=== PATIENT | female | born 1985 | race Caucasian/White ===

== ENCOUNTER 2020-09-15 08:32 | Emergency (ER) | payer BC ==
[~2020-09-15] VITALS: Ht 162.6 cm; Wt 77.0 kg
[2020-09-15 09:03] LABS: BILIRUBIN,URINE NEGATIVE (NEG); CLARITY,URINE CLEAR; COLOR,URINE YELLOW; NITRITE,URINE NEGATIVE (NEG); PH,URINE 8.5 (<5.0-8.0); PROTEIN,URINE NEGATIVE (NEG-TRACE); UROBILINOGEN,URINE 0.2 mg/dL (0.2 mg/dL)
[2020-09-15 09:16] LABS: BASO # 0.1 x10^3/uL (0.0-0.2); BASO % 2 % (0-3); EOS # 0.1 x10^3/uL (0.0-0.7); EOS % 2 % (0-3); HEMATOCRIT 39.8 % (36.0-47.0); HEMOGLOBIN 13.9 g/dL (12.0-15.5); LYMPH # 1.6 x10^3/uL (1.0-4.8); LYMPH % 25 % (24-48); MEAN CORPUSCULAR HEMOGLOBIN 33 pg (25-35); MEAN CORPUSCULAR HGB CONC 35 g/dL (31-37); MEAN CORPUSCULAR VOLUME 95 fL (79-100); MONO # 0.6 x10^3/uL (0.0-1.1); MONO % 10 % (0-9); NEUT # 3.9 x10^3/uL (1.8-7.7); NEUT % 62 % (31-73); PLATELET COUNT 261 x10^3/uL (140-400); RED BLOOD COUNT 4.21 x10^6/uL (3.50-5.40); RED CELL DISTRIBUTION WIDTH 14.2 % (11.5-14.5); WHITE BLOOD COUNT 6.2 x10^3/uL (4.0-11.0)
--- NOTE | 2020-09-15 09:22 | PHYS DOC ---
Past Medical History Past Medical History: Anxiety, Depression, Hypertension, Other Additional Past Medical Histor: PTSD Past Surgical History: Other Additional Past Surgical Histo: BACK SURGERY X3 Smoking Status: Current Every Day Smoker Alcohol Use: Heavy General Adult EDM: Chief Complaint: NAUSEA/VOMITING/DIARRHA HPI: HPI: Patient is a 35 year old female who presented to ER for evaluation of nausea vomiting, chest pain, epigastric abdominal pain since yesterday. Patient said when she coughed she noticed some trace of blood . Patient also noticed some blood in her vomitus this morning. Patient denies being on blood thinner. Patient had the same problem when she was seen at [facility] on September 01, 2020. Patient had a negative ultrasound of her abdomen and a negative CTA of her chest. Patient was tested for COVID-19 at the time and it was negative as well. Patient denies any recent travel or operation. Patient had history hypertension. Patient has been going through a rough time lately. She has been drinking alcohol a lot due to stress. Patient denied suicidal ideation, denied homicidal ideation. Review of Systems: Review of Systems: Constitutional: Denies fever or chills. [] Eyes: Denies change in visual acuity. [] HENT: Denies nasal congestion or sore throat. [] Respiratory: Positive for cough and shortness of breath. [] Cardiovascular: Denies chest pain or edema. [] GI: Positive for abdominal pain, nausea, vomiting, bloody stools or diarrhea. [] : Denies dysuria. [] Musculoskeletal: Denies back pain or joint pain. [] Integument: Denies rash. [] Neurologic: Denies headache, focal weakness or sensory changes. [] Endocrine: Denies polyuria or polydipsia. [] Lymphatic: Denies swollen glands. [] Psychiatric: Denies depression or anxiety. [] Heart Score: Risk Factors: Risk Factors: DM, Current or recent (<one month) smoker, HTN, HLP, family history of CAD, obesity. Risk Scores: Score 0 - 3: 2.5% MACE over next 6 weeks - Discharge Home Score 4 - 6: 20.3% MACE over next 6 weeks - Admit for Clinical Observation Score 7 - 10: 72.7% MACE over next 6 weeks - Early Invasive Strategies Allergies: Allergies: Allergies Coded Allergies Type Severity Reaction Last Updated Verified No Known Drug Allergies 09/15/20 No Physical Exam: PE: Constitutional: Well developed, well nourished, no acute distress, non-toxic appearance. [] HENT: Normocephalic, atraumatic, bilateral external ears normal, oropharynx moist, no oral exudates, nose normal. [] Eyes: PERRLA, EOMI, conjunctiva normal, no discharge. [] Neck: Normal range of motion, no tenderness, supple, no stridor. [] Cardiovascular:Heart rate regular rhythm, no murmur [] Lungs & Thorax: Bilateral breath sounds clear to auscultation [] Abdomen: Bowel sounds normal, soft, no tenderness, no masses, no pulsatile masses. [] Skin: Warm, dry, no erythema, no rash. [] Back: No tenderness, no CVA tenderness. [] Extremities: No tenderness, no cyanosis, no clubbing, ROM intact, no edema. [] Neurologic: Alert and oriented X 3, normal motor function, normal sensory function, no focal deficits noted. [] Psychologic: Affect normal, judgement normal, mood normal. [] Current Patient Data: Labs: Laboratory Tests Test 09/15/20 08:50 POC Urine HCG, Qualitative Hcg negative (Negative) Vital Signs: Vital Signs Date Time Temp Pulse Resp B/P (MAP) Pulse Ox O2 Delivery O2 Flow Rate FiO2 09/15/20 08:40 98.6 100 18 203/114 (143) 99 Room Air 98.6 EKG: EKG: EKG was done at 847, heart rate 94 bpm, sinus rhythm, no ST segment elevation. Radiology/Procedures: Radiology/Procedures: [][facility] [address] [place] [address] IMAGING REPORT Signed PATIENT: JULIA GURROLA ACCOUNT: [id number] : 1985 LOCATION: ER AGE: 35 SEX: F EXAM STATUS: REG ER ORD. PHYSICIAN: MILEY BOOKER DO REASON: chest pain X 2 WEEKS PROCEDURE: CHEST AP ONLY INDICATION: Reason: chest pain X 2 WEEKS / Spl. Instructions: / History: COMPARISON: September 01, 2020 FINDINGS: Single view of chest obtained. No focal airspace consolidation. Cardiomediastinal contour unremarkable. No acute osseous abnormality. IMPRESSION: * No focal airspace consolidation or edema. Electronically signed by: Veronica Nieto MD (09/15/2020 10:15 AM) [id number] DICTATED and SIGNED BY: VERONICA NIETO MD DATE: 09/15/20 [id number] [facility] [address] [place] [address] IMAGING REPORT Signed PATIENT: JULIA GURROLA ACCOUNT: [id number] : 1985 LOCATION: ER AGE: 35 SEX: F EXAM STATUS: REG ER ORD. PHYSICIAN: MILEY BOOKER DO REASON: RUQ, EPIGASTRIC ABDOMINAL PAIN, ELEVATED LFT PROCEDURE: ABDOMEN LTD INDICATION : Reason: RUQ, EPIGASTRIC ABDOMINAL PAIN, ELEVATED LFT / Spl. Instructions: / History: COMPARISON: None TECHNIQUE: Multiple ultrasound images obtained through the abdomen in grayscale and color. FINDINGS: Liver: Echogenic. Gallbladder: There are some low-level internal echoes. IVC: Partially distended at level of liver. Common Bile Duct: Not dilated. Pancreas: No gross abnormality identified in visualized portions of pancreas. Right Kidney: No hydronephrosis. IMPRESSION: * Liver is mildly echogenic. Nonspecific but can be seen with fatty infiltration. * Low-level internal echoes at the gallbladder. Could be from artifact or a small amount of debris within Electronically signed by: Veronica Nieto MD (09/15/2020 12:13 PM) [id number] DICTATED and SIGNED BY: VERONICA NIETO MD DATE: 09/15/20 [id number] Course & Med Decision Making: Course & Med Decision Making Pertinent Labs and Imaging studies reviewed. (See chart for details) Patient feel much better, she did not want to stay in the hospital. Patient will be discharged home with a new medication for her blood pressure. Patient will need to follow-up with her family physician for reevaluation this week. Dragon Disclaimer: Dragon Disclaimer: This electronic medical record was generated, in whole or in part, using a voice recognition dictation system. Departure Departure Impression: Primary Impression: Gastritis Additional Impressions: Hypertension Elevated liver enzymes Disposition: 01 HOME SELF CARE/HOMELESS Condition: IMPROVED Referrals: DAPHNE BLOOM (PCP) please follow up with your doctor this week for reevaluation Patient Instructions: Alcoholic Liver Disease, [id number], Gastritis, Adult, Hypertension Additional Instructions: Thank you for visiting our Emergency Department. We appreciate you trusting us with your care. If any additional problems come up don't hesitate to return to visit us. Please follow up with your primary care provider so they can plan additional care if needed and know about the problem that you had. If symptoms worsen come back to the Emergency Department. Any concerning symptoms that start such as chest pain, shortness of air, weakness or numbness on one side of the body, running high fevers or any other concerning symptoms return to the ER. Scripts Amlodipine Besylate (NORVASC) 5 Mg Tablet 1 TAB PO DAILY, #30 TAB Prov: MILEY BOOKER DO 09/15/20 Sucralfate (CARAFATE) 1 Gm Tablet 1 TAB PO QID for 14 Days, #56 TAB 0 Refills Prov: MILEY BOOKER DO 09/15/20 Omeprazole Magnesium (PRILOSEC OTC) 20 Mg Tablet.dr 1 TAB PO DAILY for 30 Days, #30 TAB 0 Refills Prov: MILEY BOOKER DO 09/15/20 MILEY BOOKER DO Sep 15, 2020 09:22
[2020-09-15 09:31] LABS: BACTERIA,URINE 0 /HPF (0-FEW); WBC,URINE RARE /HPF (0-4)
[2020-09-15 09:32] LABS: RBC,URINE 0 /HPF (0-2)
[2020-09-15 09:52] LABS: PROTHROMBIN TIME PATIENT 12.4 SEC (11.7-14.0)
[2020-09-15 10:13] LABS: CALCIUM 9.3 mg/dL (8.5-10.1); CREATININE 0.9 mg/dL (0.6-1.0); GFR 71.7; POTASSIUM 3.1 mmol/L (3.5-5.1)
[2020-09-15] MEDS ORDERED: MORPHINE SULFATE 4 MG/ML VIAL. IV ONE ×2 (10:15→12:30)
[2020-09-15] MEDS ORDERED: ONDANSETRON PF 4 MG/2 ML VIAL. IVP ONE (10:15)
--- NOTE | 2020-09-15 10:17 | RAD ---
INDICATION: Reason: chest pain X 2 WEEKS / Spl. Instructions: / History: COMPARISON: September 01, 2020 FINDINGS: Single view of chest obtained. No focal airspace consolidation. Cardiomediastinal contour unremarkable. No acute osseous abnormality. IMPRESSION: * No focal airspace consolidation or edema. Electronically signed by: Pelon Sexton MD (09/15/2020 10:15 AM) [id number]
[2020-09-15 10:19] LABS: ALBUMIN 3.9 g/dL (3.4-5.0); ALBUMIN/GLOBULIN RATIO 1.1 (1.0-1.7); MAGNESIUM 1.7 mg/dL (1.8-2.4); TOTAL BILIRUBIN 0.6 mg/dL (0.2-1.0); TOTAL PROTEIN 7.5 g/dL (6.4-8.2)
[2020-09-15] MEDS ORDERED: POTASSIUM CHLORIDE 10 MEQ TABLET.ER. PO ONE (10:45)
[2020-09-15] MEDS ORDERED: MAGNESIUM SULFATE 1GM 100 ML IV ONE (12:00)
--- NOTE | 2020-09-15 12:16 | RAD ---
INDICATION : Reason: RUQ, EPIGASTRIC ABDOMINAL PAIN, ELEVATED LFT / Spl. Instructions: / History: COMPARISON: None TECHNIQUE: Multiple ultrasound images obtained through the abdomen in grayscale and color. FINDINGS: Liver: Echogenic. Gallbladder: There are some low-level internal echoes. IVC: Partially distended at level of liver. Common Bile Duct: Not dilated. Pancreas: No gross abnormality identified in visualized portions of pancreas. Right Kidney: No hydronephrosis. IMPRESSION: * Liver is mildly echogenic. Nonspecific but can be seen with fatty infiltration. * Low-level internal echoes at the gallbladder. Could be from artifact or a small amount of debris within Electronically signed by: Pelon Sexton MD (09/15/2020 12:13 PM) [id number]
[2020-09-15] MEDS ORDERED: cloNIDine HCL 0.1 MG TABLET PO ONE (12:30)
[2020-09-15 13:21] VITALS: BP 180/105
[2020-09-15] MEDS ORDERED: AMLO5TAB4 PO (13:22)
[2020-09-15] MEDS ORDERED: OMEP20TA63 PO (13:22)
[2020-09-15] MEDS ORDERED: SUCR1TAB35 PO (13:22)
--- NOTE | 2020-09-16 15:47 | NUR ---
IP: Attempted to call COVID results. No answer. Voicemail box full and could not leave a message.
--- NOTE | 2020-09-17 09:41 | NUR ---
IP: Pt called to get COVID results. Informed pt of negative test. Pt verbalized understanding.
== END 2020-09-15 13:45 | disposition home or self-care (01) ==
LOC: ER 08:32
DX: K29.70 Gastritis, unspecified, without bleeding (principal); I10 Essential (primary) hypertension; Z20.818 Contact with and (suspected) exposure to other bacterial communicable diseases; R74.8 Abnormal levels of other serum enzymes; R10.13 Epigastric pain; R11.2 Nausea with vomiting, unspecified; R07.89 Other chest pain; F41.9 Anxiety disorder, unspecified; F32.9 Major depressive disorder, single episode, unspecified; F17.200 Nicotine dependence, unspecified, uncomplicated; F10.10 Alcohol abuse, uncomplicated; F43.10 Post-traumatic stress disorder, unspecified; Z98.890 Other specified postprocedural states
CPT/HCPCS: 36415; 71045; 76705; 80053; 81001; 81025; 83690; 83735; 83880; 84484; 85025; 85610; 85730; 93005; 96365; 96375; 96376; 99285; C9803; J2270; J2405; J3475; U0003

== ENCOUNTER 2020-12-08 11:35 | Emergency (ER) | payer BC ==
[~2020-12-08] VITALS: Ht 162.6 cm; Wt 80.0 kg
[~2020-12-08 11:35] MED LIST: AMLO5TAB4 PO; OMEP20TA63 PO; SUCR1TAB35 PO
[2020-12-08] MEDS ORDERED: IV NORMAL SALINE 1000ML BAG 1,000 ML IV SCH (12:45)
[2020-12-08] MEDS ORDERED: ONDANSETRON PF 4 MG/2 ML VIAL. IVP ONE ×2 (12:45→18:45)
[2020-12-08] MEDS ORDERED: MORPHINE SULFATE 4 MG/ML VIAL. IV ONE ×2 (12:45→16:30)
[2020-12-08 13:33] LABS: BASO # 0.1 x10^3/uL (0.0-0.2); BASO % 1 % (0-3); EOS % 0 % (0-3); HEMATOCRIT 41.2 % (36.0-47.0); HEMOGLOBIN 14.5 g/dL (12.0-15.5); LYMPH # 1.1 x10^3/uL (1.0-4.8); LYMPH % 19 % (24-48); MEAN CORPUSCULAR HEMOGLOBIN 37 pg (25-35); MEAN CORPUSCULAR HGB CONC 35 g/dL (31-37); MEAN CORPUSCULAR VOLUME 105 fL (79-100); MONO # 0.4 x10^3/uL (0.0-1.1); MONO % 7 % (0-9); NEUT # 4.1 x10^3/uL (1.8-7.7); NEUT % 72 % (31-73); PLATELET COUNT 123 x10^3/uL (140-400); RED BLOOD COUNT 3.92 x10^6/uL (3.50-5.40); RED CELL DISTRIBUTION WIDTH 18.3 % (11.5-14.5); WHITE BLOOD COUNT 5.7 x10^3/uL (4.0-11.0)
--- NOTE | 2020-12-08 13:38 | RAD ---
INDICATION : Reason: ruq PAIN / Spl. Instructions: / History: COMPARISON: September 15, 2020 TECHNIQUE: Multiple ultrasound images obtained through the abdomen in grayscale and color. FINDINGS: Liver: Echogenic Gallbladder: No wall thickening or stones. IVC: Partially distended at level of liver. Common Bile Duct: Not dilated. Pancreas: No gross abnormality identified in visualized portions of pancreas. Only partially seen sec ondary to overlying structures obscuring. Right Kidney: No hydronephrosis. IMPRESSION: * No biliary ductal dilation or gallstones. * Liver is echogenic. Nonspecific but can be seen with fatty infiltration. Electronically signed by: Pelon Sexton MD (12/08/2020 1:36 PM) [id number]
[2020-12-08 13:52] LABS: ALBUMIN 3.6 g/dL (3.4-5.0); CALCIUM 8.8 mg/dL (8.5-10.1); CREATININE 0.9 mg/dL (0.6-1.0); GFR 71.7; TOTAL BILIRUBIN 1.2 mg/dL (0.2-1.0); TOTAL PROTEIN 7.2 g/dL (6.4-8.2)
[2020-12-08 13:58] LABS: BILIRUBIN,URINE NEGATIVE (NEG); CLARITY,URINE CLEAR; COLOR,URINE YELLOW; NITRITE,URINE NEGATIVE (NEG); PROTEIN,URINE NEGATIVE (NEG-TRACE); UROBILINOGEN,URINE 0.2 mg/dL (0.2 mg/dL)
[2020-12-08 14:02] LABS: POTASSIUM 2.9 mmol/L (3.5-5.1)
[2020-12-08] MEDS ORDERED: FAMOTIDINE 20 MG/2 ML VIAL IVP ONE (14:15)
[2020-12-08 14:16] LABS: BACTERIA,URINE 0 /HPF (0-FEW); RBC,URINE 0 /HPF (0-2); WBC,URINE OCC /HPF (0-4)
[2020-12-08] MEDS ORDERED: KETOROLAC 15 MG/ML VIAL. IVP ONE (15:15)
[2020-12-08] MEDS ORDERED: CONTRAST GIVEN. MC PRN (15:15)
[2020-12-08] MEDS ORDERED: IOHEXOL 300 MG/ML 100ML VIAL. IV ONE (15:30)
--- NOTE | 2020-12-08 15:36 | RAD ---
INDICATION: Reason: abd pain / Spl. Instructions: IV OMNI 300 75 MLS / History: . COMPARISON: Ultrasound from earlier same day TECHNIQUE: Axial CT images obtained through the abdomen and pelvis with contrast. One or more of the following individualized dose reduction techniques were utilized for this examinat ion: 1. Automated exposure control; 2. Adjustment of the mA and/or kV according to patient size; 3 . Use of iterative reconstruction technique. FINDINGS: Abdominal aorta is not aneurysmal. Liver is diffusely low density. No peripancreatic fluid collection. Spleen is unremarkable. No left-sided hydronephrosis. Urinary bladder partially distended. No right-sided hydronephrosis. No periappendiceal inflammatory changes. Colon is contracted which limits evaluation. No dilated loops of bowel to suggest obstruction. Degenerative changes of the spine. IMPRESSION: * No evidence of bowel obstruction or appendicitis. * No hydronephrosis. * Liver is echogenic. Nonspecific but can be seen with fatty infiltration. Electronically signed by: Pelon Sexton MD (12/08/2020 3:34 PM) [id number]
--- NOTE | 2020-12-08 17:59 | PHYS DOC ---
Past Medical History Past Medical History: Anxiety, Depression, Hypertension, Liver Disease, Other Additional Past Medical Histor: PTSD (RENETTA CATES MD) Past Surgical History: Other Additional Past Surgical Histo: BACK SURGERY X3 (RENETTA CATES MD) Smoking Status: Current Every Day Smoker Alcohol Use: Heavy (RENETTA CATES MD) Adult General Chief Complaint Chief Complaint: COUGH HPI HPI Patient is a 35 year old female with past medical history of anxiety depression presenting emergency department complaint of new onset right-sided chest and right upper quadrant abdominal pain. Patient states it started 2 days ago as a worsening sensation associated with mild nausea without any episodes of vomiting or diarrhea. Denies any associated fever. But does state that she. Notes the pain is worse with inspiration. Denies any history of similar symptoms. (RENETTA CATES MD) Review of Systems Review of Systems Constitutional: Denies fever or chills [] Eyes: Denies change in visual acuity, redness, or eye pain [] HENT: Denies nasal congestion or sore throat [] Respiratory: Denies cough or shortness of breath [] Cardiovascular: No additional information not addressed in HPI [] GI: Denies abdominal pain, nausea, vomiting, bloody stools or diarrhea [] : Denies dysuria or hematuria [] Musculoskeletal: Denies back pain or joint pain [] Integument: Denies rash or skin lesions [] Neurologic: Denies headache, focal weakness or sensory changes [] Endocrine: Denies polyuria or polydipsia [] All other systems were reviewed and found to be within normal limits, except as documented in this note. (RENETTA CATES MD) Current Medications Current Medications Current Medications Medications (Trade) Dose Ordered Sig/Deborah Start Time Stop Time Status Last Admin Dose Admin Famotidine (Pepcid Vial) 20 mg 1X ONCE 12/08/20 14:15 12/08/20 14:16 DC 12/08/20 15:03 20 MG Info (CONTRAST GIVEN -- Rx MONITORING) 1 each PRN DAILY PRN 12/08/20 15:15 12/10/20 15:14 Iohexol (Omnipaque 300 Mg/ml) 75 ml 1X ONCE 12/08/20 15:30 12/08/20 15:31 DC 12/08/20 15:14 75 ML Ketorolac Tromethamine (Toradol 15mg Vial) 15 mg 1X ONCE 12/08/20 15:15 12/08/20 15:16 DC 12/08/20 15:03 15 MG Lorazepam (Ativan Inj) 1 mg 1X ONCE 12/08/20 18:15 12/08/20 18:16 DC 12/08/20 18:32 1 MG Morphine Sulfate (Morphine Sulfate) 4 mg 1X ONCE 12/08/20 16:30 12/08/20 16:31 DC 12/08/20 16:42 4 MG Ondansetron HCl (Zofran) 4 mg 1X ONCE 12/08/20 18:45 12/08/20 18:46 DC 12/08/20 18:35 4 MG Sodium Chloride 1,000 ml @ 1,000 mls/hr Q1H 12/08/20 12:45 12/08/20 13:44 DC 12/08/20 13:43 1,000 MLS/HR (LE,AJ H DO) Allergies Allergies Allergies Coded Allergies Type Severity Reaction Last Updated Verified No Known Drug Allergies 09/15/20 No (LE,AJ H DO) Physical Exam Physical Exam Constitutional: Well developed, well nourished, no acute distress, non-toxic appearance. [] HENT: Normocephalic, atraumatic, bilateral external ears normal, oropharynx moist, no oral exudates, nose normal. [] Eyes: PERRLA, EOMI, conjunctiva normal, no discharge. [] Neck: Normal range of motion, no tenderness, supple, no stridor. [] Cardiovascular:Heart rate regular rhythm, no murmur [] Lungs & Thorax: Bilateral breath sounds clear to auscultation [] Abdomen: Bowel sounds normal, soft, moderate right upper quadrant tenderness., no masses, no pulsatile masses. [] Skin: Warm, dry, no erythema, no rash. [] Back: No tenderness, no CVA tenderness. [] Extremities: No tenderness, no cyanosis, no clubbing, ROM intact, no edema. [] Neurologic: Alert and oriented X 3, normal motor function, normal sensory funct ion, no focal deficits noted. [] Psychologic: Affect normal, judgement normal, mood normal. [] (RENETTA CATES MD) Current Patient Data Vital Signs Vital Signs Date Time Temp Pulse Resp B/P (MAP) Pulse Ox O2 Delivery O2 Flow Rate FiO2 12/08/20 17:20 91 135/74 (94) 95 Room Air 12/08/20 16:42 18 12/08/20 13:45 97.2 97.2 (LE,AJ H DO) Lab Values Laboratory Tests Test 12/08/20 13:20 12/08/20 13:28 White Blood Count 5.7 x10^3/uL (4.0-11.0) Red Blood Count 3.92 x10^6/uL (3.50-5.40) Hemoglobin 14.5 g/dL (12.0-15.5) Hematocrit 41.2 % (36.0-47.0) Mean Corpuscular Volume 105 fL (79-100) H Mean Corpuscular Hemoglobin 37 pg (25-35) H Mean Corpuscular Hemoglobin Concent 35 g/dL (31-37) Red Cell Distribution Width 18.3 % (11.5-14.5) H Platelet Count 123 x10^3/uL (140-400) L Neutrophils (%) (Auto) 72 % (31-73) Lymphocytes (%) (Auto) 19 % (24-48) L Monocytes (%) (Auto) 7 % (0-9) Eosinophils (%) (Auto) 0 % (0-3) Basophils (%) (Auto) 1 % (0-3) Neutrophils # (Auto) 4.1 x10^3/uL (1.8-7.7) Lymphocytes # (Auto) 1.1 x10^3/uL (1.0-4.8) Monocytes # (Auto) 0.4 x10^3/uL (0.0-1.1) Eosinophils # (Auto) 0.0 x10^3/uL (0.0-0.7) Basophils # (Auto) 0.1 x10^3/uL (0.0-0.2) D-Dimer (Winter) 1.08 ug/mlFEU (0.00-0.50) H Urine Collection Type Unknown Urine Color Yellow Urine Clarity Clear Urine pH 7.0 (<5.0-8.0) Urine Specific [place] <=1.005 (1.000-1.030) Urine Protein Negative mg/dL (NEG-TRACE) Urine Glucose (UA) Negative mg/dL (NEG) Urine Ketones (Stick) Negative mg/dL (NEG) Urine Blood Trace (NEG) Urine Nitrite Negative (NEG) Urine Bilirubin Negative (NEG) Urine Urobilinogen Dipstick 0.2 mg/dL (0.2 mg/dL) Urine Leukocyte Esterase Negative (NEG) Urine RBC 0 /HPF (0-2) Urine WBC Occ /HPF (0-4) Urine Squamous Epithelial Cells Few /LPF Urine Bacteria 0 /HPF (0-FEW) Sodium Level 132 mmol/L (136-145) L Potassium Level 2.9 mmol/L (3.5-5.1) *L Chloride Level 91 mmol/L (98-107) L Carbon Dioxide Level 27 mmol/L (21-32) Anion Gap 14 (6-14) Blood Urea Nitrogen 3 mg/dL (7-20) L Creatinine 0.9 mg/dL (0.6-1.0) Estimated GFR (Cockcroft-Gault) 71.7 BUN/Creatinine Ratio 3 (6-20) L Glucose Level 88 mg/dL (70-99) Calcium Level 8.8 mg/dL (8.5-10.1) Total Bilirubin 1.2 mg/dL (0.2-1.0) H Aspartate Amino Transferase (AST) 192 U/L (15-37) H Alanine Aminotransferase (ALT) 127 U/L (14-59) H Alkaline Phosphatase 129 U/L (46-116) H Total Protein 7.2 g/dL (6.4-8.2) Albumin 3.6 g/dL (3.4-5.0) Albumin/Globulin Ratio 1.0 (1.0-1.7) Lipase 285 U/L (73-393) POC Urine HCG, Qualitative Hcg negative (Negative) Laboratory Tests 12/08/20 13:20 Laboratory Tests 12/08/20 13:20 (LE,AJ H DO) EKG EKG [] (RENETTA CATES MD) Radiology/Procedures Radiology/Procedures [] (RENETTA CATES MD) Radiology/Procedures Perfusion lung scan HISTORY: Shortness of breath and chest pain, elevated d-dimer. TECHNIQUE: 5 mCi technetium 99m macroaggregated albumin intravenous. No ventilatory imaging was acquired due to the current Covid pandemic protocol. COMPARISON: Chest x-ray September 15, 2020 FINDINGS: No perfusion defect of the lungs evident. Negative for pulmonary emboli. IMPRESSION: Negative for pulmonary artery emboli. Electronically signed by: Mukesh Enamorado MD (12/08/2020 6:40 PM) [facility] (AJ PEREZ DO) Course & Med Decision Making Course & Med Decision Making Pertinent Labs and Imaging studies reviewed. (See chart for details) 35f new onset of right upper quadrant abdominal pain with some tenderness in the right breast primary concern for acute cholecystitis given the patient's age and physical exam. Will initiate work-up with labs and ultrasound to evaluate. Initial evaluation with ultrasound and CT was negative. However the patient stated still having significant abdominal pain and did note some chest pain with significant pleurisy. Patient was also noted to be tachycardic on arrival. I did obtain a D-dimer which was positive. I had a discussion with radiology since the patient already received a CT scan with contrast I recommend patient go for VQ scan to rule out pulmonary embolism. This has been relayed to the patient she understands the current plan (RENETTA CATES MD) Course & Med Decision Making Assumed care from Dr. Cates. In summary, 35-year-old female who presents with 2 days of right upper quadrant and right lower chest pain. Pending was a VQ scan, which was found to be negative for PE. Review of labs show a mild transaminitis as well as hypokalemia, to be repleted orally. The previously ordered CT abdomen/pelvis as well as right upper quadrant ultrasound do reveal findings consistent with possible hepatic steatosis, which would account for the transaminitis. No acute emergent pathology was identified. Do not suspect cardiac etiology. Will be discharged home with outpatient PMD and gastroe nterology follow-up. Return precautions given. (AJ PEREZ DO) Dragon Disclaimer Dragon Disclaimer This electronic medical record was generated, in whole or in part, using a voice recognition dictation system. (RENETTA CATES MD) Departure Departure Impression: Primary Impression: Hepatic steatosis Disposition: 01 DC HOME SELF CARE/HOMELESS Condition: STABLE Referrals: SERENA MUNGUIA MD Patient Instructions: Liver Disease Diet Additional Instructions: Your imaging in the ED today showed "fatty infiltration" of the liver. Your liver enzymes were also slightly elevated. There was no evidence of acute cholecystitis (gallbladder infection/inflammation). Please follow up with gastroenterology for further evaluation. Avoid significant alcohol use in the interim. Scripts Ondansetron (ONDANSETRON ODT) 4 Mg Tab.rapdis 1 TAB PO PRN Q6-8HRS, #16 TAB Prov: AJ PEREZ DO 12/08/20 RENETTA CATES MD Dec 08, 2020 17:59 AJ PEREZ DO Dec 08, 2020 19:05
[2020-12-08] MEDS ORDERED: ONDANSETRON PF 4 MG/2 ML VIAL. ONE (18:28)
--- NOTE | 2020-12-08 18:42 | RAD ---
Perfusion lung scan HISTORY: Shortness of breath and chest pain, elevated d-dimer. TECHNIQUE: 5 mCi technetium 99m macroaggregated albumin intravenous. No ventilatory imaging was acqui red due to the current Covid pandemic protocol. COMPARISON: Chest x-ray September 15, 2020 FINDINGS: No perfusion defect of the lungs evident. Negative for pulmonary emboli. IMPRESSION: Negative for pulmonary artery emboli. Electronically signed by: Mukesh Enamorado MD (12/08/2020 6:40 PM) [facility]
[2020-12-08] MEDS ORDERED: POTASSIUM CHLORIDE 20 MEQ TABLET.ER. PO ONE (19:00)
[2020-12-08] MEDS ORDERED: ONDA4TAB12 PO (19:02)
[2020-12-08] MEDS ORDERED: CHLO25CA9 PO (19:26)
[2020-12-08 19:36] VITALS: BP 145/88
== END 2020-12-08 19:50 | disposition home or self-care (01) ==
LOC: ER 11:35
DX: K76.0 Fatty (change of) liver, not elsewhere classified (principal); R10.11 Right upper quadrant pain; R20.2 Paresthesia of skin; R11.0 Nausea; F41.9 Anxiety disorder, unspecified; F32.9 Major depressive disorder, single episode, unspecified; I10 Essential (primary) hypertension; F17.200 Nicotine dependence, unspecified, uncomplicated; F10.10 Alcohol abuse, uncomplicated; Z98.890 Other specified postprocedural states
CPT/HCPCS: 36415; 74177; 76705; 78580; 80053; 81001; 81025; 83690; 85025; 85379; 96361; 96374; 96375; 96376; 99285; A9540; J1885; J2060; J2270; J2405; J3490; J7030; Q9967

== ENCOUNTER → 2021-07-28 | Outpatient (CLI) | payer MEDICAID ==
[~2021-07-28] VITALS: Ht 162.6 cm; Wt 54.4 kg
[~2021-07-28] MED LIST changes: +CBD PO; +CHLO25CA9 PO; +FLUO40CA2 PO; +HYDR2TAB31 PO; +MORPHINE SULFATE 2 MG/ML INJ. IVP ONE; +MORPHINE SULFATE 4 MG/ML INJ. ONE; +ONDA4TAB12 PO; +SINCALIDE 1.09 MCG in IV NORMAL SALINE 50ML 30 ML IV ONE; +VENTOLIN HFA18 GM INH
[2021-07-28 08:54] LABS: CHOLESTEROL/HDL RATIO 2.2
--- NOTE | 2021-07-28 12:27 | RAD ---
HEPATOBILIARY SCAN WITH EJECTION FRACTION History: Reason: ABDOMEN PAIN, recurrent pancreatitis COMPARISON: CT abdomen and pelvis with contrast 12/08/2020. Procedure: Serial static images are obtained of the liver and biliary system in the frontal projectio n following IV administration of 5.5 mCi of Technetium 99m Choletec. After filling of the gallbladd er, 1.1 mcg of sincalide were infused over 30 minutes and dynamic imaging continued over this period. The gallbladder ejection fraction was calculated. Findings: There is prompt hepatic clearance of tracer from the blood pool. There is homogeneous distribution th roughout the liver. There is normal emptying into the biliary system and small bowel. Tracer in the g allbladder is not visualized until 75 minute delay image. The sincalide infusion is then started. The gallbladder ejection fraction measures 1% (normal gallbladder EF is 35% or greater). IMPRESSION: 1. The cystic duct and common bile duct are patent. Negative for acute cholecystitis. 2. The gallbladder ejection fraction is abnormal measuring 1%. Findings may indicate gallbladder dysk inesia or chronic cholecystitis. Electronically signed by: Heath Hauser MD (07/28/2021 12:24 PM) [id number]
[2021-07-29 14:18] LABS: CA 19-9 31 U/mL (0-35)
== END ==
LOC: NM 09:03
PROVIDERS: ATTEND Internal Medicine Gastroenterology
DX: K83.5 Biliary cyst (principal); K85.00 Idiopathic acute pancreatitis without necrosis or infection
CPT/HCPCS: 36415; 78227; 80061; 82784; 86301; A9537; J2805

== ENCOUNTER → 2021-08-06 | Outpatient (CLI) | payer MEDICAID ==
[~2021-08-06] MED LIST changes: -MORPHINE SULFATE 2 MG/ML INJ. IVP ONE; -MORPHINE SULFATE 4 MG/ML INJ. ONE; +OXYC-325 PO; -SINCALIDE 1.09 MCG in IV NORMAL SALINE 50ML 30 ML IV ONE
== END ==
LOC: LAB 11:04
PROVIDERS: ATTEND Surgery
DX: K82.8 Other specified diseases of gallbladder (principal); Z01.812 Encounter for preprocedural laboratory examination; Z20.822 Contact with and (suspected) exposure to COVID-19
CPT/HCPCS: U0003; U0005

== ENCOUNTER 2021-08-10 06:06 | Day surgery (SDC) | payer MEDICAID ==
[~2021-08-10] VITALS: Ht 162.6 cm; Wt 52.7 kg
[~2021-08-10 06:06] MED LIST changes: +ACETAMINOPHEN 500 MG TABLET PO PRN; +DEXAMETHASONE SOD PHOS 4 MG/ML VIAL ONE; +GLYCOPYRROLATE 1 MG/5 ML VIAL. ONE; +HYDROmorphone 2 MG/ML VIAL IVP PRN; +HYDROmorphone 2 MG/ML VIAL ONE; +IV RINGERS,LACTATED 1000ML 1,000 ML IV SCH; +KETAMINE HCL IN NACL, ISO-OSM 50 MG/5 ML SYRINGE ONE; +LIDOCAINE 2% PF 5 ML VIAL. ONE; +MIDAZOLAM HCL/PF 2 MG/2 ML VIAL. ONE; +NEOSTIGMINE METHYLSULFATE 5 MG/5 ML SYRINGE. ONE; +ONDANSETRON PF 4 MG/2 ML VIAL. ONE; -OXYC-325 PO; +PROCHLORPERAZINE 10 MG/2 ML VIAL. IVP PRN; +PROPOFOL 10 MG/ML (20ML) VIAL. IV ONE; +ROCURONIUM 50 MG/5 ML VIAL. ONE; +SUCCINYLCHOLINE 200 MG/10 ML VIAL. ONE; +ceFAZolin SODIUM IV Push 1 GM VIAL. IVP PRN; +fentaNYL PF VIAL 100 MCG/2 ML VIAL IVP PRN; +fentaNYL PF VIAL 100 MCG/2 ML VIAL ONE
[2021-08-10 06:40] VITALS: BP 117/84
[2021-08-10] MEDS ORDERED: IOHEXOL 300 MG/ML 50 ML VIAL. ONE (06:59)
[2021-08-10] MEDS ORDERED: SURGICEL HEMOSTAT 4X8 EACH. ONE (06:59)
[2021-08-10] MEDS ORDERED: BUPIVACAINE-EPI 0.25%-1:200000 MPF 30 ML VIAL. ONE (06:59)
[2021-08-10 07:40] LABS: CALCIUM 8.4 mg/dL (8.5-10.1); CREATININE 0.6 mg/dL (0.6-1.0); GFR 113.8; POTASSIUM 3.1 mmol/L (3.5-5.1)
[2021-08-10 07:46] LABS: ALBUMIN 2.9 g/dL (3.4-5.0); ALBUMIN/GLOBULIN RATIO 0.8 (1.0-1.7); TOTAL BILIRUBIN 0.4 mg/dL (0.2-1.0); TOTAL PROTEIN 6.4 g/dL (6.4-8.2)
--- NOTE | 2021-08-10 08:29 | PDOC4 ---
Operative Note Operative Note Date: August 102020 at 827 Preoperative diagnosis biliary dyskinesia Postoperative diagnosis: Same Procedure: Laparoscopic cholecystectomy with fluorescein cholangiography Surgeon: [place] Specimen: Gallbladder Dictation: Patient is a 36-year-old female has had right upper quadrant abdominal pain episodes of pancreatitis in the past HIDA scan showed ejection fraction of 1%. Procedure of laparoscopic cholecystectomy was explained to the patient detail risk benefits were also discussed including bleeding infection injury to intra-abdominal contents possible necessitating further open operations alternatives to this procedure also discussed with patient who seemed to understand and gave a verbal written consent to have the procedure performed. Patient was taken to the operating room placed in the supine position general anesthesia was initiated once patient was sleeping intubated her abdomen was prepped and draped usual sterile fashion using ChloraPrep area just below the umbilicus was injected with quarter percent Marcaine with epinephrine incision was made 11 blade scalpel and a varies needle was placed within the abdomen creating pneumoperitoneum once this was complete the millimeter port was placed in a 5 mm camera was placed within the abdomen which was inspected no other abnormalities were noted a 5 mm port was placed in the epigastrium a 5 mm port was placed in the right midabdomen a 5 mm port was placed in the right lateral abdomen all under direct visualization. The dome of the gallbladder is grasped retracted cephalad the infundibulum of the gallbladder is grasped retracted laterally exposing the triangle of adherent tissue the triangle were taken down exposing the cystic duct and cystic artery this was checked with fluorescein which showed contrast in the cystic duct as well as the common bile duct no evidence of obstruction the cystic duct was doubly clipped and transected the cystic artery was clipped and transected electrocautery the gallbladder was taken off the liver with hook electrocautery placed in Endo Catch bag moving the umbilicus right upper quadrant is irrigated suctioned dry hemostasis deemed be appropriate the pneumoperitoneum was reduced all ports were removed the fascial defect at the umbilicus was closed with [id number] 0 Vicryl suture skin was reapproximated all port sites for subcuticular Monocryl Mastisol Steri-Strips and island dressings were applied. Patient was awakened extubated operating room taken recovery in stable condition all sponge instrument needle counts listed as correct estimated blood loss 5 mL RENÉE PEPE MD Aug 10, 2021 08:29
[2021-08-10] MEDS ORDERED: OXYC-325 PO (08:31)
--- NOTE | 2021-08-10 08:33 | DISCH ---
DISCHARGE INSTRUCTIONS Condition on Discharge Condition on Discharge: Stable Activity After Discharge Activity Instructions for Disc: Avoid exertion Other activity instructions: No lifting more than 20 pounds for 2-week Diet after Discharge Diet after Discharge: Low Fat Wound Incision Care Other wound/incision instructi: May shower in 24 hours Contacting the DRCarmel after DC Call your doctor for: If your condition worsens Follow-Up Follow up with: Dr. Pepe in 2-week RENÉE PEPE MD Aug 10, 2021 08:33
[2021-08-10] MEDS ORDERED: MORPHINE SULFATE 2 MG/ML INJ. ONE (08:41)
[2021-08-10] MEDS: MORPHINE SULFATE 2 MG/ML INJ. IVP PRN ×2 (08:42→08:53)
[2021-08-10] MEDS ORDERED: fentaNYL PF VIAL 100 MCG/2 ML VIAL ONE (08:45)
[2021-08-10 08:52] VITALS: BP 117/74
[2021-08-10] MEDS ORDERED: HYDROcodone/APAP 5/325MG 1 TAB TABLET ONE (08:58)
[2021-08-10] MEDS ORDERED: oxyCODONE/APAP 5/325 1 TAB TABLET PO ONE (09:00)
[2021-08-10] MEDS: fentaNYL PF VIAL 100 MCG/2 ML VIAL IVP PRN ×2 (09:02→09:10)
[2021-08-10] MEDS ORDERED: ONDANSETRON PF 4 MG/2 ML VIAL. ONE (09:23)
[2021-08-10] MEDS ORDERED: ONDANSETRON PF 4 MG/2 ML VIAL. IVP ONE (09:30)
--- NOTE | 2021-08-11 16:09 | PATHOLOGY ---
[facility] Accession Number: [id number] . 01 Material submitted: . gallbladder - GALLBLADDER AND CONTENTS . 01 Clinical history: . BILIARY DYSKINESIA LAP REJI . 02 Diagnosis: Gallbladder, laparoscopic cholecystectomy: - Chronic cholecystitis, mild. . (JPM:mm; 08/11/2021) [facility] 08/11/2021 1052 Local . 02 Comment: There are no calculi identified within the gallbladder lumen or specimen container. There is no evidence of malignancy. . (JPM:mml; 08/11/2021) . 02 Electronically signed: . Eder Callaway MD, Pathologist NPI- [id number] . 01 Gross description: . Fixative: Formalin Labeled: Gallbladder and contents Specimen received: Intact gallbladder Dimensions: 7.1 x 3.0 x 2.5 cm Serosa: Purple-fermin and smooth to slightly roughened Lymph node: None identified Mucosa: Velvety, bile-stained Average wall thickness: Up to 0.3 Calculi: None present Abnormalities: None identified . A1- Engraver Flatware body, fundus, and the cystic duct margin. ([facility]; 08/10/2021) NRI/NRI 08/10/2021 1617 Local . 02 Microscopic: . . . 02 Pathologist provided ICD-10: K81.1 . 02 CPT . 087258 Specimen Comment: A courtesy copy of this report has been sent to [phone] Specimen Comment: Report sent to Performed at: [address] [facility] [address], [place], [place] [id number] MD Devin Kumari MD Phone: [phone] Performed at: 02 [facility] [address] [place], [place] [id number] MD Eder Callaway MD Phone: [phone]
== END 2021-08-10 09:37 | disposition home or self-care (01) ==
LOC: SURG 06:06
PROVIDERS: ATTEND Surgery
DX: K82.8 Other specified diseases of gallbladder (principal); K81.1 Chronic cholecystitis; I10 Essential (primary) hypertension; J45.909 Unspecified asthma, uncomplicated; K21.9 Gastro-esophageal reflux disease without esophagitis; F41.9 Anxiety disorder, unspecified; F32.9 Major depressive disorder, single episode, unspecified; F17.210 Nicotine dependence, cigarettes, uncomplicated; Z79.899 Other long term (current) drug therapy; Z98.890 Other specified postprocedural states; Z72.89 Other problems related to lifestyle
CPT/HCPCS: 36415; 47563; 74300; 80053; 81025; 83690; 88304; A4364; A4930; A6219; J0330; J0690; J1100; J1170; J2250; J2270; J2405; J2704; J2710; J3010; J3490; A4657; Q9967

== ENCOUNTER 2021-11-19 04:10 | Inpatient (IN) | payer MEDICAID ==
[~2021-11-19] VITALS: Ht 162.6 cm; Wt 50.7 kg
[~2021-11-19 04:10] MED LIST changes: -ACETAMINOPHEN 500 MG TABLET PO PRN; -DEXAMETHASONE SOD PHOS 4 MG/ML VIAL ONE; -GLYCOPYRROLATE 1 MG/5 ML VIAL. ONE; -HYDROmorphone 2 MG/ML VIAL IVP PRN; -HYDROmorphone 2 MG/ML VIAL ONE; -IV RINGERS,LACTATED 1000ML 1,000 ML IV SCH; -KETAMINE HCL IN NACL, ISO-OSM 50 MG/5 ML SYRINGE ONE; -LIDOCAINE 2% PF 5 ML VIAL. ONE; -MIDAZOLAM HCL/PF 2 MG/2 ML VIAL. ONE; -NEOSTIGMINE METHYLSULFATE 5 MG/5 ML SYRINGE. ONE; -ONDANSETRON PF 4 MG/2 ML VIAL. ONE; +OXYC-325 PO; -PROCHLORPERAZINE 10 MG/2 ML VIAL. IVP PRN; -PROPOFOL 10 MG/ML (20ML) VIAL. IV ONE; -ROCURONIUM 50 MG/5 ML VIAL. ONE; -SUCCINYLCHOLINE 200 MG/10 ML VIAL. ONE; -ceFAZolin SODIUM IV Push 1 GM VIAL. IVP PRN; -fentaNYL PF VIAL 100 MCG/2 ML VIAL IVP PRN; -fentaNYL PF VIAL 100 MCG/2 ML VIAL ONE
--- NOTE | 2021-11-19 04:13 | PHYS DOC ---
Past Medical History Past Medical History: Anxiety, Depression, Hypertension, Liver Disease, Other Additional Past Medical Histor: PTSD Past Surgical History: Other Additional Past Surgical Histo: BACK SURGERY X3 Smoking Status: Current Every Day Smoker Alcohol Use: Heavy General Adult EDM: Chief Complaint: CHEST PAIN HPI: HPI: Patient is a 36-year-old female presenting for epigastric pain. This is an acute on chronic issue. Reports she has history of pancreatitis, no other medical conditions. States she feels like presenting symptoms today is similar to prior flares. Reports symptom onset was approximately 2 days ago without any known exacerbating ingestion, trauma, allergen or mechanism of injury. Nothing known makes better, p.o. intake and palpation make worse. Pain is described as sharp and constant without radiation. She has been nauseous with several episodes of nonbloody nonbilious emesis. States initial etiology was thought to be gallbladder but patient reports multiple episodes after cholecystectomy, no other history of intra-abdominal surgeries. She has no prior history of pancreatic cysts, denies alcohol use, scorpion bites, electrolyte abnormalities or other precipitating factors for her pancreatitis flares Review of Systems: Review of Systems: Fourteen body systems of review of systems have been reviewed. See HPI for pertinent positives and negative responses, other avelar all other systems are negative, non-pertinent or non-contributory Heart Score: C/O Chest Pain: Yes HEART Score for Chest Pain: HEART Score for Chest Pain Response (Comments) Value History Slighlty/Non-Suspicious 0 ECG Nonspecific Repolarizatio 1 Age < 45 0 Risk Factors No Risk Factors 0 Total 1 Risk Factors: Risk Factors: DM, Current or recent (<one month) smoker, HTN, HLP, family hi story of CAD, obesity. Risk Scores: Score 0 - 3: 2.5% MACE over next 6 weeks - Discharge Home Score 4 - 6: 20.3% MACE over next 6 weeks - Admit for Clinical Observation Score 7 - 10: 72.7% MACE over next 6 weeks - Early Invasive Strategies Allergies: Allergies: Allergies Coded Allergies Type Severity Reaction Last Updated Verified No Known Drug Allergies 08/10/21 No Physical Exam: PE: Constitutional: Well developed, thin, moderate distress due to pain but is nontoxic in overall appearance HENT: Normocephalic, atraumatic, bilateral external ears normal, oropharynx moist, no oral exudates, nose normal. Eyes: PERRLA, EOMI, conjunctiva normal, no discharge. Neck: Normal range of motion, no tenderness, supple, no stridor. Cardiovascular: Heart rate tachycardic, sinus rhythm, no murmurs rubs or gallops Lungs & Thorax: Bilateral breath sounds clear to auscultation Abdomen: Bowel sounds normal, soft, epigastric tenderness with palpation without guarding or rebound, no masses, no pulsatile masses. Nonsurgical abdomen, no peritoneal signs Skin: Warm, dry, no erythema, no rash. Back: No tenderness, no CVA tenderness. Extremities: No tenderness, no cyanosis, no clubbing, ROM intact, no edema. Neurologic: Alert and oriented X 3, grossly normal motor & sensory function, no focal deficits noted. Psychologic: Anxious affect and mood Current Patient Data: Labs: Current Medications Medications (Trade) Dose Ordered Sig/Deborah Route PRN Reason Start Time Stop Time Status Last Admin Dose Admin Sodium Chloride 1,000 ml @ 1,000 mls/hr Q1H IV 11/19/21 04:30 11/19/21 05:29 DC 11/19/21 04:47 Fentanyl Citrate (Fentanyl 2ml Vial) 75 mcg 1X ONCE IVP 11/19/21 04:30 11/19/21 04:31 DC 11/19/21 04:47 Iohexol (Omnipaque 300 Mg/ml) 75 ml 1X ONCE IV 11/19/21 05:30 11/19/21 05:31 DC 11/19/21 05:44 Info (CONTRAST GIVEN -- Rx MONITORING) 1 each PRN DAILY PRN MC SEE COMMENTS 11/19/21 05:45 11/21/21 05:44 DC Potassium Chloride/Sodium Chloride 1,000 ml @ 100 mls/hr Q10H ONCE IV 11/19/21 05:45 11/19/21 15:44 DC 11/19/21 06:03 Magnesium Sulfate 50 ml @ 25 mls/hr 1X ONCE IV 11/19/21 06:15 11/19/21 08:14 DC 11/19/21 06:56 Vital Signs: Vital Signs Date Time Temp Pulse Resp B/P (MAP) Pulse Ox O2 Delivery O2 Flow Rate FiO2 11/19/21 04:22 98.4 104 18 151/106 (121) 100 Room Air 98.4 Vital Signs Date Time Temp Pulse Resp B/P (MAP) Pulse Ox O2 Delivery O2 Flow Rate FiO2 11/19/21 04:22 98.4 104 18 151/106 (121) 100 Room Air 98.4 EKG: EKG: EKG ordered and interpreted by myself 0427 hrs. as sinus tachycardia at 108 bpm, QTC 492 otherwise unremarkable intervals, no axis deviation, significant anterolateral artifact due to tremors from anxiety otherwise no appreciable STEMI Radiology/Procedures: Radiology/Procedures: EXAM: CT ABDOMEN/PELVIS WITH CONTRAST. HISTORY: Epigastric pain. TECHNIQUE: Computed tomography of the abdomen and pelvis was performed after the intravenous administration of iodinated contrast. One or more of the following individualized dose reduction techniques were utilized for this examination: 1. Automated exposure control. 2. Adjustment of the mA and/or kV according to patient size. 3. Use of iterative reconstruction technique. COMPARISON: 12/08/2020. FINDINGS: Lung windows through the visualized portions of the bases reveal no abnormality. Bone windows reveal no suspicious lesions. 2 dense objects within the sacral ala appear postprocedural. Correlate for such history. A heterogeneous 11.6 x 8.5 cm collection along the lateral aspect of the left kidney is consistent with a subacute perinephric hematoma. The left kidney appears to perfuse a slight delay consistent with a component of compression. No underlying lesion is identified. The right kidney is unremarkable. Diffuse hepatic steatosis is severe. The gallbladder is surgically absent. There is mild stranding about the pancreatic head. A fluid collection within the pancreatic head/body junction measures 12 mm. The pancreatic duct is not dilated. There is no biliary dilatation. The spleen and adrenal glands are unremarkable. There are no pathologically enlarged lymph nodes. The appendix is not inflamed. There is no small bowel obstruction. IMPRESSION: 1. 12 x 9 cm subacute appearing left perinephric hematoma. Correlate to exclude hypertension in the setting of renal compression. 2. Mild stranding about the pancreatic head is consistent with pancreatitis. A 12 mm fluid collection within the pancreatic head/body junction is consistent with a small pseudocyst. This is favored over a cystic neoplasm as it is new since 12/08/2020. 3. Severe diffuse hepatic steatosis. These findings were called to Dr. Levy by Star Westfall on 11/19/2021 at 6:09 AM. Electronically signed by: Lily Westfall MD (11/19/2021 6:16 AM) [id number] Course & Med Decision Making: Course & Med Decision Making ABCs unremarkable HPI physical exam comprehensive ER work-up concerning for acute on chronic pancreatitis with alcohol being etiology as patient later disclosed that she drink evening prior to arrival. Associated electrolyte imbalance appreciated a nd corrected while in ER Work-up also concerning for left-sided perinephric hematoma in absence of any trauma or other mechanism of injury. I contacted hospitalist and discussed need for admission, patient accepted under the care of Dr. Charity Noonan Disclaimer: Shaista Disclaimer: This electronic medical record was generated, in whole or in part, using a voice recognition dictation system. Departure Departure Impression: Primary Impression: Acute on chronic pancreatitis Additional Impressions: Perinephric hematoma Hypokalemia Hypomagnesemia Disposition: ADMITTED INPATIENT Admitting Physician: ISAI (DR BRYANT) Condition: STABLE Referrals: DAPHNE BLOOM (PCP) Scripts Ondansetron (ONDANSETRON ODT) 4 Mg Tab.rapdis 1 TAB PO PRN Q6-8HRS for ., #16 TAB Prov: EDWIN BENSON III DO 11/20/21 Fluoxetine Hcl (FLUOXETINE HCL) 20 Mg Capsule 20 MG PO DAILY for . for 30 Days, #30 CAP Prov: EDWIN BENSON III DO 11/20/21 FRANK LEVY DO Nov 19, 2021 04:13
[2021-11-19] MEDS ORDERED: fentaNYL PF VIAL 100 MCG/2 ML VIAL IVP ONE (04:30)
[2021-11-19] MEDS ORDERED: IV NORMAL SALINE 1000ML BAG 1,000 ML IV SCH (04:30)
[2021-11-19 04:43] LABS: BASO # 0.1 x10^3/uL (0.0-0.2); BASO % 1 % (0-3); EOS # 0.1 x10^3/uL (0.0-0.7); EOS % 1 % (0-3); HEMATOCRIT 38.3 % (36.0-47.0); HEMOGLOBIN 13.3 g/dL (12.0-15.5); LYMPH # 2.3 x10^3/uL (1.0-4.8); LYMPH % 39 % (24-48); MEAN CORPUSCULAR HEMOGLOBIN 35 pg (25-35); MEAN CORPUSCULAR HGB CONC 35 g/dL (31-37); MEAN CORPUSCULAR VOLUME 101 fL (79-100); MONO # 0.5 x10^3/uL (0.0-1.1); MONO % 9 % (0-9); NEUT # 2.9 x10^3/uL (1.8-7.7); NEUT % 49 % (31-73); PLATELET COUNT 149 x10^3/uL (140-400); RED BLOOD COUNT 3.78 x10^6/uL (3.50-5.40); RED CELL DISTRIBUTION WIDTH 15.9 % (11.5-14.5); WHITE BLOOD COUNT 5.8 x10^3/uL (4.0-11.0)
[2021-11-19 05:05] LABS: ALBUMIN 2.7 g/dL (3.4-5.0); ALBUMIN/GLOBULIN RATIO 0.6 (1.0-1.7); CREATININE 0.7 mg/dL (0.6-1.0); GFR 95.2; TOTAL BILIRUBIN 0.8 mg/dL (0.2-1.0); TOTAL PROTEIN 7.5 g/dL (6.4-8.2)
[2021-11-19 05:08] LABS: POTASSIUM 2.7 mmol/L (3.5-5.1)
[2021-11-19] MEDS ORDERED: IOHEXOL 300 MG/ML 100ML VIAL. IV ONE (05:30)
[2021-11-19] MEDS ORDERED: CONTRAST GIVEN. MC PRN (05:45)
[2021-11-19] MEDS ORDERED: POTASSIUM CL 40MEQ IN 0.9%NACL 1,000 ML IV ONE (05:45)
[2021-11-19] MEDS ORDERED: MAGNESIUM SULFATE 2GM 50 ML IV ONE (06:15)
--- NOTE | 2021-11-19 06:18 | RAD ---
EXAM: CT ABDOMEN/PELVIS WITH CONTRAST. HISTORY: Epigastric pain. TECHNIQUE: Computed tomography of the abdomen and pelvis was performed after the intravenous administ ration of iodinated contrast. One or more of the following individualized dose reduction techniques w ere utilized for this examination: 1. Automated exposure control. 2. Adjustment of the mA and/or kV according to patient size. 3. Use of iterative reconstruction technique. COMPARISON: 12/08/2020. FINDINGS: Lung windows through the visualized portions of the bases reveal no abnormality. Bone windo ws reveal no suspicious lesions. 2 dense objects within the sacral ala appear postprocedural. Correla te for such history. A heterogeneous 11.6 x 8.5 cm collection along the lateral aspect of the left kidney is consistent wi th a subacute perinephric hematoma. The left kidney appears to perfuse a slight delay consistent with a component of compression. No underlying lesion is identified. The right kidney is unremarkable. Diffuse hepatic steatosis is severe. The gallbladder is surgically absent. There is mild stranding ab out the pancreatic head. A fluid collection within the pancreatic head/body junction measures 12 mm. The pancreatic duct is not dilated. There is no biliary dilatation. The spleen and adrenal glands are unremarkable. There are no pathologically enlarged lymph nodes. The appendix is not inflamed. There is no small bowel obstruction. IMPRESSION: 1. 12 x 9 cm subacute appearing left perinephric hematoma. Correlate to exclude hypertension in the s etting of renal compression. 2. Mild stranding about the pancreatic head is consistent with pancreatitis. A 12 mm fluid collection within the pancreatic head/body junction is consistent with a small pseudocyst. This is favored over a cystic neoplasm as it is new since 12/08/2020. 3. Severe diffuse hepatic steatosis. These findings were called to Dr. Lund by Star Westfall on 11/19/2021 at 6:09 AM. Electronically signed by: Lily Westfall MD (11/19/2021 6:16 AM) [id number]
[2021-11-19] MEDS ORDERED: HYDROmorphone 2 MG/ML INJ. IVP ONE (06:30)
[2021-11-19 07:26] LABS: BILIRUBIN,URINE NEGATIVE (NEG); CLARITY,URINE CLEAR; COLOR,URINE YELLOW; NITRITE,URINE NEGATIVE (NEG); PROTEIN,URINE NEGATIVE (NEG-TRACE)
[2021-11-19 07:27] LABS: BARBITURATES NEG (NEG); BENZODIAZEPINES NEG (NEG); CANNABINOIDS NEG (NEG); COCAINE NEG (NEG); METHADONE NEG (NEG); OPIATES NEG (NEG); PHENCYCLIDINE NEG (NEG)
[2021-11-19 07:30] LABS: AMPHETAMINE/METHAMPHETAMINE NEG (NEG)
[2021-11-19 07:51] LABS: BACTERIA,URINE 0 /HPF (0-FEW); RBC,URINE OCC /HPF (0-2); WBC,URINE OCC /HPF (0-4)
[2021-11-19 08:30] VITALS: BP 148/112
--- NOTE | 2021-11-19 08:59 | EKG ---
[facility] [address] [place] [address] Test Date: 2021-11-19 Test Time: 04:18:31 Pat Name: JULIA GURROLA Department: Room: 2 Gender: F Academic Affairs Specialist: : [id number] Requested By: FRANK LEVY Order Number: [id number] Reading MD: Ananth French Measurements Intervals [place] Rate: 108 P: 66 MN: 158 QRS: 68 QRSD: 84 T: 79 QT: 364 QTc: 492 Interpretive Statements SINUS TACHYCARDIA NON SPECIFIC ST-T WAVE CHANGES Electronically Signed On 11-19-2021 14:44:58 WOOD PLANER by Ananth French
[2021-11-19] MEDS: FLUoxetine HCL 20 MG CAPSULE PO SCH (09:00)
[2021-11-19] MEDS: ONDANSETRON PF 4 MG/2 ML VIAL. IVP PRN ×3 (09:42→22:17)
--- NOTE | 2021-11-19 10:41 | NUR ---
SW following. Discussed with RN, pt from home, room air, NPO. Urology following. RN advised no SW needs at this time. SW will continue to follow.
[2021-11-19] MEDS: MORPHINE SULFATE 2 MG/ML INJ. IVP PRN ×5 (10:47→22:12)
[2021-11-19 11:00] VITALS: BP 151/110
--- NOTE | 2021-11-19 11:08 | NUR ---
Pt arrived on unit at approx 0830 by bed via ED staff. Pt's POC/orders reviewed, tele monitor applied. Pt with N/V, basin given to pt. Green bile emesis noted. Pt states pain is in the mid stomach area (epigastric). Order for nausea medication obtained, refer to EMAR for further details. Pain medication administered. Will assume care.
--- NOTE | 2021-11-19 12:07 | HP ---
DATE OF SERVICE: 11/19/2021 ADMIT DATE: 11/19/2021 CHIEF COMPLAINT: Chest pain and abdominal pain. HISTORY OF PRESENT ILLNESS: The patient is a pleasant 36-year-old female who states that she used to drink vodka, but now she drinks beer. She states she drinks too much beer yesterday. Now, she has presented to the ER with abdominal pain and chest pain. She has pancreatitis with a lipase level of 729. I discussed the case with ER physician. We are admitting the patient for pancreatitis protocol. PAST MEDICAL HISTORY: Alcoholism, tobacco abuse, anxiety, depression, hypertension, liver disease, PTSD, back surgery x3. ALLERGIES: None. FAMILY HISTORY: Alcoholism. SOCIAL HISTORY: She drinks and smokes. No drugs. MEDICATIONS: Reviewed, please refer to the MRAD. REVIEW OF SYSTEMS: GENERAL: No history of weight change, weakness or fevers. SKIN: No bruising, hair changes or rashes. EYES: No blurred, double or loss of vision. NOSE AND THROAT: No history of nosebleeds, hoarseness or sore throat. HEART: No history of palpitations, chest pain or shortness of breath on exertion. LUNGS: Denies cough, hemoptysis, wheezing or shortness of breath. GASTROINTESTINAL: Denies changes in appetite, nausea, vomiting, diarrhea or constipation. GENITOURINARY: No history of frequency, urgency, hesitancy or nocturia. NEUROLOGIC: Denies history of numbness, tingling, tremor or weakness. PSYCHIATRIC: No history of panic, anxiety or depression. ENDOCRINE: No history of heat or cold intolerance, polyuria or polydipsia. EXTREMITIES: Denies muscle weakness, joint pain, pain on walking or stiffness. PHYSICAL EXAMINATION: VITALS: Within normal limits and are stable. GENERAL: No apparent distress. Alert and oriented. HEENT: Normal cephalic atraumatic, external auditory canals are patent. EYES: Extraocular muscles are intact, pupils are equally round and reactive to light and accommodation. MUSCULOSKELETAL: Well developed, well nourished, good range of motion. ENDOCRINE: No thyromegaly was palpated. LYMPHATICS: No cervical chain or axillary nodes were noted. HEMATOPOIETIC: No bruising. NECK: Supple, no JVD, no thyromegaly was noted. LUNGS: Clear to auscultation in all lung [place] without rhonchi or wheezing. HEART: RRR, S1, S2 present. Peripheral pulses intact, no obvious murmurs were noted. ABDOMEN: Soft, nontender. Positive bowel sounds no organomegaly, normal bowel sounds. EXTREMITIES: Without any cyanosis, clubbing, or edema. Pedal pulses intact, Homans sign is negative. NEUROLOGIC: Normal speech, normal tone. A and O x3, moves all extremities, no obvious focal deficits. PSYCHIATRIC: Normal affect, normal mood. Stable. SKIN: No ulcerations or rashes, good skin turgor, no jaundice. VASCULAR: Good capillary refill, neurovascular bundle appears to be intact. LABORATORY DATA: Lipase is 729, potassium is 2.7. AST is high at 201, ALT is 70, alkaline phosphatase 215 and hCG level was 0. Alcohol level 130. ASSESSMENT AND PLAN: Pancreatitis, hypokalemia and alcoholism. The patient has been admitted. We will replace her potassium, n.p.o., IV fluids, trend labs, alcohol withdrawal protocol. PATRICIA DR: Phani TID: [id number]
--- NOTE | 2021-11-19 13:57 | PDOC2 ---
UROLOGY CONSULT DOS: DATE: 11/19/21 TIME: 13:50 Reason for Consult: perinephric hematoma HISTORY OF KIDNEY PROBLEMS: No HISTORY OF INCONTINENCE: No HISTORY FREQUENCY/NOCTURIA: No HISTORY OF CANCER: No Chief Complaint abdominal pain 36 year old female who presented to the ER with abdominal pain. Diagnosed with pancreatitis (lipase of 729). CT A/P done in the ER with incidental finding of 12x9 cm subacute left perinephric hematoma. Denies any issues in the past involving her kidneys. Denies any recent trauma, does endorse frequent vomiting. Hgb 13.3 ROS ROS: RESPIRATORY: Shortness of breath denies. Cough denies. UROLOGY: Denies blood in urine. Denies difficulty urinating Current Medications Current Medications Sodium Chloride 1,000 ml @ 1,000 mls/hr Q1H IV Last administered on 11/19/21at 04:47; Start 11/19/21 at 04:30; Stop 11/19/21 at 05:29; Status DC Fentanyl Citrate (Fentanyl 2ml Vial) 75 mcg 1X ONCE IVP Last administered on 11/19/21at 04:47; Start 11/19/21 at 04:30; Stop 11/19/21 at 04:31; Status DC Iohexol (Omnipaque 300 Mg/ml) 75 ml 1X ONCE IV Last administered on 11/19/21at 05:44; Start 11/19/21 at 05:30; Stop 11/19/21 at 05:31; Status DC Info (CONTRAST GIVEN -- Rx MONITORING) 1 each PRN DAILY PRN MC SEE COMMENTS; Start 11/19/21 at 05:45; Stop 11/21/21 at 05:44 Potassium Chloride/Sodium Chloride 1,000 ml @ 100 mls/hr Q10H ONCE IV Last administered on 11/19/21at 06:03; Start 11/19/21 at 05:45; Stop 11/19/21 at 15:44 Magnesium Sulfate 50 ml @ 25 mls/hr 1X ONCE IV Last administered on 11/19/21at 06:56; Start 11/19/21 at 06:15; Stop 11/19/21 at 08:14; Status DC Hydromorphone HCl (Dilaudid) 0.5 mg 1X ONCE IVP Last administered on 11/19/21at 06:56; Start 11/19/21 at 06:30; Stop 11/19/21 at 06:31; Status DC Morphine Sulfate (Morphine Sulfate) 4 mg PRN Q2HR PRN IVP MODERATE TO SEVERE PAIN Last administered on 11/19/21at 13:25; Start 11/19/21 at 07:15 Potassium Chloride/Dextrose/ Sod Cl 1,000 ml @ 100 mls/hr Q10H IV ; Start 11/19/21 at 07:15; Stop 11/20/21 at 13:14 Fluoxetine HCl (PROzac) 20 mg DAILY PO ; Start 11/19/21 at 09:00 Ondansetron HCl (Zofran) 4 mg PRN Q6HRS PRN IVP NAUSEA/VOMITING Last administered on 11/19/21at 09:42; Start 11/19/21 at 09:45 Active Scripts Active Norvasc (Amlodipine Besylate) 5 Mg Tablet 1 Tab PO DAILY Allergies: Coded Allergies: No Known Drug Allergies (Unverified , 08/10/21) Physical Examination PHYSICAL EXAMINATION: GENERAL: Gen. appearance: No acute distress. Mood/affect: Pleasant. HEENT: Head: Normocephalic, atraumatic. Airway Impairment: No. CHEST: Shape and expansion: Normal. Expansion: Normal. SKIN: General: Warm. Color: Good. GENITOURINARY:deferred NEUROLOGICAL: Mental status: Alert and oriented 3. Language: Normal. VITALS Vital Signs Date Time Temp Pulse Resp B/P (MAP) Pulse Ox O2 Delivery O2 Flow Rate FiO2 11/19/21 11:00 98.3 89 18 151/110 (124) 98 Room Air 98.3 Labs Laboratory Tests Test 11/19/21 04:25 11/19/21 07:10 White Blood Count 5.8 x10^3/uL (4.0-11.0) Red Blood Count 3.78 x10^6/uL (3.50-5.40) Hemoglobin 13.3 g/dL (12.0-15.5) Hematocrit 38.3 % (36.0-47.0) Mean Corpuscular Volume 101 fL (79-100) Mean Corpuscular Hemoglobin 35 pg (25-35) Mean Corpuscular Hemoglobin Concent 35 g/dL (31-37) Red Cell Distribution Width 15.9 % (11.5-14.5) Platelet Count 149 x10^3/uL (140-400) Neutrophils (%) (Auto) 49 % (31-73) Lymphocytes (%) (Auto) 39 % (24-48) Monocytes (%) (Auto) 9 % (0-9) Eosinophils (%) (Auto) 1 % (0-3) Basophils (%) (Auto) 1 % (0-3) Neutrophils # (Auto) 2.9 x10^3/uL (1.8-7.7) Lymphocytes # (Auto) 2.3 x10^3/uL (1.0-4.8) Monocytes # (Auto) 0.5 x10^3/uL (0.0-1.1) Eosinophils # (Auto) 0.1 x10^3/uL (0.0-0.7) Basophils # (Auto) 0.1 x10^3/uL (0.0-0.2) Maternal Serum HCG Beta Subunit < 1 mIU/mL (0-5) Sodium Level 138 mmol/L (136-145) Potassium Level 2.7 mmol/L (3.5-5.1) Chloride Level 99 mmol/L (98-107) Carbon Dioxide Level 27 mmol/L (21-32) Anion Gap 12 (6-14) Blood Urea Nitrogen 3 mg/dL (7-20) Creatinine 0.7 mg/dL (0.6-1.0) Estimated GFR (Cockcroft-Gault) 95.2 BUN/Creatinine Ratio 4 (6-20) Glucose Level 97 mg/dL (70-99) Calcium Level 8.0 mg/dL (8.5-10.1) Magnesium Level 1.7 mg/dL (1.8-2.4) Total Bilirubin 0.8 mg/dL (0.2-1.0) Aspartate Amino Transf (AST/SGOT) 201 U/L (15-37) Alanine Aminotransferase (ALT/SGPT) 70 U/L (14-59) Alkaline Phosphatase 215 U/L (46-116) Total Protein 7.5 g/dL (6.4-8.2) Albumin 2.7 g/dL (3.4-5.0) Albumin/Globulin Ratio 0.6 (1.0-1.7) Lipase 729 U/L (73-393) Ethyl Alcohol Level 130 mg/dL (0-10) Urine Collection Type Unknown Urine Color Yellow Urine Clarity Clear Urine pH 8.0 (<5.0-8.0) Urine Specific [place] >=1.030 (1.000-1.030) Urine Protein Negative mg/dL (NEG-TRACE) Urine Glucose (UA) Negative mg/dL (NEG) Urine Ketones (Stick) Negative mg/dL (NEG) Urine Blood Moderate (NEG) Urine Nitrite Negative (NEG) Urine Bilirubin Negative (NEG) Urine Urobilinogen Dipstick 1.0 mg/dL (0.2 mg/dL) Urine Leukocyte Esterase Negative (NEG) Urine RBC Occ /HPF (0-2) Urine WBC Occ /HPF (0-4) Urine Squamous Epithelial Cells Few /LPF Urine Bacteria 0 /HPF (0-FEW) Urine Opiates Screen Neg (NEG) Urine Methadone Screen Neg (NEG) Urine Barbiturates Neg (NEG) Urine Phencyclidine Screen Neg (NEG) Urine Amphetamine/Methamphetamine Neg (NEG) Urine Benzodiazepines Screen Neg (NEG) Urine Cocaine Screen Neg (NEG) Urine Cannabinoids Screen Neg (NEG) Urine Ethyl Alcohol Pos (NEG) Laboratory Tests Test 11/19/21 04:25 11/19/21 07:10 White Blood Count 5.8 x10^3/uL (4.0-11.0) Red Blood Count 3.78 x10^6/uL (3.50-5.40) Hemoglobin 13.3 g/dL (12.0-15.5) Hematocrit 38.3 % (36.0-47.0) Mean Corpuscular Volume 101 fL (79-100) Mean Corpuscular Hemoglobin 35 pg (25-35) Mean Corpuscular Hemoglobin Concent 35 g/dL (31-37) Red Cell Distribution Width 15.9 % (11.5-14.5) Platelet Count 149 x10^3/uL (140-400) Neutrophils (%) (Auto) 49 % (31-73) Lymphocytes (%) (Auto) 39 % (24-48) Monocytes (%) (Auto) 9 % (0-9) Eosinophils (%) (Auto) 1 % (0-3) Basophils (%) (Auto) 1 % (0-3) Neutrophils # (Auto) 2.9 x10^3/uL (1.8-7.7) Lymphocytes # (Auto) 2.3 x10^3/uL (1.0-4.8) Monocytes # (Auto) 0.5 x10^3/uL (0.0-1.1) Eosinophils # (Auto) 0.1 x10^3/uL (0.0-0.7) Basophils # (Auto) 0.1 x10^3/uL (0.0-0.2) Maternal Serum HCG Beta Subunit < 1 mIU/mL (0-5) Sodium Level 138 mmol/L (136-145) Potassium Level 2.7 mmol/L (3.5-5.1) Chloride Level 99 mmol/L (98-107) Carbon Dioxide Level 27 mmol/L (21-32) Anion Gap 12 (6-14) Blood Urea Nitrogen 3 mg/dL (7-20) Creatinine 0.7 mg/dL (0.6-1.0) Estimated GFR (Cockcroft-Gault) 95.2 BUN/Creatinine Ratio 4 (6-20) Glucose Level 97 mg/dL (70-99) Calcium Level 8.0 mg/dL (8.5-10.1) Magnesium Level 1.7 mg/dL (1.8-2.4) Total Bilirubin 0.8 mg/dL (0.2-1.0) Aspartate Amino Transf (AST/SGOT) 201 U/L (15-37) Alanine Aminotransferase (ALT/SGPT) 70 U/L (14-59) Alkaline Phosphatase 215 U/L (46-116) Total Protein 7.5 g/dL (6.4-8.2) Albumin 2.7 g/dL (3.4-5.0) Albumin/Globulin Ratio 0.6 (1.0-1.7) Lipase 729 U/L (73-393) Ethyl Alcohol Level 130 mg/dL (0-10) Urine Collection Type Unknown Urine Color Yellow Urine Clarity Clear Urine pH 8.0 (<5.0-8.0) Urine Specific [place] >=1.030 (1.000-1.030) Urine Protein Negative mg/dL (NEG-TRACE) Urine Glucose (UA) Negative mg/dL (NEG) Urine Ketones (Stick) Negative mg/dL (NEG) Urine Blood Moderate (NEG) Urine Nitrite Negative (NEG) Urine Bilirubin Negative (NEG) Urine Urobilinogen Dipstick 1.0 mg/dL (0.2 mg/dL) Urine Leukocyte Esterase Negative (NEG) Urine RBC Occ /HPF (0-2) Urine WBC Occ /HPF (0-4) Urine Squamous Epithelial Cells Few /LPF Urine Bacteria 0 /HPF (0-FEW) Urine Opiates Screen Neg (NEG) Urine Methadone Screen Neg (NEG) Urine Barbiturates Neg (NEG) Urine Phencyclidine Screen Neg (NEG) Urine Amphetamine/Methamphetamine Neg (NEG) Urine Benzodiazepines Screen Neg (NEG) Urine Cocaine Screen Neg (NEG) Urine Cannabinoids Screen Neg (NEG) Urine Ethyl Alcohol Pos (NEG) Assessment/Plan ---Left perinephric hematoma Hgb stable. Trend. Denies any trauma. Conservative treatment at this time. Will need f/u CT in 3 months to evaluate for any changes. D/w patient, agreeable. Can follow up with us at that time, or earlier if she needs to. D/w Dr. Mcnally. NELSON HOBSON APRN Nov 19, 2021 13:56
[2021-11-19 15:00] VITALS: BP 157/114
[2021-11-19] MEDS: POTASSIUM CL 20MEQ D5-0.45NACL 1,000 ML IV SCH ×2 (17:05→19:37)
[2021-11-19 23:04] VITALS: BP 161/118
[2021-11-20] MEDS: MORPHINE SULFATE 2 MG/ML INJ. IVP PRN ×8 (00:30→20:32)
[2021-11-20] MEDS: POTASSIUM CL 20MEQ D5-0.45NACL 1,000 ML IV SCH (02:45)
[2021-11-20 03:07] VITALS: BP 157/111
[2021-11-20 04:10] LABS: BASO % 1 % (0-3); EOS # 0.1 x10^3/uL (0.0-0.7); EOS % 2 % (0-3); HEMATOCRIT 29.4 % (36.0-47.0); HEMOGLOBIN 9.9 g/dL (12.0-15.5); LYMPH # 1.5 x10^3/uL (1.0-4.8); LYMPH % 37 % (24-48); MEAN CORPUSCULAR HEMOGLOBIN 35 pg (25-35); MEAN CORPUSCULAR HGB CONC 34 g/dL (31-37); MEAN CORPUSCULAR VOLUME 103 fL (79-100); MONO # 0.3 x10^3/uL (0.0-1.1); MONO % 9 % (0-9); NEUT # 2.1 x10^3/uL (1.8-7.7); NEUT % 52 % (31-73); PLATELET COUNT 100 x10^3/uL (140-400); RED BLOOD COUNT 2.85 x10^6/uL (3.50-5.40); RED CELL DISTRIBUTION WIDTH 15.5 % (11.5-14.5)
[2021-11-20 04:32] LABS: CALCIUM 7.4 mg/dL (8.5-10.1); CREATININE 0.6 mg/dL (0.6-1.0); DIRECT BILIRUBIN 0.4 mg/dL (0.0-0.2); GFR 113.8; POTASSIUM 3.6 mmol/L (3.5-5.1); TOTAL BILIRUBIN 0.7 mg/dL (0.2-1.0); TOTAL PROTEIN 5.7 g/dL (6.4-8.2)
[2021-11-20 07:00] VITALS: BP 149/111
[2021-11-20] MEDS: ONDANSETRON PF 4 MG/2 ML VIAL. IVP PRN ×2 (08:38→15:05)
[2021-11-20] MEDS: FLUoxetine HCL 20 MG CAPSULE PO SCH (09:00)
--- NOTE | 2021-11-20 10:38 | PDOC ---
[employer] PROGRESS NOTE Date of Service DOS: DATE: 11/20/21 TIME: 10:33 Chief Complaint Chief Complaint abdominal pain chest pain History of Present Illness History of Present Illness 11/20/2021: Patient seen and examined. Chart reviewed. Discussed with RN. Patient resting comfortably in bed, stating she feels better. Patient is eager to leave and wants to try eating. Patient has not been receiving her home medications due to being NPO. The patient is a pleasant 36-year-old female who states that she used to drink vodka, but now she drinks beer. She states she drinks too much beer yesterday. Now, she has presented to the ER with abdominal pain and chest pain. She has pancreatitis with a lipase level of 729. I discussed the case with ER physician. We are admitting the patient for pancreatitis protocol. Vitals/I&O Vitals/I&O: Vital Signs Date Time Temp Pulse Resp B/P (MAP) Pulse Ox O2 Delivery O2 Flow Rate FiO2 11/20/21 07:00 98.4 94 18 149/111 (124) 98 Room Air 98.4 I & O 11/19/21 11/19/21 11/20/21 15:00 23:00 07:00 Intake Total 1000 ml Output Total 20 ml 400 ml Balance -20 ml 1000 ml -400 ml Physical Exam General: Alert, Cooperative, No acute distress Labs Labs: Laboratory Tests Test 11/20/21 03:25 White Blood Count 4.0 x10^3/uL (4.0-11.0) Red Blood Count 2.85 x10^6/uL (3.50-5.40) Hemoglobin 9.9 g/dL (12.0-15.5) Hematocrit 29.4 % (36.0-47.0) Mean Corpuscular Volume 103 fL (79-100) Mean Corpuscular Hemoglobin 35 pg (25-35) Mean Corpuscular Hemoglobin Concent 34 g/dL (31-37) Red Cell Distribution Width 15.5 % (11.5-14.5) Platelet Count 100 x10^3/uL (140-400) Neutrophils (%) (Auto) 52 % (31-73) Lymphocytes (%) (Auto) 37 % (24-48) Monocytes (%) (Auto) 9 % (0-9) Eosinophils (%) (Auto) 2 % (0-3) Basophils (%) (Auto) 1 % (0-3) Neutrophils # (Auto) 2.1 x10^3/uL (1.8-7.7) Lymphocytes # (Auto) 1.5 x10^3/uL (1.0-4.8) Monocytes # (Auto) 0.3 x10^3/uL (0.0-1.1) Eosinophils # (Auto) 0.1 x10^3/uL (0.0-0.7) Basophils # (Auto) 0.0 x10^3/uL (0.0-0.2) Sodium Level 137 mmol/L (136-145) Potassium Level 3.6 mmol/L (3.5-5.1) Chloride Level 103 mmol/L (98-107) Carbon Dioxide Level 28 mmol/L (21-32) Anion Gap 6 (6-14) Blood Urea Nitrogen 4 mg/dL (7-20) Creatinine 0.6 mg/dL (0.6-1.0) Estimated GFR (Cockcroft-Gault) 113.8 Glucose Level 106 mg/dL (70-99) Calcium Level 7.4 mg/dL (8.5-10.1) Total Bilirubin 0.7 mg/dL (0.2-1.0) Direct Bilirubin 0.4 mg/dL (0.0-0.2) Aspartate Amino Transf (AST/SGOT) 103 U/L (15-37) Alanine Aminotransferase (ALT/SGPT) 47 U/L (14-59) Alkaline Phosphatase 160 U/L (46-116) Total Protein 5.7 g/dL (6.4-8.2) Albumin 2.0 g/dL (3.4-5.0) Lipase 407 U/L (73-393) Assessment and Plan Assessmemt and Plan Problems Medical Problems: (1) Acute on chronic pancreatitis Status: Acute (2) Hypokalemia Status: Acute (3) Hypomagnesemia Status: Acute (4) Perinephric hematoma Status: Acute ASSESSMENT: pancreatitis alcohol use disorder tobacco abuse anxiety depression HTN liver disease, hepatic steatosis PTSD Hx of back surgery PLAN: 1. Possible discharge to home this afternoon. 2. Check lipase level. 3. Advance diet. 4. Continue IV fluids. 5. Trend labs. 6. Continue CIWA protocol. 7. DVT prophylaxis 8. Encourage PO intake. 9. Encourage ambulation. 10. Continue home medications. 11. Full Code Comment Review of Relevant I have reviewed the following items jairo (where applicable) has been applied. Medications: Current Medications Medications (Trade) Dose Ordered Sig/Deborah Route PRN Reason Start Time Stop Time Status Last Admin Dose Admin Lorazepam (Ativan Inj) 2 mg PRN Q1HR PRN IV For CIWA 8-14 11/20/21 02:45 11/20/21 02:44 Justifications for Admission Other Justification EDWIN BENSON III DO Nov 20, 2021 10:38
[2021-11-20] MEDS ORDERED: FLUO20CA22 PO (10:59)
[2021-11-20 11:00] VITALS: BP 147/111
[2021-11-20] MEDS ORDERED: ONDA4TAB12 PO (11:01)
--- NOTE | 2021-11-20 12:25 | DS ---
DATE OF DISCHARGE: 11/20/2021 ADMISSION DIAGNOSES: Pancreatitis, alcohol abuse, tobacco abuse, anxiety, depression, hyperlipidemia, hepatic steatosis, posttraumatic stress disorder, history of back surgery. DISCHARGE DIAGNOSES: Resolving pancreatitis. HOSPITAL COURSE: The patient is a pleasant, middle-aged female who drinks too much. Basically, she presented with some abdominal pain, was noted to have pancreatitis with elevations of her lipase into the 700s. We also had an incidental finding of a perinephric hematoma. We admitted the patient, gave her alcohol withdrawal protocol. This morning, when I saw and examined her, she wants to go home. She wants to eat. Clinically, she looks great. Her lipase is down to 400. I hope to advance her diet and discharge. DISPOSITION: Home. ACTIVITY: As tolerated. DIET: Low sodium. DISCHARGE MEDICATIONS: Please see the MRAD. TOTAL TIME: Thirty-two minutes. JAMES/CODY/MAX DR: Phani TID: [id number]
--- NOTE | 2021-11-20 14:28 | PDOC ---
PROGRESS NOTE DATE OF SERVICE: DATE: 11/20/21 TIME: 14:27 CHIEF COMPLAINT: perinephric hematoma SUBJECTIVE: HPI: Resting in bed. Complaining of nausea. No urinary complaints. Problems: Problems Medical Problems: (1) Acute on chronic pancreatitis Status: Acute (2) Hypokalemia Status: Acute (3) Hypomagnesemia Status: Acute (4) Perinephric hematoma Status: Acute OBJECTIVE: Vital Signs: Vital Signs Date Time Temp Pulse Resp B/P (MAP) Pulse Ox O2 Delivery O2 Flow Rate FiO2 11/20/21 11:00 98.2 100 18 147/111 (123) 98 Room Air 98.2 11/20/21 08:00 Room Air 11/20/21 07:00 98.4 94 18 149/111 (124) 98 Room Air 98.4 11/20/21 03:07 98.3 86 18 157/111 (126) 98 Room Air 98.3 11/19/21 23:04 98.4 87 20 161/118 (132) 98 Room Air 98.4 11/19/21 20:10 Room Air 11/19/21 15:00 98.5 90 18 157/114 (128) 99 Room Air 98.5 I & O Intake and Output 11/20/21 06:59 Intake Total 1000 ml Output Total 420 ml Balance 580 ml Intake IV Total 1000 ml Output Emesis 420 ml # Voids 3 PHYSICAL EXAM: Physical Exam: General: Pleasant, no acute distress, well groomed Eyes: conjunctiva anicteric, eyes full range of motion ENT: moist oral mucosa, normal dentition Neck: Trachea midline, no masses Respiratory: unlabored breathing, not using accessory muscles, no crackles or wheezes Abdomen: nondistended, no hepatosplenomegaly, no masses Skin: no rashes or skin lesions on visualized skin Psych: normal mood, affect. Alert and oriented x 3. LABS: Laboratory Tests Test 11/19/21 04:25 11/19/21 07:10 11/20/21 03:25 White Blood Count 5.8 x10^3/uL (4.0-11.0) 4.0 x10^3/uL (4.0-11.0) Red Blood Count 3.78 x10^6/uL (3.50-5.40) 2.85 x10^6/uL (3.50-5.40) Hemoglobin 13.3 g/dL (12.0-15.5) 9.9 g/dL (12.0-15.5) Hematocrit 38.3 % (36.0-47.0) 29.4 % (36.0-47.0) Mean Corpuscular Volume 101 fL (79-100) 103 fL (79-100) Mean Corpuscular Hemoglobin 35 pg (25-35) 35 pg (25-35) Mean Corpuscular Hemoglobin Concent 35 g/dL (31-37) 34 g/dL (31-37) Red Cell Distribution Width 15.9 % (11.5-14.5) 15.5 % (11.5-14.5) Platelet Count 149 x10^3/uL (140-400) 100 x10^3/uL (140-400) Neutrophils (%) (Auto) 49 % (31-73) 52 % (31-73) Lymphocytes (%) (Auto) 39 % (24-48) 37 % (24-48) Monocytes (%) (Auto) 9 % (0-9) 9 % (0-9) Eosinophils (%) (Auto) 1 % (0-3) 2 % (0-3) Basophils (%) (Auto) 1 % (0-3) 1 % (0-3) Neutrophils # (Auto) 2.9 x10^3/uL (1.8-7.7) 2.1 x10^3/uL (1.8-7.7) Lymphocytes # (Auto) 2.3 x10^3/uL (1.0-4.8) 1.5 x10^3/uL (1.0-4.8) Monocytes # (Auto) 0.5 x10^3/uL (0.0-1.1) 0.3 x10^3/uL (0.0-1.1) Eosinophils # (Auto) 0.1 x10^3/uL (0.0-0.7) 0.1 x10^3/uL (0.0-0.7) Basophils # (Auto) 0.1 x10^3/uL (0.0-0.2) 0.0 x10^3/uL (0.0-0.2) Maternal Serum HCG Beta Subunit < 1 mIU/mL (0-5) Sodium Level 138 mmol/L (136-145) 137 mmol/L (136-145) Potassium Level 2.7 mmol/L (3.5-5.1) 3.6 mmol/L (3.5-5.1) Chloride Level 99 mmol/L (98-107) 103 mmol/L (98-107) Carbon Dioxide Level 27 mmol/L (21-32) 28 mmol/L (21-32) Anion Gap 12 (6-14) 6 (6-14) Blood Urea Nitrogen 3 mg/dL (7-20) 4 mg/dL (7-20) Creatinine 0.7 mg/dL (0.6-1.0) 0.6 mg/dL (0.6-1.0) Estimated GFR (Cockcroft-Gault) 95.2 113.8 BUN/Creatinine Ratio 4 (6-20) Glucose Level 97 mg/dL (70-99) 106 mg/dL (70-99) Calcium Level 8.0 mg/dL (8.5-10.1) 7.4 mg/dL (8.5-10.1) Magnesium Level 1.7 mg/dL (1.8-2.4) Total Bilirubin 0.8 mg/dL (0.2-1.0) 0.7 mg/dL (0.2-1.0) Aspartate Amino Transf (AST/SGOT) 201 U/L (15-37) 103 U/L (15-37) Alanine Aminotransferase (ALT/SGPT) 70 U/L (14-59) 47 U/L (14-59) Alkaline Phosphatase 215 U/L (46-116) 160 U/L (46-116) Total Protein 7.5 g/dL (6.4-8.2) 5.7 g/dL (6.4-8.2) Albumin 2.7 g/dL (3.4-5.0) 2.0 g/dL (3.4-5.0) Albumin/Globulin Ratio 0.6 (1.0-1.7) Lipase 729 U/L (73-393) 407 U/L (73-393) Ethyl Alcohol Level 130 mg/dL (0-10) Urine Collection Type Unknown Urine Color Yellow Urine Clarity Clear Urine pH 8.0 (<5.0-8.0) Urine Specific [place] >=1.030 (1.000-1.030) Urine Protein Negative mg/dL (NEG-TRACE) Urine Glucose (UA) Negative mg/dL (NEG) Urine Ketones (Stick) Negative mg/dL (NEG) Urine Blood Moderate (NEG) Urine Nitrite Negative (NEG) Urine Bilirubin Negative (NEG) Urine Urobilinogen Dipstick 1.0 mg/dL (0.2 mg/dL) Urine Leukocyte Esterase Negative (NEG) Urine RBC Occ /HPF (0-2) Urine WBC Occ /HPF (0-4) Urine Squamous Epithelial Cells Few /LPF Urine Bacteria 0 /HPF (0-FEW) Urine Opiates Screen Neg (NEG) Urine Methadone Screen Neg (NEG) Urine Barbiturates Neg (NEG) Urine Phencyclidine Screen Neg (NEG) Urine Amphetamine/Methamphetamine Neg (NEG) Urine Benzodiazepines Screen Neg (NEG) Urine Cocaine Screen Neg (NEG) Urine Cannabinoids Screen Neg (NEG) Urine Ethyl Alcohol Pos (NEG) Direct Bilirubin 0.4 mg/dL (0.0-0.2) MEDICATIONS: Current Medications Medications (Trade) Dose Ordered Sig/Deborah Start Time Stop Time Status Last Admin Dose Admin Fentanyl Citrate (Fentanyl 2ml Vial) 75 mcg 1X ONCE 11/19/21 04:30 11/19/21 04:31 DC 11/19/21 04:47 75 MCG Fluoxetine HCl (PROzac) 20 mg DAILY 11/19/21 09:00 Hydromorphone HCl (Dilaudid) 0.5 mg 1X ONCE 11/19/21 06:30 11/19/21 06:31 DC 11/19/21 06:56 0.5 MG Info (CONTRAST GIVEN -- Rx MONITORING) 1 each PRN DAILY PRN 11/19/21 05:45 11/21/21 05:44 Iohexol (Omnipaque 300 Mg/ml) 75 ml 1X ONCE 11/19/21 05:30 11/19/21 05:31 DC 11/19/21 05:44 75 ML Lorazepam (Ativan Inj) 4 mg PRN Q1HR PRN 11/20/21 02:45 Magnesium Sulfate 50 ml @ 25 mls/hr 1X ONCE 11/19/21 06:15 11/19/21 08:14 DC 11/19/21 06:56 25 MLS/HR Morphine Sulfate (Morphine Sulfate) 4 mg PRN Q2HR PRN 11/19/21 07:15 11/20/21 13:03 4 MG Ondansetron HCl (Zofran) 4 mg PRN Q6HRS PRN 11/19/21 09:45 11/20/21 08:38 4 MG Potassium Chloride/Dextrose/ Sod Cl 1,000 ml @ 100 mls/hr Q10H 11/19/21 07:15 11/20/21 13:14 DC 11/20/21 02:45 100 MLS/HR Potassium Chloride/Sodium Chloride 1,000 ml @ 100 mls/hr Q10H ONCE 11/19/21 05:45 11/19/21 15:44 DC 11/19/21 06:03 100 MLS/HR Sodium Chloride 1,000 ml @ 1,000 mls/hr Q1H 11/19/21 04:30 11/19/21 05:29 DC 11/19/21 04:47 1,000 MLS/HR ASSESSMENT & PLAN ---Left perinephric hematoma Hgb stable. Down to 9, most likely dilutional. Denies any trauma. Conservative treatment at this time. Will need f/u CT in 3 months to evaluate for any changes. D/w patient, agreeable. Can follow up with us at that time, or earlier if she needs to. Call with any urology concerns. D/w Dr. Mcnally. Problem List: Problems Medical Problems: (1) Acute on chronic pancreatitis Status: Acute (2) Hypokalemia Status: Acute (3) Hypomagnesemia Status: Acute (4) Perinephric hematoma Status: Acute NELSON HOBSON APRN Nov 20, 2021 14:28
[2021-11-20 15:00] VITALS: BP 156/112
--- NOTE | 2021-11-20 15:23 | NUR ---
patient vomited approximately 1200 cc green bile. zofran and morphine given. had ordered mashed potatoes and RN told her not to eat them but patient insisted. will monitor for further emesis.
[2021-11-20 19:00] VITALS: BP 171/117
[2021-11-20 23:52] VITALS: BP 159/115
[2021-11-21] MEDS: ONDANSETRON PF 4 MG/2 ML VIAL. IVP PRN ×2 (02:15→10:41)
[2021-11-21] MEDS: MORPHINE SULFATE 2 MG/ML INJ. IVP PRN ×4 (02:15→10:41)
[2021-11-21 03:00] VITALS: BP 138/105
[2021-11-21 07:00] VITALS: BP 144/99
[2021-11-21] MEDS: FLUoxetine HCL 20 MG CAPSULE PO SCH (08:24)
--- NOTE | 2021-11-21 11:25 | NUR ---
Discharge Note: JULIA GURROLA Discharge instructions and discharge home medications reviewed with Patient and a copy given. All questions have been answered and understanding verbalized. The following instructions and handouts were given: information about alcohol and pancreatitis, activity, diet, medications, follow up appointment. Discontinued lines and drains: IV line in right forearm removed, catheter tip intact. Patient discharged to home with self care with family member, wheelchair used for mobility to discharge vehicle.
== END 2021-11-21 11:25 | disposition home or self-care (01) | DRG 439 ==
LOC: ER 04:10 → 5 SOUTH 06:17
PROVIDERS: ADMIT Internal Medicine; ATTEND Internal Medicine
DX: K85.90 Acute pancreatitis without necrosis or infection, unspecified (principal); S37.012A Minor contusion of left kidney, initial encounter; E78.5 Hyperlipidemia, unspecified; E83.42 Hypomagnesemia; E87.6 Hypokalemia; F10.20 Alcohol dependence, uncomplicated; F32.A Depression, unspecified; F43.10 Post-traumatic stress disorder, unspecified; I10 Essential (primary) hypertension; K76.0 Fatty (change of) liver, not elsewhere classified; F17.200 Nicotine dependence, unspecified, uncomplicated; K86.1 Other chronic pancreatitis; X58.XXXA Exposure to other specified factors, initial encounter; Y93.89 Activity, other specified; Y92.89 Other specified places as the place of occurrence of the external cause; Y99.8 Other external cause status
CPT/HCPCS: 36415; 74177; 80048; 80053; 80076; 80307; 81001; 83690; 83735; 84702; 85025; 93005; 96361; 96365; 96366; 96368; 96375; G0480; J1170; J2060; J2270; J2405; J3010; J3475; J3480; J7030; Q9967; 99285-25; G0378

== ENCOUNTER 2021-12-05 08:35 | Inpatient (IN) | payer MEDICAID ==
[~2021-12-05] VITALS: Ht 162.6 cm; Wt 50.0 kg
[~2021-12-05 08:35] MED LIST changes: +FLUO20CA22 PO
[2021-12-05] MEDS ORDERED: IV NORMAL SALINE 1000ML BAG 1,000 ML IV ONE ×2 (09:00→11:15)
[2021-12-05] MEDS ORDERED: ONDANSETRON PF 4 MG/2 ML VIAL. IVP ONE (09:00)
[2021-12-05] MEDS ORDERED: HYDROmorphone 2 MG/ML INJ. IVP ONE ×3 (09:30→11:15)
[2021-12-05 09:32] LABS: CALCIUM 7.8 mg/dL (8.5-10.1); CREATININE 0.8 mg/dL (0.6-1.0); GFR 81.6; POTASSIUM 3.1 mmol/L (3.5-5.1)
[2021-12-05 09:38] LABS: ALBUMIN/GLOBULIN RATIO 0.5 (1.0-1.7); TOTAL BILIRUBIN 0.5 mg/dL (0.2-1.0); TOTAL PROTEIN 8.5 g/dL (6.4-8.2)
[2021-12-05 09:39] LABS: BASO # 0.1 x10^3/uL (0.0-0.2); BASO % 1 % (0-3); EOS % 1 % (0-3); HEMATOCRIT 39.9 % (36.0-47.0); HEMOGLOBIN 13.2 g/dL (12.0-15.5); LYMPH # 1.1 x10^3/uL (1.0-4.8); LYMPH % 16 % (24-48); MEAN CORPUSCULAR HEMOGLOBIN 33 pg (25-35); MEAN CORPUSCULAR HGB CONC 33 g/dL (31-37); MEAN CORPUSCULAR VOLUME 101 fL (79-100); MONO # 0.3 x10^3/uL (0.0-1.1); MONO % 4 % (0-9); NEUT # 5.1 x10^3/uL (1.8-7.7); NEUT % 78 % (31-73); PLATELET COUNT 243 x10^3/uL (140-400); RED BLOOD COUNT 3.95 x10^6/uL (3.50-5.40); RED CELL DISTRIBUTION WIDTH 15.8 % (11.5-14.5); WHITE BLOOD COUNT 6.6 x10^3/uL (4.0-11.0)
[2021-12-05] MEDS ORDERED: PROCHLORPERAZINE 10 MG/2 ML VIAL. IV ONE (10:00)
[2021-12-05 10:14] LABS: BILIRUBIN,URINE SMALL (NEG); CLARITY,URINE CLEAR; COLOR,URINE YELLOW; NITRITE,URINE NEGATIVE (NEG); PH,URINE 8.5 (<5.0-8.0); PROTEIN,URINE 30 mg/dL (NEG-TRACE); UROBILINOGEN,URINE 0.2 mg/dL (0.2 mg/dL)
[2021-12-05 10:31] LABS: BACTERIA,URINE FEW /HPF (0-FEW); RBC,URINE 0 /HPF (0-2)
[2021-12-05] MEDS: POTASSIUM CHLORIDE 10MEQ 100 ML IV SCH ×2 (11:21→13:48)
--- NOTE | 2021-12-05 11:21 | PHYS DOC ---
Past Medical History Past Medical History: Anxiety, Depression, Hypertension, Liver Disease, Other Additional Past Medical Histor: PTSD Past Surgical History: Cholecystectomy, Other Additional Past Surgical Histo: BACK SURGERY X 4 Smoking Status: Current Every Day Smoker Alcohol Use: Occasionally General Adult EDM: Chief Complaint: ABDOMINAL PAIN HPI: HPI: Patient is a 36 year old female with history of alcoholism, hepatic steatosis, previous pancreatitis who presents with "it is my pancreatitis." She started drinking again approximately 3 days ago. Has been drinking five 12 ounce beers per day. Has noted pain increasing since resumption of alcohol consumption. States the pain is epigastric. Sharp. Radiates to the back. Worse with food intake. Associated with nausea and vomiting No fevers or chills. Review of Systems: Review of Systems: Constitutional: Denies fever or chills. [] Eyes: Denies change in visual acuity. [] HENT: Denies nasal congestion or sore throat. [] Respiratory: Denies cough or shortness of breath. [] Cardiovascular: Denies chest pain or edema. [] GI: Reports abdominal pain, nausea, vomiting : Denies dysuria. [] Musculoskeletal: Denies back pain or joint pain. [] Integument: Denies rash. [] Neurologic: Denies headache, focal weakness or sensory changes. [] Psychiatric: Denies depression or anxiety. [] Heart Score: C/O Chest Pain: No Current Medications: Current Medications Medications (Trade) Dose Ordered Sig/Deborah Start Time Stop Time Status Last Admin Dose Admin Hydromorphone HCl (Dilaudid) 1 mg 1X ONCE 12/05/21 11:15 12/05/21 11:16 DC 12/05/21 11:09 1 MG Ondansetron HCl (Zofran) 4 mg 1X ONCE 12/05/21 09:00 12/05/21 09:01 DC 12/05/21 09:18 4 MG Potassium Chloride/Water 100 ml @ 100 mls/hr Q1H 12/05/21 11:30 12/05/21 13:29 Prochlorperazine Edisylate (Compazine) 10 mg 1X ONCE 12/05/21 10:00 12/05/21 10:01 DC 12/05/21 10:06 10 MG Sodium Chloride 1,000 ml @ 75 mls/hr 1X ONCE 12/05/21 11:15 12/06/21 00:34 Allergies: Allergies: Allergies Coded Allergies Type Severity Reaction Last Updated Verified No Known Drug Allergies 08/10/21 No Physical Exam: PE: Constitutional: Appears uncomfortable, shaking, clutching epigastrium HENT: Normocephalic, atraumatic, bilateral external ears normal, oropharynx moist, no oral exudates, nose normal. [] Eyes: PERRLA, EOMI, conjunctiva normal, no discharge. [] Neck: Normal range of motion, no tenderness, supple, no stridor. [] Cardiovascular:Heart rate regular rhythm, no murmur [] Lungs & Thorax: Bilateral breath sounds clear to auscultation [] Abdomen: Focally tender in epigastrium Back: No tenderness, no CVA tenderness. [] Extremities: No tenderness, no cyanosis, no clubbing, ROM intact, no edema. [] Neurologic: Alert and oriented X 3, normal motor function, normal sensory function, no focal deficits noted. [] Current Patient Data: Labs: Laboratory Tests Test 12/05/21 08:52 12/05/21 09:05 12/05/21 09:56 Urine Collection Type Unknown Urine Color Yellow Urine Clarity Clear Urine pH 8.5 (<5.0-8.0) Urine Specific [place] 1.020 (1.000-1.030) Urine Protein 30 mg/dL (NEG-TRACE) Urine Glucose (UA) Negative mg/dL (NEG) Urine Ketones (Stick) >=80 mg/dL (NEG) Urine Blood Negative (NEG) Urine Nitrite Negative (NEG) Urine Bilirubin Small (NEG) Urine Urobilinogen Dipstick 0.2 mg/dL (0.2 mg/dL) Urine Leukocyte Esterase Negative (NEG) Urine RBC 0 /HPF (0-2) Urine WBC 5-10 /HPF (0-4) Urine Squamous Epithelial Cells Many /LPF Urine Bacteria Few /HPF (0-FEW) Urine Mucus Mod /LPF White Blood Count 6.6 x10^3/uL (4.0-11.0) Red Blood Count 3.95 x10^6/uL (3.50-5.40) Hemoglobin 13.2 g/dL (12.0-15.5) Hematocrit 39.9 % (36.0-47.0) Mean Corpuscular Volume 101 fL (79-100) H Mean Corpuscular Hemoglobin 33 pg (25-35) Mean Corpuscular Hemoglobin Concent 33 g/dL (31-37) Red Cell Distribution Width 15.8 % (11.5-14.5) H Platelet Count 243 x10^3/uL (140-400) Neutrophils (%) (Auto) 78 % (31-73) H Lymphocytes (%) (Auto) 16 % (24-48) L Monocytes (%) (Auto) 4 % (0-9) Eosinophils (%) (Auto) 1 % (0-3) Basophils (%) (Auto) 1 % (0-3) Neutrophils # (Auto) 5.1 x10^3/uL (1.8-7.7) Lymphocytes # (Auto) 1.1 x10^3/uL (1.0-4.8) Monocytes # (Auto) 0.3 x10^3/uL (0.0-1.1) Eosinophils # (Auto) 0.0 x10^3/uL (0.0-0.7) Basophils # (Auto) 0.1 x10^3/uL (0.0-0.2) Sodium Level 136 mmol/L (136-145) Potassium Level 3.1 mmol/L (3.5-5.1) L Chloride Level 94 mmol/L (98-107) L Carbon Dioxide Level 25 mmol/L (21-32) Anion Gap 17 (6-14) H Blood Urea Nitrogen 5 mg/dL (7-20) L Creatinine 0.8 mg/dL (0.6-1.0) Estimated GFR (Cockcroft-Gault) 81.6 BUN/Creatinine Ratio 6 (6-20) Glucose Level 115 mg/dL (70-99) H Calcium Level 7.8 mg/dL (8.5-10.1) L Total Bilirubin 0.5 mg/dL (0.2-1.0) Aspartate Amino Transferase (AST) 175 U/L (15-37) H Alanine Aminotransferase (ALT) 70 U/L (14-59) H Alkaline Phosphatase 239 U/L (46-116) H Total Protein 8.5 g/dL (6.4-8.2) H Albumin 3.0 g/dL (3.4-5.0) L Albumin/Globulin Ratio 0.5 (1.0-1.7) L Lipase 172 U/L (73-393) POC Urine HCG, Qualitative Hcg negative (Negative) Laboratory Tests 12/05/21 09:05 Laboratory Tests 12/05/21 09:05 Vital Signs: Vital Signs Date Time Temp Pulse Resp B/P (MAP) Pulse Ox O2 Delivery O2 Flow Rate FiO2 12/05/21 11:09 20 99 Room Air 12/05/21 08:35 98.3 127 158/105 (122) 98.3 EKG: EKG: [] Radiology/Procedures: Radiology/Procedures: [] Course & Med Decision Making: Course & Med Decision Making Pertinent Labs and Imaging studies reviewed. (See chart for details) Patient a 36-year-old female with history of alcoholism, hepatic steatosis, previous bouts of pancreatitis who presents with classic pain for pancreatitis following resumption of alcohol intake 3 days ago. She is tender focally in the epigastrium on exam. Lipase is not elevated, however, I believe that she may be in the stages of chronic pancreatitis where she may not elevate her lipase during an acute on chronic flare. She has no fever or leukocytosis on labs. She has a recent CT, I have deferred further imaging at this time. She is received multiple doses of IV narcotics and her 2.5-hour ED stay, without resolution of pain. I do not feel that she is a candidate for outpatient treatment at this time. Patient will be admitted to hospitalist, Dr. Nash for further management. Sreedharon Disclaimer: Shaista Disclaimer: This electronic medical record was generated, in whole or in part, using a voice recognition dictation system. Departure Departure Impression: Primary Impression: Acute on chronic pancreatitis Disposition: ADMITTED INPATIENT Admitting Physician: ISAI (Nanette) Condition: STABLE Referrals: DAPHNE BLOOM (PCP) TWAN OLGUIN MD Dec 05, 2021 11:21
--- NOTE | 2021-12-05 11:25 | PDOC1 ---
History and Physical Date of Admission Date of Admission DATE: 12/05/21 TIME: 11:22 Identification/Chief Complaint Chief Complaint Abdominal pain, nausea vomiting Source Source: Chart review, Patient History of Present Illness History of Present Illness Ms Buckley is a 36yo female with PMHx pancreatitis, alcohol abuse, tobacco abuse, anxiety, depression, hyperlipidemia, hepatic steatosis, posttraumatic stress disorder, history of back surgery x3 who comes to ED complaining of epigastric abdominal pain nausea and vomiting for over a day. She has been drinking beer the last 3 days. She cannot hold anything down decided to come to ED for further treatment. Labs with WBC 6.6, Hb 13.2 with MCV of 101, platelets 243, NA 136, K3.1, BUN 5, CR 0.7, glucose 115, calcium 7.8, bilirubin 0.5, AST 175, ALT 70, alkaline phosphatase 239, albumin 3, lipase 172, urinalysis small bilirubin positive ketones otherwise bland, urine negative. Admitted for further care Past Medical History GI: Other (Pancreatitis) Psych: Anxiety, Depression Past Surgical History Past Surgical History: Cholecystectomy (08/10/2021) Family History Family History: Alcohol Abuse, High Cholestrol Current Medications Current Medications Current Medications Sodium Chloride 1,000 ml @ 1,000 mls/hr 1X ONCE IV Last administered on 12/05/21at 09:19; Start 12/05/21 at 09:00; Stop 12/05/21 at 09:59; Status DC Ondansetron HCl (Zofran) 4 mg 1X ONCE IVP Last administered on 12/05/21at 09:18; Start 12/05/21 at 09:00; Stop 12/05/21 at 09:01; Status DC Hydromorphone HCl (Dilaudid) 1 mg 1X ONCE IVP Last administered on 12/05/21at 09:26; Start 12/05/21 at 09:30; Stop 12/05/21 at 09:31; Status DC Prochlorperazine Edisylate (Compazine) 10 mg 1X ONCE IV Last administered on 12/05/21at 10:06; Start 12/05/21 at 10:00; Stop 12/05/21 at 10:01; Status DC Hydromorphone HCl (Dilaudid) 0.5 mg 1X ONCE IVP Last administered on 2/20/22at 10:07; Start 12/05/21 at 10:00; Stop 12/05/21 at 10:01; Status DC Hydromorphone HCl (Dilaudid) 1 mg 1X ONCE IVP Last administered on 12/05/21at 11:09; Start 12/05/21 at 11:15; Stop 12/05/21 at 11:16; Status DC Potassium Chloride/Water 100 ml @ 100 mls/hr Q1H IV ; Start 12/05/21 at 11:30; Stop 12/05/21 at 13:29 Sodium Chloride 1,000 ml @ 75 mls/hr 1X ONCE IV ; Start 12/05/21 at 11:15; Stop 12/06/21 at 00:34 Active Scripts Active Ondansetron Odt (Ondansetron) 4 Mg Tab.rapdis 1 Tab PO PRN Q6-8HRS Fluoxetine Hcl 20 Mg Capsule 20 Mg PO DAILY 30 Days Norvasc (Amlodipine Besylate) 5 Mg Tablet 1 Tab PO DAILY Allergies Allergies: Coded Allergies: No Known Drug Allergies (Unverified , 08/10/21) ROS General: YES: Fatigue, Malaise, Appetite; No: Chills, Night Sweats, Other PSYCHOLOGICAL ROS: YES: Anxiety; No: Behavioral Disorder, Concentration difficultie, Decreased libido, Depression, Disorientation, Hallucinations, Hostility, Irritablity, Memory difficulties, Mood Swings, Obsessive thoughts, Physical abuse, Sexual abuse, Sleep disturbances, Suicidal ideation, Other Eyes: No Blurry vision, No Decreased vision, No Double vision, No Dry eyes, No Excessive tearing, No Eye Pain, No Itchy Eyes, No Loss of vision, No Ph otophobia, No Scotomata, No Uses contacts, No Uses glasses, No Other HEENT: No: Heacaches, Visual Changes, Hearing change, Nasal congestion, Nasal discharge, Oral lesions, Sinus pain, Sore Throat, Epistaxis, Sneezing, Snoring, Tinnitus, Vertigo, Vocal changes, Other ALLERGY AND IMMUNOLOGY: No: Hives, Insect Bite Sensitivity, Itchy/Watery Eyes, Nasal Congestion, Post Nasal Drip, Seasonal Allergies, Other Hematological and Lymphatic: No: Bleeding Problems, Blood Clots, Blood Transfusions, Brusing, Night Sweats, Pallor, Swollen Lymph Nodes, Other ENDOCRINE: No: Breast Changes, Galactorrhea, Hair Pattern Changes, Hot Flashes, Malaise/lethargy, Mood Swings, Palpitations, Polydipsia/polyuria, Skin Changes, Temperature Intolerance, Unexpected Weight Changes, Other Breast: No New/Changing Breast Lumps, No Nipple changes, No Nipple discharge, No Other Respiratory: No: Cough, Hemoptysis, Orthopnea, Pleuritic Pain, Shortness of breath, SOB with excertion, Sputum Changes, Stridor, Tachypnea, Wheezing, Other Cardiovascular: No Chest Pain, No Palpitations, No Orthopnea, No Paroxysmal Noc. Dyspnea, No Edema, No Lt Headedness, No Other Gastrointestinal: Yes Nausea, Yes Vomiting, Yes Abdominal Pain; No Diarrhea, No Constipation, No Melena, No Hematochezia, No Other Genitourinary: No Dysuria, No Frequency, No Incontinence, No Hematuria, No Retention, No Discharge, No Urgency, No Pain, No Flank Pain, No Other, No , No , No , No , No , No , No Musculoskeletal: No Gait Disturbance, No Joint Pain, No Joint Stiffness, No Joint Swelling, No Muscle Pain, No Muscular Weakness, No Pain In:, No Swelling In:, No Other Neurological: No Behavorial Changes, No Bowel/Bladder ControlChng, No Confusion, No Dizziness, No Gait Disturbance, No Headaches, No Impaired Coord/balance, No Memory Loss, No Numbness/Tingling, No Seizures, No Speech Problems, No Tremors, No Visual Changes, No Weakness, No Other Skin: No Dry Skin, No Eczema, No Hair Changes, No Lumps, No Mole Changes, No Mottling, No Nail Changes, No Pruritus, No Rash, No Skin Lesion Changes, No Other, No Acne Physical Exam General: Alert, Oriented X3, Cooperative, moderate distress HEENT: Atraumatic, PERRLA, EOMI, Mucous membr. moist/pink Lungs: Clear to auscultation, Normal air movement Heart: S1S2, RRR, no thrills, no rubs, no gallops, no murmurs Abdomen: Normal bowel sounds, Soft, No hepatosplenomegaly, Other (Diffuse pain) Extremities: No clubbing, No cyanosis, No edema, Normal pulses, No tenderness/swelling Skin: No rashes, No breakdown, No significant lesion Neuro: Normal gait, Normal speech, Strength at 5/5 X4 ext, Normal tone, Sensation intact, Cranial nerves 3-12 NL, Reflexes 2+ Psych/Mental Status: Mental status NL, Mood NL Vitals Vitals Vital Signs Date Time Temp Pulse Resp B/P (MAP) Pulse Ox O2 Delivery O2 Flow Rate FiO2 12/05/21 11:09 20 99 Room Air 12/05/21 08:35 98.3 127 158/105 (122) 98.3 Labs Labs Laboratory Tests Test 12/05/21 08:52 12/05/21 09:05 12/05/21 09:56 Urine Collection Type Unknown Urine Color Yellow Urine Clarity Clear Urine pH 8.5 (<5.0-8.0) Urine Specific [place] 1.020 (1.000-1.030) Urine Protein 30 mg/dL (NEG-TRACE) Urine Glucose (UA) Negative mg/dL (NEG) Urine Ketones (Stick) >=80 mg/dL (NEG) Urine Blood Negative (NEG) Urine Nitrite Negative (NEG) Urine Bilirubin Small (NEG) Urine Urobilinogen Dipstick 0.2 mg/dL (0.2 mg/dL) Urine Leukocyte Esterase Negative (NEG) Urine RBC 0 /HPF (0-2) Urine WBC 5-10 /HPF (0-4) Urine Squamous Epithelial Cells Many /LPF Urine Bacteria Few /HPF (0-FEW) Urine Mucus Mod /LPF White Blood Count 6.6 x10^3/uL (4.0-11.0) Red Blood Count 3.95 x10^6/uL (3.50-5.40) Hemoglobin 13.2 g/dL (12.0-15.5) Hematocrit 39.9 % (36.0-47.0) Mean Corpuscular Volume 101 fL (79-100) Mean Corpuscular Hemoglobin 33 pg (25-35) Mean Corpuscular Hemoglobin Concent 33 g/dL (31-37) Red Cell Distribution Width 15.8 % (11.5-14.5) Platelet Count 243 x10^3/uL (140-400) Neutrophils (%) (Auto) 78 % (31-73) Lymphocytes (%) (Auto) 16 % (24-48) Monocytes (%) (Auto) 4 % (0-9) Eosinophils (%) (Auto) 1 % (0-3) Basophils (%) (Auto) 1 % (0-3) Neutrophils # (Auto) 5.1 x10^3/uL (1.8-7.7) Lymphocytes # (Auto) 1.1 x10^3/uL (1.0-4.8) Monocytes # (Auto) 0.3 x10^3/uL (0.0-1.1) Eosinophils # (Auto) 0.0 x10^3/uL (0.0-0.7) Basophils # (Auto) 0.1 x10^3/uL (0.0-0.2) Sodium Level 136 mmol/L (136-145) Potassium Level 3.1 mmol/L (3.5-5.1) Chloride Level 94 mmol/L (98-107) Carbon Dioxide Level 25 mmol/L (21-32) Anion Gap 17 (6-14) Blood Urea Nitrogen 5 mg/dL (7-20) Creatinine 0.8 mg/dL (0.6-1.0) Estimated GFR (Cockcroft-Gault) 81.6 BUN/Creatinine Ratio 6 (6-20) Glucose Level 115 mg/dL (70-99) Calcium Level 7.8 mg/dL (8.5-10.1) Total Bilirubin 0.5 mg/dL (0.2-1.0) Aspartate Amino Transf (AST/SGOT) 175 U/L (15-37) Alanine Aminotransferase (ALT/SGPT) 70 U/L (14-59) Alkaline Phosphatase 239 U/L (46-116) Total Protein 8.5 g/dL (6.4-8.2) Albumin 3.0 g/dL (3.4-5.0) Albumin/Globulin Ratio 0.5 (1.0-1.7) Lipase 172 U/L (73-393) Bedside Urine HCG, Qualitative Hcg negative (Negative) Laboratory Tests Test 12/05/21 08:52 12/05/21 09:05 12/05/21 09:56 Urine Collection Type Unknown Urine Color Yellow Urine Clarity Clear Urine pH 8.5 (<5.0-8.0) Urine Specific [place] 1.020 (1.000-1.030) Urine Protein 30 mg/dL (NEG-TRACE) Urine Glucose (UA) Negative mg/dL (NEG) Urine Ketones (Stick) >=80 mg/dL (NEG) Urine Blood Negative (NEG) Urine Nitrite Negative (NEG) Urine Bilirubin Small (NEG) Urine Urobilinogen Dipstick 0.2 mg/dL (0.2 mg/dL) Urine Leukocyte Esterase Negative (NEG) Urine RBC 0 /HPF (0-2) Urine WBC 5-10 /HPF (0-4) Urine Squamous Epithelial Cells Many /LPF Urine Bacteria Few /HPF (0-FEW) Urine Mucus Mod /LPF White Blood Count 6.6 x10^3/uL (4.0-11.0) Red Blood Count 3.95 x10^6/uL (3.50-5.40) Hemoglobin 13.2 g/dL (12.0-15.5) Hematocrit 39.9 % (36.0-47.0) Mean Corpuscular Volume 101 fL (79-100) Mean Corpuscular Hemoglobin 33 pg (25-35) Mean Corpuscular Hemoglobin Concent 33 g/dL (31-37) Red Cell Distribution Width 15.8 % (11.5-14.5) Platelet Count 243 x10^3/uL (140-400) Neutrophils (%) (Auto) 78 % (31-73) Lymphocytes (%) (Auto) 16 % (24-48) Monocytes (%) (Auto) 4 % (0-9) Eosinophils (%) (Auto) 1 % (0-3) Basophils (%) (Auto) 1 % (0-3) Neutrophils # (Auto) 5.1 x10^3/uL (1.8-7.7) Lymphocytes # (Auto) 1.1 x10^3/uL (1.0-4.8) Monocytes # (Auto) 0.3 x10^3/uL (0.0-1.1) Eosinophils # (Auto) 0.0 x10^3/uL (0.0-0.7) Basophils # (Auto) 0.1 x10^3/uL (0.0-0.2) Sodium Level 136 mmol/L (136-145) Potassium Level 3.1 mmol/L (3.5-5.1) Chloride Level 94 mmol/L (98-107) Carbon Dioxide Level 25 mmol/L (21-32) Anion Gap 17 (6-14) Blood Urea Nitrogen 5 mg/dL (7-20) Creatinine 0.8 mg/dL (0.6-1.0) Estimated GFR (Cockcroft-Gault) 81.6 BUN/Creatinine Ratio 6 (6-20) Glucose Level 115 mg/dL (70-99) Calcium Level 7.8 mg/dL (8.5-10.1) Total Bilirubin 0.5 mg/dL (0.2-1.0) Aspartate Amino Transf (AST/SGOT) 175 U/L (15-37) Alanine Aminotransferase (ALT/SGPT) 70 U/L (14-59) Alkaline Phosphatase 239 U/L (46-116) Total Protein 8.5 g/dL (6.4-8.2) Albumin 3.0 g/dL (3.4-5.0) Albumin/Globulin Ratio 0.5 (1.0-1.7) Lipase 172 U/L (73-393) Bedside Urine HCG, Qualitative Hcg negative (Negative) VTE Prophylaxis Ordered VTE Prophylaxis Devices: No VTE Pharmacological Prophylaxi: Yes Assessment/Plan Assessment/Plan Intractable abdominal pain - likely chronic pancreatitis. NPO, IVF, IV pain control q3hrs. Place nitropaste for HTN related to pancreatitis. Alcohol use disorder - will place on CIWA, counseled on cessation Transaminitis - likely alcoholic hepatitis. Will monitor Hypokalemia - likely GI losses, will replace Left perinephric hematoma - will repeat CT given low lipase, recurrence of pain symptoms, possibly worsening bleed Tobacco abuse - nicotine replacement therapy. Counseled on cessation PTSD with anxiety, depression - NPO H/o back surgery x3. FEN - NPO PPX - lovenox FULL CODE Dispo - inpatient Justifications for Admission Other Justification ALYSA PEREZ MD Dec 05, 2021 11:25
[2021-12-05] MEDS: ENOXAPARIN 40 MG/0.4 ML SYRINGE. SQ SCH (11:30)
[2021-12-05] MEDS ORDERED: ACETAMINOPHEN 325 MG TABLET. PO PRN (11:30)
[2021-12-05] MEDS: ONDANSETRON PF 4 MG/2 ML VIAL. IVP PRN ×2 (12:01→23:01)
[2021-12-05 12:50] VITALS: BP 183/117
[2021-12-05] MEDS: hydrALAZINE 20 MG/ML VIAL. IVP PRN (13:45)
[2021-12-05 14:00] VITALS: BP 166/116
[2021-12-05 15:00] VITALS: BP 166/116
[2021-12-05] MEDS ORDERED: MULTIVIT INFUSN,ADULT 4,VIT K 10 ML, THIAMINE INJ 100 MG, FOLIC ACID INJ 1 MG in IV NOR... IV SCH (15:00)
[2021-12-05] MEDS: POTASSIUM CL 20MEQ D5-0.45NACL 1,000 ML IV SCH ×2 (15:08→19:30)
[2021-12-05] MEDS ORDERED: NITROGLYCERIN OINT 1 GM PACKET. TP PRN (16:00)
[2021-12-05] MEDS: NICOTINE 14MG PATCH. TD SCH (16:30)
[2021-12-05] MEDS: NITROGLYCERIN OINT 1 GM PACKET. TP SCH (17:31)
[2021-12-05] MEDS: HYDROmorphone 2 MG/ML INJ. IVP PRN ×2 (17:51→23:00)
--- NOTE | 2021-12-05 18:01 | NUR ---
pt resting with eyes closed for 1800 CIWA
[2021-12-05 19:00] VITALS: BP 147/96
[2021-12-05 23:00] VITALS: BP 144/100
[2021-12-06] MEDS: NITROGLYCERIN OINT 1 GM PACKET. TP SCH ×4 (00:36→16:40)
[2021-12-06] MEDS: HYDROmorphone 2 MG/ML INJ. IVP PRN ×7 (02:04→20:48)
[2021-12-06 03:00] VITALS: BP 156/96
[2021-12-06] MEDS: ONDANSETRON PF 4 MG/2 ML VIAL. IVP PRN ×3 (04:09→17:40)
[2021-12-06 07:00] VITALS: BP 149/104
[2021-12-06] MEDS ORDERED: CONTRAST GIVEN. MC PRN (07:45)
[2021-12-06] MEDS: IOHEXOL 300 MG/ML 100ML VIAL. IV ONE (07:45)
[2021-12-06 07:46] LABS: ALBUMIN 2.1 g/dL (3.4-5.0); ALBUMIN/GLOBULIN RATIO 0.6 (1.0-1.7); CALCIUM 7.2 mg/dL (8.5-10.1); CREATININE 0.6 mg/dL (0.6-1.0); GFR 113.8; POTASSIUM 3.6 mmol/L (3.5-5.1); TOTAL BILIRUBIN 0.6 mg/dL (0.2-1.0); TOTAL PROTEIN 5.8 g/dL (6.4-8.2)
[2021-12-06 08:01] LABS: HEMATOCRIT 30.1 % (36.0-47.0); HEMOGLOBIN 10.1 g/dL (12.0-15.5); RED BLOOD COUNT 2.96 x10^6/uL (3.50-5.40); WHITE BLOOD COUNT 4.2 x10^3/uL (4.0-11.0)
[2021-12-06] MEDS: ENOXAPARIN 40 MG/0.4 ML SYRINGE. SQ SCH (08:18)
[2021-12-06] MEDS: NICOTINE 14MG PATCH. TD SCH (08:18)
[2021-12-06] MEDS: POTASSIUM CL 20MEQ D5-0.45NACL 1,000 ML IV SCH ×3 (08:19→16:38)
--- NOTE | 2021-12-06 10:03 | RAD ---
INDICATION: Reason: Perinephric hematoma follow up, worsening abdominal pain / Spl. Instructions: IV omni 300 75 mls / History: COMPARISON: November 19, 2021 TECHNIQUE: Axial CT images were obtained through the abdomen and pelvis with intravenous contrast. One or more of the following individualized dose reduction techniques were utilized for this examinat ion: 1. Automated exposure control; 2. Adjustment of the mA and/or kV according to patient size; 3 . Use of iterative reconstruction technique. FINDINGS: Vascular: No abdominal aortic aneurysm. Hepatobiliary: Liver is diffusely low density which can be seen with fatty infiltration. Prominent in size. Pancreas: Low-density lesion is again seen at the pancreatic body measuring 13 mm. There is some hazi ness of the fat adjacent to the pancreas but overall appears slightly decreased from prior. Spleen: Spleen unremarkable. Renal/Bladder: Repeat demonstration of large fluid collection involving the left kidney with rim enha ncement and thick wall. This appears lower density than on prior examination. Currently measures 102 x 68 mm and was previously 115 x 73 mm. There is some adjacent high density fluid adjacent to the lef t kidney as well which could be from a small amount of the blood tracking into the region. This was a lso seen on prior. There is again some mass effect on the left kidney. Prominent enhancement of the u rothelium on the left. Mild prominence the wall of the partially distended urinary bladder. Gastrointestinal: No periappendiceal inflammatory changes. No dilated loops of bowel to suggest obstr uction. Degenerative changes of spine. IMPRESSION: * Repeat demonstration of a large subcapsular fluid collection at the left kidney with this collect ion appearing lower density than on prior which could be from evolution of the previously identified hemorrhage. The overall size of the hemorrhage is slightly decreased from prior. Cannot assess for george perinfection on CT and would correlate with infectious symptoms. * Prominent enhancement of the urothelium on the left. Could be inflammatory in nature with infectio us etiology such as ureteritis another consideration. There is also some mild prominence the wall of the urinary bladder which could be from lack of distention with cystitis not excluded. * Repeat demonstration of low-density lesion at the pancreas again while most common causes would be pseudocyst but follow-up could be obtained to ensure appropriate resolution. Cystic neoplasm would b e less likely since this was not present in November 2020 Electronically signed by: Pelon Sexton MD (12/06/2021 10:01 AM) [id number]
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
[2021-12-06 11:00] VITALS: BP 157/108
--- NOTE | 2021-12-06 11:30 | NUR ---
SW following. Discussed with RN, pt from home, room air, NPO. RN advised no SW needs at this time. SW will continue to follow.
[2021-12-06 15:00] VITALS: BP 164/116
[2021-12-06 15:31] VITALS: BP 155/108
[2021-12-06 19:00] VITALS: BP 158/114
[2021-12-06] MEDS ORDERED: HALOPERIDOL LACTATE 5 MG/ML VIAL. IVP ONE (22:00)
[2021-12-07] MEDS: POTASSIUM CL 20MEQ D5-0.45NACL 1,000 ML IV SCH ×3 (02:00→11:28)
[2021-12-07 03:00] VITALS: BP 141/90
[2021-12-07] MEDS: NITROGLYCERIN OINT 1 GM PACKET. TP SCH ×4 (05:41→14:57)
[2021-12-07] MEDS: HYDROmorphone 2 MG/ML INJ. IVP PRN ×4 (05:47→22:22)
[2021-12-07 07:15] VITALS: BP 130/88
[2021-12-07] MEDS: ENOXAPARIN 40 MG/0.4 ML SYRINGE. SQ SCH (08:14)
[2021-12-07] MEDS: NICOTINE 14MG PATCH. TD SCH (08:14)
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
[2021-12-07 10:51] VITALS: BP 149/88
--- NOTE | 2021-12-07 14:15 | NUR ---
SW following. Discussed with RN, pt from home, room air, clear liquid diet. Pt was given large amount of Ativan last night, was apparently hallucinating. Possible discharge tomorrow (12/08/21). SW will continue to follow.
[2021-12-07 14:41] VITALS: BP 134/90
[2021-12-07] MEDS ORDERED: ZIPRASIDONE IM 20 MG VIAL. IM PRN (18:00)
[2021-12-07 19:20] VITALS: BP 159/118
--- NOTE | 2021-12-07 21:00 | NUR ---
Patient became very agitated with staff, hallucinating that daughter was in her room and stated she needed to get her ready for school. Patient reoriented multiple times to situation and place. Became increasingly agitated. Dr. Olivo notified.
[2021-12-07] MEDS: ONDANSETRON PF 4 MG/2 ML VIAL. IVP PRN (21:31)
[2021-12-07] MEDS ORDERED: diphenhydrAMINE 50 MG/ML VIAL IVP PRN (21:45)
[2021-12-07] MEDS: fentaNYL PF VIAL 100 MCG/2 ML VIAL IVP PRN (22:11)
[2021-12-07 23:12] VITALS: BP 161/115
[2021-12-08] MEDS: POTASSIUM CL 20MEQ D5-0.45NACL 1,000 ML IV SCH ×3 (02:00→17:03)
[2021-12-08] MEDS: NITROGLYCERIN OINT 1 GM PACKET. TP SCH ×4 (06:22→17:03)
[2021-12-08 07:00] VITALS: BP 147/104
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
[2021-12-08] MEDS: ENOXAPARIN 40 MG/0.4 ML SYRINGE. SQ SCH (09:00)
[2021-12-08] MEDS: NICOTINE 14MG PATCH. TD SCH (09:00)
[2021-12-08] MEDS: ONDANSETRON PF 4 MG/2 ML VIAL. IVP PRN ×2 (09:52→19:35)
[2021-12-08] MEDS: HYDROmorphone 2 MG/ML INJ. IVP PRN ×4 (09:57→21:37)
[2021-12-08 11:00] VITALS: BP 143/100
[2021-12-08] MEDS: fentaNYL PF VIAL 100 MCG/2 ML VIAL IVP PRN (13:25)
[2021-12-08 15:00] VITALS: BP 133/97
[2021-12-08 19:25] VITALS: BP 153/115
[2021-12-08] MEDS: hydrALAZINE 20 MG/ML VIAL. IVP PRN (19:37)
[2021-12-08 23:16] VITALS: BP 167/80
[2021-12-09] MEDS: POTASSIUM CL 20MEQ D5-0.45NACL 1,000 ML IV SCH ×2 (00:32→08:33)
[2021-12-09] MEDS: HYDROmorphone 2 MG/ML INJ. IVP PRN ×3 (00:33→09:04)
[2021-12-09] MEDS: NITROGLYCERIN OINT 1 GM PACKET. TP SCH ×2 (00:34→05:57)
[2021-12-09 07:00] VITALS: BP 150/111
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
[2021-12-09] MEDS: ENOXAPARIN 40 MG/0.4 ML SYRINGE. SQ SCH (09:02)
[2021-12-09] MEDS: NICOTINE 14MG PATCH. TD SCH (09:04)
[2021-12-09 11:00] VITALS: BP 166/116
--- NOTE | 2021-12-09 12:22 | DS ---
DATE OF DISCHARGE: 12/09/2021 ADMISSION DIAGNOSIS: Alcoholic pancreatitis. DISCHARGE DIAGNOSES: Resolving alcoholic pancreatitis, transaminitis, hypokalemia, left perinephric hematoma, tobacco abuse, post-traumatic stress disorder, and back surgery x 3. HOSPITAL COURSE: The patient is a pleasant, middle-aged female who drinks too much. She presented with alcohol withdrawal and pancreatitis. We gave her alcohol withdrawal protocol and fluids and pain meds. Today, I saw and examined her. She is at her baseline and wants to go home. We plan to discharge. DISPOSITION: Home. ACTIVITY: As tolerated. DIET: Low sodium. DISCHARGE MEDICATIONS: Please see MRAD. TOTAL TIME: 34 minutes. JAMES/GEORGE DR: Phani TID: [id number]
--- NOTE | 2021-12-09 12:23 | NUR ---
Discharge Note: JULIA GURROLA [address] [place] [address] Discharge instructions and discharge home medications reviewed with Patient and a copy given. All questions have been answered and understanding verbalized. The following instructions and handouts were given: Diet, activity, medication list and follow up instructions provided to patient. Discontinued lines and drains: Peripheral IVs discontinued and catheters intact. Patient discharged to Home or Self Care with Family Member via Wheelchair
== END 2021-12-09 11:50 | disposition home or self-care (01) | DRG 439 ==
LOC: ER 08:35 → 4 NORTH 11:27
PROVIDERS: ADMIT Internal Medicine; ATTEND Internal Medicine
DX: K85.20 Alcohol induced acute pancreatitis without necrosis or infection (principal); S37.012A Minor contusion of left kidney, initial encounter; F10.139 Alcohol abuse with withdrawal, unspecified; E87.6 Hypokalemia; E78.5 Hyperlipidemia, unspecified; F43.10 Post-traumatic stress disorder, unspecified; I10 Essential (primary) hypertension; K86.1 Other chronic pancreatitis; F17.200 Nicotine dependence, unspecified, uncomplicated; K76.0 Fatty (change of) liver, not elsewhere classified; X58.XXXA Exposure to other specified factors, initial encounter; Y93.89 Activity, other specified; Y92.89 Other specified places as the place of occurrence of the external cause; Y99.8 Other external cause status; Z90.49 Acquired absence of other specified parts of digestive tract; Z71.6 Tobacco abuse counseling; Y90.9 Presence of alcohol in blood, level not specified; F41.9 Anxiety disorder, unspecified; F32.A Depression, unspecified
CPT/HCPCS: 36415; 74177; 80053; 81001; 81025; 83690; 85025; 85027; 87086; 96361; 96374; 96375; 96376; J0360; J0780; J1170; J1200; J1630; J1650; J2060; J2405; J3010; J3411; J3480; J3486; J3490; J7030; Q9967; 99285-25; G0378

== ENCOUNTER 2021-12-17 02:51 | Inpatient (IN) | payer MEDICAID ==
[~2021-12-17] VITALS: Ht 165.1 cm; Wt 52.5 kg
[2021-12-17 02:30] VITALS: BP 148/89
[2021-12-17] MEDS ORDERED: PIP/TAZO PER PHARMACY MC PRN (03:15)
[2021-12-17] MEDS: ONDANSETRON PF 4 MG/2 ML VIAL. IVP PRN (04:01)
[2021-12-17] MEDS: HYDROmorphone 2 MG/ML INJ. IVP PRN ×5 (04:07→23:20)
[2021-12-17] MEDS: IV NORMAL SALINE 1000ML BAG 1,000 ML IV SCH ×4 (04:09→23:15)
--- NOTE | 2021-12-17 04:34 | NUR ---
Pt claimed she doesn't take medicines at home
[2021-12-17] MEDS ORDERED: PROCHLORPERAZINE 10 MG/2 ML VIAL. IV PRN (04:45)
[2021-12-17] MEDS: VANCOMYCIN PER PHARMACY MC PRN ×2 (05:40→12:52)
--- NOTE | 2021-12-17 05:41 | NUR ---
Pharmacy Vancomycin Dosing Note S:Consulted to monitor and dose vancomycin started 12/17/21. O:JULIA GURROLA is a 36 year old F with Abscess PERINEPHRIC ABSCESS VS PANCREATIC PSEUDOCYST . Height: 5 feet, 5 inches Weight: 52.5 kg [place] Body Weight: 57.00 Adjusted Body Weight: 55.20 Dosing Weight: Actual Other Antibiotics: ZOSYN LABS: Last BUN: 4 Last Creatinine: 0.5 Creatinine Clearance: >120 mL/min Last WBC: 9.6 Last Procalcitonin: Tmax (past 24 hours): 98.3 Microbiology: I/O: Drug Levels: Last level: on at Last dose given 12/17/21 at 0030 Vancomycin Dosing: Loading Dose: 1250 mg x1 Dosing Weight: Actual Target Trough: 10-20 A: Based on: WEIGHT, RENAL FUNCTION, P: 1. INITIATE Vancomycin 750 mg IV q8h AFTER 1250 MG LOADING DOSE 2. Follow up Trough level on 12/18/21 at 0001 3. Pharmacy will continue to monitor, follow and adjust therapy as needed. RADHA ALEXANDER [facility], 12/17/21 0541
[2021-12-17] MEDS: PIPERACILLIN/TAZOBACTAM 3.375 GM in IV NORMAL SALINE 50ML 50 ML IV SCH ×4 (05:50→23:20)
[2021-12-17 07:00] VITALS: BP 141/101
[2021-12-17] MEDS ORDERED: BISACODYL 10 MG SUPP.RECT. PR PRN (07:15)
[2021-12-17] MEDS ORDERED: ACETAMINOPHEN 650 MG SUPP.RECT. PR PRN (07:15)
--- NOTE | 2021-12-17 07:23 | PDOC1 ---
History and Physical Date of Admission Date of Admission DATE: 12/17/21 TIME: 07:15 Identification/Chief Complaint Chief Complaint Abdominal pain, fever Source Source: Chart review, Patient History of Present Illness History of Present Illness Ms Buckley is a 36-year-old female w/ PMHx alcohol abuse, tobacco abuse, anxiety, depression, hyperlipidemia, hepatic steatosis, posttraumatic stress disorder, history of back surgery x3 , recurrent pancreatitis who presents to the ED at [facility] in [place], [place] with generalized abdominal pain. Patient states that pain started on 12/15/2021 at night at 11 PM. Patient states she was running a fever and also vomiting. She continues to drink alcohol. Reports taking ibuprofen and Tylenol for discomfort with no relief. Labs with WBC 9.6, Hb 11.8 with MCV 102, platelets 522, NA 139, K3.1, BUN 4, CR 0.5, glucose 107, calcium 8.8, magnesium 1.7, bilirubin 0.3, AST 67, ALT 42, alkaline phosphatase 158, albumin 2.9, lipase 216, urine drug screen positive for ethyl alcohol and ethanol level 12/16/21 at 2013 was 238 mg/dL, rapid influenza and rapid COVID-19 negative. EKG sinus tachycardia rate 102 bpm otherwise normal axis and intervals, QTC 479 CT abdomen reveals a large subcapsular collection at the lateral aspect of the left kidney with thickened peripheral rim. The collection measures 9.1 x 5.9 x 8.1 cm and flattens the lateral cortex Transferred to [place] for higher level of care. Past Medical History GI: Other Psych: Anxiety, Depression Past Surgical History Past Surgical History: Cholecystectomy Family History Family History: Alcohol Abuse, High Cholestrol Social History Smoke: 1 pack per day ALCOHOL: heavy Drugs: None Current Medications Current Medications Current Medications Hydromorphone HCl (Dilaudid) 1 mg PRN Q4HRS PRN IVP PAIN Last administered on 12/17/21at 04:07; Start 12/17/21 at 03:15 Ondansetron HCl (Zofran) 4 mg PRN Q4HRS PRN IVP NAUSEA/VOMITING 1ST CHOICE Last administered on 12/17/21at 04:01; Start 12/17/21 at 03:15 Vancomycin HCl (Vanco Per Pharmacy) 1 each PRN DAILY PRN MC SEE COMMENTS Last administered on 12/17/21at 05:40; Start 12/17/21 at 03:15 Piperacillin Sod/ Tazobactam Sod (Zosyn Per Pharmacy) 1 each PRN DAILY PRN MC SEE COMMENTS; Start 12/17/21 at 03:15 Sodium Chloride 1,000 ml @ 150 mls/hr Q6H40M IV Last administered on 12/17/21at 04:09; Start 12/17/21 at 03:15 Lorazepam (Ativan Inj) 2 mg PRN Q1HR PRN IV For CIWA 8-14 Last administered on 12/17/21at 04:01; Start 12/17/21 at 03:15 Lorazepam (Ativan Inj) 4 mg PRN Q1HR PRN IV For CIWA 15 or greater; Start 12/17/21 at 03:15 Nicotine (Nicoderm Cq 21mg) 1 patch DAILY TD ; Start 12/17/21 at 09:00 Piperacillin Sod/ Tazobactam Sod 3.375 gm/Sodium Chloride 50 ml @ 100 mls/hr Q6HRS IV Last administered on 12/17/21at 05:50; Start 12/17/21 at 06:00 Vancomycin HCl 750 mg/Sodium Chloride 250 ml @ 250 mls/hr Q8H IV ; Start 12/17/21 at 08:30 Vancomycin HCl (Vancomycin Trough Level) 1 each 1X ONCE MC ; Start 12/18/21 at 00:01; Stop 12/18/21 at 00:02 Prochlorperazine Edisylate (Compazine) 5 mg PRN Q6HRS PRN IV NAUSEA/VOMITING 2ND CHOICE; Start 12/17/21 at 04:45 Active Scripts Active Allergies Allergies: Coded Allergies: No Known Drug Allergies (Unverified , 08/10/21) Vitals Vitals Vital Signs Date Time Temp Pulse Resp B/P (MAP) Pulse Ox O2 Delivery O2 Flow Rate FiO2 12/17/21 05:15 Room Air 12/17/21 04:37 16 97 12/17/21 02:30 97.7 87 148/89 (108) 97.[address] abdomen: Limited images of lung bases are clear. Heart size is within normal limits. No pleural or pericardial effusion. Liver is of diffuse low density compatible with fatty infiltration. No apparent mass. No biliary ductal dilatation. Gallbladder surgically absent. There is a large subcapsular collection at the lateral aspect of the left kidney with thickened peripheral rim. The collection measures 9.1 x 5.9 x 8.1 cm and flattens the lateral cortex. There is resultant mass effect upon the hilar structures without hydronephrosis. Mild urothelial thickening of the proximal left ureter. Mild inflammatory stranding in the perinephric fat. No renal or ureteral stone. Right kidney is unremarkable. The subcapsular collection abuts the pancreatic tail and there is mild inflammatory stranding around the pancreatic tail. Remaining pancreas is unremarkable. Adrenal glands are unremarkable. Unopacified GI tract normal in caliber and contour. No bowel wall thickening. No inflammatory stranding in the mesentery. No ascites or lymphadenopathy. Abdominal aorta normal in caliber. Appendix normal in caliber. Images of pelvis show mildly distended urinary bladder. There is diffuse bladder wall thickening. Uterus and adnexa are unremarkable. No free fluid or pelvic adenopathy. Bone window show no acute findings. Mild lower lumbar spondylosis. IMPRESSION: 1. There is a large subcapsular fluid collection at the lateral left kidney that is new from prior study. There are adjacent inflammatory changes in the perinephric fat with mild urothelial thickening of the proximal left ureter. Etiology is indeterminate but could represent pyelonephritis with perinephric abscess. There are also mild inflammatory changes at the pancreatic tail and a pancreatic pseudocyst dissecting along the lateral left kidney is another consideration. Correlate clinically. 2. Fatty infiltration of the liver. VTE Prophylaxis Ordered VTE Prophylaxis Devices: No VTE Pharmacological Prophylaxi: Yes Assessment/Plan Assessment/Plan Intractable abdominal pain - likely acute on chronic pancreatitis vs left perinephric hematoma. NPO, IVF, IV pain control q4hrs. GI consulted Alcohol use disorder - will place on CIWA, counseled on cessation Transaminitis - likely alcoholic hepatitis. Will monitor Hypokalemia - likely GI losses, will replace Left perinephric hematoma - will consult urology and consider IR drainage given perisistance on imaging and possible enlargement Tobacco abuse - nicotine replacement therapy. Counseled on cessation PTSD with anxiety, depression - NPO H/o back surgery x3. FEN - NPO PPX - SCD FULL CODE Dispo - inpatient Justifications for Admission Other Justification ALYSA PEREZ MD Dec 17, 2021 07:23
[2021-12-17 07:35] LABS: BASO # 0.1 x10^3/uL (0.0-0.2); BASO % 1 % (0-3); EOS # 0.1 x10^3/uL (0.0-0.7); EOS % 1 % (0-3); HEMATOCRIT 30.6 % (36.0-47.0); HEMOGLOBIN 9.9 g/dL (12.0-15.5); LYMPH # 1.9 x10^3/uL (1.0-4.8); LYMPH % 32 % (24-48); MEAN CORPUSCULAR HEMOGLOBIN 33 pg (25-35); MEAN CORPUSCULAR HGB CONC 33 g/dL (31-37); MEAN CORPUSCULAR VOLUME 101 fL (79-100); MONO # 0.5 x10^3/uL (0.0-1.1); MONO % 9 % (0-9); NEUT # 3.3 x10^3/uL (1.8-7.7); NEUT % 56 % (31-73); PLATELET COUNT 423 x10^3/uL (140-400); RED BLOOD COUNT 3.04 x10^6/uL (3.50-5.40); WHITE BLOOD COUNT 5.8 x10^3/uL (4.0-11.0)
[2021-12-17 07:57] LABS: ALBUMIN 2.3 g/dL (3.4-5.0); ALBUMIN/GLOBULIN RATIO 0.6 (1.0-1.7); CALCIUM 7.9 mg/dL (8.5-10.1); CREATININE 0.7 mg/dL (0.6-1.0); GFR 95.2; MAGNESIUM 1.4 mg/dL (1.8-2.4); POTASSIUM 3.9 mmol/L (3.5-5.1); TOTAL BILIRUBIN 0.7 mg/dL (0.2-1.0); TOTAL PROTEIN 6.3 g/dL (6.4-8.2)
[2021-12-17] MEDS: VANCOMYCIN 750 MG in IV NORMAL SALINE 250ML 250 ML IV SCH ×2 (08:53→16:40)
[2021-12-17] MEDS: NICOTINE 21MG PATCH. TD SCH (08:53)
--- NOTE | 2021-12-17 09:44 | PDOC2 ---
GI CONSULT Date of Service: DATE: 12/17/21 TIME: 09:12 Reason For Consult: pancreatitis HPI: HPI: 36 y/o female sent from [facility]. H/o pancreatitis (likely alcohol) w/ pseudocyst. Tells me she's been sick for over a year. Has lost 90 pounds. Symptoms including upper abdominal pain, vomiting, and dark diarrhea were worse, so she went to the ER. Alcohol level [address]: large subcapsular fluid collection at the lateral left kidney w/ adjacent inflammatory changes in perinephric fat and mild urothelial thickening of the proximal left ureter - the subcapsular collection abuts the pancreatic tail and there is mild inflammatory stranding around the pancreatic tail w/ remaining pancreas being unremarkable. H/o reflux, untreated. Denies dysphagia, hematemesis, hematochezia, and constipation. No previous EGD or colonoscopy. S/p cholecystectomy (biliary dyskinesia). Hepatic steatosis on past imaging. Thinks she's had pancreatitis "once a month" for awhile. 12-13mm pseudocyst on CTs (two) in 11/2020. Denies NSAIDs - has leftover oxycodone and Tramadol that she rarely uses. IgG4 normal 07/2021. PMH: PMH: HLD (she denies), PTSD, anxiety/depression back surgery x 4 FH: Family History: No pertinent hx (deneis pancreas history) Social History: Smoke: 1 pack per day ALCOHOL: heavy ROS: GEN: Denies fevers, chills, sweats HEENT: Denies blurred vision, sore throat CV: Denies chest pain RESP: Denies shortness of air, cough GI: Per HPI : Denies hematuria, dysuria ENDO: +weight loss NEURO: Denies confusion, dizziness MSK: Denies weakness, joint pain/swelling SKIN: Denies jaundice, pruritus Vitals: Vitals: Vital Signs Date Time Temp Pulse Resp B/P (MAP) Pulse Ox O2 Delivery O2 Flow Rate FiO2 12/17/21 08:53 98 Room Air 12/17/21 07:00 97.6 61 18 141/101 (114) 97.6 Labs: Labs: Laboratory Tests Test 12/17/21 07:10 White Blood Count 5.8 x10^3/uL (4.0-11.0) Red Blood Count 3.04 x10^6/uL (3.50-5.40) Hemoglobin 9.9 g/dL (12.0-15.5) Hematocrit 30.6 % (36.0-47.0) Mean Corpuscular Volume 101 fL (79-100) Mean Corpuscular Hemoglobin 33 pg (25-35) Mean Corpuscular Hemoglobin Concent 33 g/dL (31-37) Red Cell Distribution Width 16.0 % (11.5-14.5) Platelet Count 423 x10^3/uL (140-400) Neutrophils (%) (Auto) 56 % (31-73) Lymphocytes (%) (Auto) 32 % (24-48) Monocytes (%) (Auto) 9 % (0-9) Eosinophils (%) (Auto) 1 % (0-3) Basophils (%) (Auto) 1 % (0-3) Neutrophils # (Auto) 3.3 x10^3/uL (1.8-7.7) Lymphocytes # (Auto) 1.9 x10^3/uL (1.0-4.8) Monocytes # (Auto) 0.5 x10^3/uL (0.0-1.1) Eosinophils # (Auto) 0.1 x10^3/uL (0.0-0.7) Basophils # (Auto) 0.1 x10^3/uL (0.0-0.2) Sodium Level 144 mmol/L (136-145) Potassium Level 3.9 mmol/L (3.5-5.1) Chloride Level 107 mmol/L (98-107) Carbon Dioxide Level 27 mmol/L (21-32) Anion Gap 10 (6-14) Blood Urea Nitrogen 3 mg/dL (7-20) Creatinine 0.7 mg/dL (0.6-1.0) Estimated GFR (Cockcroft-Gault) 95.2 BUN/Creatinine Ratio 4 (6-20) Glucose Level 94 mg/dL (70-99) Calcium Level 7.9 mg/dL (8.5-10.1) Magnesium Level 1.4 mg/dL (1.8-2.4) Total Bilirubin 0.7 mg/dL (0.2-1.0) Aspartate Amino Transf (AST/SGOT) 96 U/L (15-37) Alanine Aminotransferase (ALT/SGPT) 49 U/L (14-59) Alkaline Phosphatase 140 U/L (46-116) Total Protein 6.3 g/dL (6.4-8.2) Albumin 2.3 g/dL (3.4-5.0) Albumin/Globulin Ratio 0.6 (1.0-1.7) Lipase 151 U/L (73-393) Allergies: Coded Allergies: No Known Drug Allergies (Unverified , 08/10/21) Medications: Current Medications Medications (Trade) Dose Ordered Sig/Deborah Route PRN Reason Start Time Stop Time Status Last Admin Dose Admin Hydromorphone HCl (Dilaudid) 1 mg PRN Q4HRS PRN IVP PAIN 12/17/21 03:15 12/17/21 08:53 Ondansetron HCl (Zofran) 4 mg PRN Q4HRS PRN IVP NAUSEA/VOMITING 1ST CHOICE 12/17/21 03:15 12/17/21 04:01 Vancomycin HCl (Vanco Per Pharmacy) 1 each PRN DAILY PRN MC SEE COMMENTS 12/17/21 03:15 12/17/21 05:40 Sodium Chloride 1,000 ml @ 150 mls/hr Q6H40M IV 12/17/21 03:15 12/17/21 04:09 Lorazepam (Ativan Inj) 2 mg PRN Q1HR PRN IV For CIWA 8-14 12/17/21 03:15 12/17/21 04:01 Nicotine (Nicoderm Cq 21mg) 1 patch DAILY TD 12/17/21 09:00 12/17/21 08:53 Piperacillin Sod/ Tazobactam Sod 3.375 gm/Sodium Chloride 50 ml @ 100 mls/hr Q6HRS IV 12/17/21 06:00 12/17/21 05:50 Vancomycin HCl 750 mg/Sodium Chloride 250 ml @ 250 mls/hr Q8H IV 12/17/21 08:30 12/17/21 08:53 Imaging: Imaging: per HPI PE: GEN: NAD HEENT: Atraumatic, PERRL LUNGS: CTAB HEART: RRR ABD: LUE discomfort, soft, quiet EXTREMITY: No edema SKIN: No rashes, no jaundice NEURO/PSYCH: A & O 3, drowsy, drifts in and out A/P: A/P: Chronic n/v, upper abd pain, diarrhea, weight loss Macrocytic anemia, alcohol +231, rapid COVID negative Recurrent pancreatitis, h/o pseudocyst Acid reflux CRC screen - average risk S/p cholecystectomy Hepatic steatosis H/o perinephric hematoma - has seen urology in past H/o alcohol misuse -- Chronic/recurrent GI symptoms. Still drinking. Supportive care w/ IVF, limited PO (gave okay for ice chips and water), anti- emetics, IV acid-comber setter. Defer pain control/withdrawal precautions to primary. Needs to stop drinking. Consider further pancreas imaging as outpt along w/ scopes. Monitor for diarrhea, check stool studies if indicated. GABRIELE KEBEDE Dec 17, 2021 09:43
[2021-12-17 11:00] VITALS: BP 145/110
[2021-12-17] MEDS ORDERED: MAGNESIUM SULFATE 4GM 100 ML IV ONE (11:30)
[2021-12-17] MEDS: PANTOPRAZOLE IV PUSH 40 MG VIAL. IVP SCH (11:38)
--- NOTE | 2021-12-17 12:27 | NUR ---
SW following. Discussed with RN, pt from home with family, room air, NPO. GI following. Ruling out C-diff. RN advised no SW needs at this time. SW will continue to follow.
--- NOTE | 2021-12-17 14:32 | PDOC2 ---
UROLOGY CONSULT DOS: DATE: 12/17/21 TIME: 14:18 Reason for Consult: perinephric hematoma 36 year old female with PMH of alcohol abuse presented as a transfer from [facility] for abdominal pain x2 days. States she was nauseated and had a fever. CT A/P done at [place] found similar finding as previous admission here of perinephric hematoma, appearing smaller in size than the past. ROS ROS: RESPIRATORY: Shortness of breath denies. Cough denies. UROLOGY: Denies blood in urine. Denies difficulty urinating Current Medications Current Medications Hydromorphone HCl (Dilaudid) 1 mg PRN Q4HRS PRN IVP PAIN Last administered on 12/17/21at 13:02; Start 12/17/21 at 03:15 Ondansetron HCl (Zofran) 4 mg PRN Q4HRS PRN IVP NAUSEA/VOMITING 1ST CHOICE Last administered on 12/17/21at 04:01; Start 12/17/21 at 03:15 Vancomycin HCl (Vanco Per Pharmacy) 1 each PRN DAILY PRN MC SEE COMMENTS Last administered on 12/17/21at 12:52; Start 12/17/21 at 03:15 Piperacillin Sod/ Tazobactam Sod (Zosyn Per Pharmacy) 1 each PRN DAILY PRN MC SEE COMMENTS; Start 12/17/21 at 03:15 Sodium Chloride 1,000 ml @ 150 mls/hr Q6H40M IV Last administered on 12/17/21at 12:59; Start 12/17/21 at 03:15 Lorazepam (Ativan Inj) 2 mg PRN Q1HR PRN IV For CIWA 8-14 Last administered on 12/17/21at 10:14; Start 12/17/21 at 03:15 Lorazepam (Ativan Inj) 4 mg PRN Q1HR PRN IV For CIWA 15 or greater; Start 12/17/21 at 03:15 Nicotine (Nicoderm Cq 21mg) 1 patch DAILY TD Last administered on 12/17/21at 08:53; Start 12/17/21 at 09:00 Piperacillin Sod/ Tazobactam Sod 3.375 gm/Sodium Chloride 50 ml @ 100 mls/hr Q6HRS IV Last administered on 12/17/21at 11:39; Start 12/17/21 at 06:00 Vancomycin HCl 750 mg/Sodium Chloride 250 ml @ 250 mls/hr Q8H IV Last administered on 12/17/21at 08:53; Start 12/17/21 at 08:30 Vancomycin HCl (Vancomycin Trough Level) 1 each 1X ONCE MC ; Start 12/18/21 at 00:01; Stop 12/18/21 at 00:02 Prochlorperazine Edisylate (Compazine) 5 mg PRN Q6HRS PRN IV NAUSEA/VOMITING 2ND CHOICE; Start 12/17/21 at 04:45 Bisacodyl (Dulcolax Supp) 10 mg PRN DAILY PRN [place] CONSTIPATION; Start 12/17/21 at 07:15 Acetaminophen (Tylenol Supp) 650 mg PRN Q6HRS PRN [place] MILD PAIN / TEMP > 100.3'F; Start 12/17/21 at 07:15 Enalaprilat (Vasotec Inj) 1.25 mg PRN Q6HRS PRN IVP HYPERTENSION; Start 12/17/21 at 07:30 Pantoprazole Sodium (PROTONIX VIAL for IV PUSH) 40 mg DAILYAC IVP Last administered on 12/17/21at 11:38; Start 12/17/21 at 10:30 Magnesium Sulfate 100 ml @ 25 mls/hr 1X ONCE IV Last administered on 12/17/21at 12:54; Start 12/17/21 at 11:30; Stop 12/17/21 at 15:29 Active Scripts Active Allergies: Coded Allergies: No Known Drug Allergies (Unverified , 08/10/21) Physical Examination PHYSICAL EXAMINATION: GENERAL: Gen. appearance: No acute distress. Mood/affect: Pleasant. HEENT: Head: Normocephalic, atraumatic. Airway Impairment: No. CHEST: Shape and expansion: Normal. Expansion: Normal. SKIN: General: Warm. Color: Good. GENITOURINARY:deferred. Abdomen: generalized pain NEUROLOGICAL: Mental status: Alert and oriented 3. Language: Normal. VITALS Vital Signs Date Time Temp Pulse Resp B/P (MAP) Pulse Ox O2 Delivery O2 Flow Rate FiO2 12/17/21 13:40 96 Room Air 12/17/21 11:00 99.2 80 16 145/110 (122) 99.2 Labs Laboratory Tests Test 12/17/21 07:10 White Blood Count 5.8 x10^3/uL (4.0-11.0) Red Blood Count 3.04 x10^6/uL (3.50-5.40) Hemoglobin 9.9 g/dL (12.0-15.5) Hematocrit 30.6 % (36.0-47.0) Mean Corpuscular Volume 101 fL (79-100) Mean Corpuscular Hemoglobin 33 pg (25-35) Mean Corpuscular Hemoglobin Concent 33 g/dL (31-37) Red Cell Distribution Width 16.0 % (11.5-14.5) Platelet Count 423 x10^3/uL (140-400) Neutrophils (%) (Auto) 56 % (31-73) Lymphocytes (%) (Auto) 32 % (24-48) Monocytes (%) (Auto) 9 % (0-9) Eosinophils (%) (Auto) 1 % (0-3) Basophils (%) (Auto) 1 % (0-3) Neutrophils # (Auto) 3.3 x10^3/uL (1.8-7.7) Lymphocytes # (Auto) 1.9 x10^3/uL (1.0-4.8) Monocytes # (Auto) 0.5 x10^3/uL (0.0-1.1) Eosinophils # (Auto) 0.1 x10^3/uL (0.0-0.7) Basophils # (Auto) 0.1 x10^3/uL (0.0-0.2) Sodium Level 144 mmol/L (136-145) Potassium Level 3.9 mmol/L (3.5-5.1) Chloride Level 107 mmol/L (98-107) Carbon Dioxide Level 27 mmol/L (21-32) Anion Gap 10 (6-14) Blood Urea Nitrogen 3 mg/dL (7-20) Creatinine 0.7 mg/dL (0.6-1.0) Estimated GFR (Cockcroft-Gault) 95.2 BUN/Creatinine Ratio 4 (6-20) Glucose Level 94 mg/dL (70-99) Calcium Level 7.9 mg/dL (8.5-10.1) Magnesium Level 1.4 mg/dL (1.8-2.4) Total Bilirubin 0.7 mg/dL (0.2-1.0) Aspartate Amino Transf (AST/SGOT) 96 U/L (15-37) Alanine Aminotransferase (ALT/SGPT) 49 U/L (14-59) Alkaline Phosphatase 140 U/L (46-116) Total Protein 6.3 g/dL (6.4-8.2) Albumin 2.3 g/dL (3.4-5.0) Albumin/Globulin Ratio 0.6 (1.0-1.7) Lipase 151 U/L (73-393) Laboratory Tests Test 12/17/21 07:10 White Blood Count 5.8 x10^3/uL (4.0-11.0) Red Blood Count 3.04 x10^6/uL (3.50-5.40) Hemoglobin 9.9 g/dL (12.0-15.5) Hematocrit 30.6 % (36.0-47.0) Mean Corpuscular Volume 101 fL (79-100) Mean Corpuscular Hemoglobin 33 pg (25-35) Mean Corpuscular Hemoglobin Concent 33 g/dL (31-37) Red Cell Distribution Width 16.0 % (11.5-14.5) Platelet Count 423 x10^3/uL (140-400) Neutrophils (%) (Auto) 56 % (31-73) Lymphocytes (%) (Auto) 32 % (24-48) Monocytes (%) (Auto) 9 % (0-9) Eosinophils (%) (Auto) 1 % (0-3) Basophils (%) (Auto) 1 % (0-3) Neutrophils # (Auto) 3.3 x10^3/uL (1.8-7.7) Lymphocytes # (Auto) 1.9 x10^3/uL (1.0-4.8) Monocytes # (Auto) 0.5 x10^3/uL (0.0-1.1) Eosinophils # (Auto) 0.1 x10^3/uL (0.0-0.7) Basophils # (Auto) 0.1 x10^3/uL (0.0-0.2) Sodium Level 144 mmol/L (136-145) Potassium Level 3.9 mmol/L (3.5-5.1) Chloride Level 107 mmol/L (98-107) Carbon Dioxide Level 27 mmol/L (21-32) Anion Gap 10 (6-14) Blood Urea Nitrogen 3 mg/dL (7-20) Creatinine 0.7 mg/dL (0.6-1.0) Estimated GFR (Cockcroft-Gault) 95.2 BUN/Creatinine Ratio 4 (6-20) Glucose Level 94 mg/dL (70-99) Calcium Level 7.9 mg/dL (8.5-10.1) Magnesium Level 1.4 mg/dL (1.8-2.4) Total Bilirubin 0.7 mg/dL (0.2-1.0) Aspartate Amino Transf (AST/SGOT) 96 U/L (15-37) Alanine Aminotransferase (ALT/SGPT) 49 U/L (14-59) Alkaline Phosphatase 140 U/L (46-116) Total Protein 6.3 g/dL (6.4-8.2) Albumin 2.3 g/dL (3.4-5.0) Albumin/Globulin Ratio 0.6 (1.0-1.7) Lipase 151 U/L (73-393) Assessment/Plan ---Perinephric hematoma Seen previously on CT scan. Concern for possible abscess, but WBC count normal, vitals stable so low probability. Per nursing, IR was consulted and denied being able to drain the collection. No urological intervention at this lynne as does not appear to be abscess.. Would have recommended IR drainage if possible. [place] [facility] [place] to assess for any changes. Recommend one month. D/w Dr. Mcnally. Call with any urology questions. NELSON HOBSON APRN Dec 17, 2021 14:32
[2021-12-17 15:00] VITALS: BP 155/100
[2021-12-17 19:30] VITALS: BP 164/115
[2021-12-17 23:15] VITALS: BP 156/100
[2021-12-18] VITALS (7 sets, daily range): BP systolic 153–200; BP diastolic 100–122
[2021-12-18 00:59] LABS: VANC TR 23.7 mcg/mL (10.0-20.0)
[2021-12-18] MEDS: VANCOMYCIN PER PHARMACY MC PRN (03:42)
--- NOTE | 2021-12-18 03:49 | NUR ---
Pharmacy Vancomycin Dosing Note S:Consulted to monitor and dose vancomycin started 12/17/21. O:JULIA GURROLA is a 36 year old F with Abscess PERINEPHRIC ABSCESS VS PANCREATIC PSEUDOCYST . Height: 5 feet, 5 inches Weight: 52.5 kg [place] Body Weight: 57.00 Adjusted Body Weight: 55.20 Dosing Weight: Actual Other Antibiotics: ZOSYN LABS: Last BUN: 3 Last Creatinine: 0.7 Creatinine Clearance: 92 mL/min Last WBC: 5.8 Last Procalcitonin: Tmax (past 24 hours): 99 Microbiology: - I/O: Drug Levels: Last Trough level: 23.7 on 12/18/21 at 0025 Last dose given 12/17/21 at 1640 Vancomycin Dosing: Loading Dose: 1250 mg x1 Dosing Weight: Actual Target Trough: 10-20 A: Based on: SUPRATHERAPEUTIC VANCOMYCIN TROUGH P: 1. HOLD Vancomycin PENDING RANDOM LEVEL THIS AFTERNOON 2. Follow up Random level on 12/18/21 at 1600 3. Pharmacy will continue to monitor, follow and adjust therapy as needed. RADHA ALEXANDER Tesha, 12/18/21 [id number]
[2021-12-18] MEDS: HYDROmorphone 2 MG/ML INJ. IVP PRN ×6 (03:52→21:58)
[2021-12-18] MEDS: IV NORMAL SALINE 1000ML BAG 1,000 ML IV SCH ×3 (03:56→19:15)
[2021-12-18] MEDS: PIPERACILLIN/TAZOBACTAM 3.375 GM in IV NORMAL SALINE 50ML 50 ML IV SCH ×2 (05:54→11:31)
[2021-12-18] MEDS: PANTOPRAZOLE IV PUSH 40 MG VIAL. IVP SCH (09:07)
[2021-12-18] MEDS: NICOTINE 21MG PATCH. TD SCH (09:07)
[2021-12-18] MEDS: ENALAPRILAT 1.25 MG/ML VIAL. IVP PRN ×2 (09:45→19:12)
[2021-12-18] MEDS: ONDANSETRON PF 4 MG/2 ML VIAL. IVP PRN ×2 (11:32→20:22)
--- NOTE | 2021-12-18 14:09 | PDOC ---
GENERAL General: Patient examined chart reviewed today's hospital day 2 for this patient transfe rred from [facility] for more advanced assessment for her acute on chronic pancreatitis, chronic alcoholism admitted intoxicated, and a left perinephric hematoma that has been followed for several months. We appreciate GI and urology assessments. The hematoma looks like it is coming down in size. I agree that it does not appear to be infected. Unfortunately interventional radiology is not able to get to it adequately for drainage. Patient has been on broad-spectrum antibiotics. We will stop those at this point as she does not appear to be clinically infected. We will add empiric oral antibiotics for her bronchitis. Reassess her chest x-ray. She has had several rapid Covid swabs that are negative including the most recent one at [facility] emergency department which was negative. We will advance her diet, continue intravenous hydration, and reassess for discharge depending on her progress. We will need to encourage patient to quit drinking entirely and look into outpatient alcohol rehab and AA on discharge. Continue alcohol withdrawal protocol. Time spent today is 30 minutes with greater than 50% in counseling and coordination of care most of which in discussion with patient regarding care plan and progress. Problems: (1) Chronic alcoholism (2) Chronic pancreatitis due to chronic alcoholism (3) Perinephric hematoma VITAL SIGNS Vital Signs/I&O: Vital Signs Date Time Temp Pulse Resp B/P (MAP) Pulse Ox O2 Delivery O2 Flow Rate FiO2 12/18/21 10:53 98.0 101 18 159/114 (129) 95 Room Air 98.0 I & O 12/17/21 12/17/21 12/18/21 15:00 23:00 07:00 Intake Total 100 ml 2905 ml 1050 ml Output Total 400 ml 200 ml Balance -300 ml 2905 ml 850 ml In general patient is quiet a bit withdrawn coughing throughout the visit nonproductive alert and oriented x3 no acute distress HEENT exam is unremarkable for acute abnormality Neck is soft and supple no adenopathy or thyromegaly noted Chest is clear to auscultation Heart S1-S2 normal regular rate and rhythm no murmurs or gallops are noted Abdomen soft nontender nondistended no masses organomegaly noted Extremity exam is unremarkable for acute abnormality ALLERGIES Allergies: Allergies Coded Allergies Type Severity Reaction Last Updated Verified No Known Drug Allergies 08/10/21 No MEDS Medications: Current Medications Medications (Trade) Dose Ordered Sig/Deborah Start Time Stop Time Status Last Admin Dose Admin Acetaminophen (Tylenol Supp) 650 mg PRN Q6HRS PRN 12/17/21 07:15 Benzonatate (Tessalon Perle) 100 mg [id number] 12/18/21 21:00 UNV Bisacodyl (Dulcolax Supp) 10 mg PRN DAILY PRN 12/17/21 07:15 Enalaprilat (Vasotec Inj) 1.25 mg PRN Q6HRS PRN 12/17/21 07:30 12/18/21 09:45 Guaifenesin (Mucinex) 600 mg BID 12/18/21 21:00 UNV Hydromorphone HCl (Dilaudid) 1 mg PRN Q4HRS PRN 12/17/21 03:15 12/18/21 09:13 Lorazepam (Ativan Inj) 4 mg PRN Q1HR PRN 12/17/21 03:15 Magnesium Sulfate 100 ml @ 25 mls/hr 1X ONCE 12/17/21 11:30 12/17/21 15:29 DC 12/17/21 12:54 Nicotine (Nicoderm Cq 21mg) 1 patch DAILY 12/17/21 09:00 12/18/21 09:07 Ondansetron HCl (Zofran) 4 mg PRN Q4HRS PRN 12/17/21 03:15 12/18/21 11:32 Pantoprazole Sodium (PROTONIX VIAL for IV PUSH) 40 mg DAILYAC 12/17/21 10:30 12/18/21 09:07 Piperacillin Sod/ Tazobactam Sod (Zosyn Per Pharmacy) 1 each PRN DAILY PRN 12/17/21 03:15 Piperacillin Sod/ Tazobactam Sod 3.375 gm/Sodium Chloride 50 ml @ 100 mls/hr Q6HRS 12/17/21 06:00 12/18/21 14:00 DC 12/18/21 11:31 Prochlorperazine Edisylate (Compazine) 5 mg PRN Q6HRS PRN 12/17/21 04:45 Sodium Chloride 1,000 ml @ 150 mls/hr Q6H40M 12/17/21 03:15 12/18/21 11:31 Vancomycin HCl (Vanco Per Pharmacy) 1 each PRN DAILY PRN 12/17/21 03:15 12/18/21 14:00 DC 12/18/21 03:42 Vancomycin HCl (Vancomycin Random Level) 1 each 1X ONCE 12/18/21 16:00 12/18/21 16:01 Vancomycin HCl (Vancomycin Trough Level) 1 each 1X ONCE 12/18/21 00:01 12/18/21 00:02 DC 12/18/21 00:01 Vancomycin HCl 750 mg/Sodium Chloride 250 ml @ 250 mls/hr Q8H 12/17/21 08:30 12/18/21 01:21 DC 12/17/21 16:40 Current Medications Medications (Trade) Dose Ordered Sig/Deborah Route PRN Reason Start Time Stop Time Status Last Admin Dose Admin Vancomycin HCl (Vancomycin Trough Level) 1 each 1X ONCE MC 12/18/21 00:01 12/18/21 00:02 DC 12/18/21 00:01 LAB Lab: Laboratory Tests Test 12/18/21 00:25 Vancomycin Level Trough 23.7 mcg/mL (10.0-20.0) H Vancomycin Last Dose Date [id number] Vancomycin Last Dose Time 163 ASSESSMENT & PLAN A&P Plan as noted above This note was created using [employer] and may have omissions and/or errors due to the nature of real-time voice account resolution specialist. Justifications for Admission Other Justification Nutrition Consultation Dietary Evaluation: Recommendations by RD: Dietary education by RD, Add supplement feedings Comments: REC low fat diet when able to tolerate mvi at d/c Expected Outcomes/Goals: diet adv/tolerate meet >75% est nutr needs Interpretation of weight loss: >20% in 1 year Malnutrition Findings: Food and Nutrition Intake (Sev: <50% est energy req 5days Weight Status: Appropriate YAHIR EWING MD Dec 18, 2021 14:09
--- NOTE | 2021-12-18 15:40 | RAD ---
XR CHEST 1V INDICATION: cough. COMPARISON STUDY: None. FINDINGS: Lungs: Normal lung volume. No pulmonary mass or consolidation. The tracheobronchial tree and hilar st ructures are normal. Pleura: No pleural effusion or pneumothorax. Heart and Mediastinum: The cardiomediastinal silhouette is normal. The great vessels of the thorax ar e normal. Bones and Soft Tissues: The bones and soft tissues are within normal limits. IMPRESSION: No acute cardiopulmonary process. Electronically signed by: Glenn Moraes MD (12/18/2021 3:38 PM) [facility]
[2021-12-18] MEDS ORDERED: VANCOMYCIN RANDOM LEVEL. MC ONE (16:00)
[2021-12-18 17:48] LABS: GFR 63.1
--- NOTE | 2021-12-18 19:34 | NUR ---
Pt. is complainiing that her pain level is at a 9 after receiving Dilaudad about an hour ago. Would like to have something more for pain, or would like the frequency of her Dilaudid decreased to q2. Left message with Dr. Brown's distribution spec group around 193.
[2021-12-18] MEDS: BENZONATATE 100 MG CAPSULE. PO SCH (21:25)
[2021-12-19] MEDS: HYDROmorphone 2 MG/ML INJ. IVP PRN ×9 (00:32→23:34)
[2021-12-19] MEDS: IV NORMAL SALINE 1000ML BAG 1,000 ML IV SCH ×4 (01:55→21:47)
[2021-12-19 02:50] VITALS: BP 173/105
[2021-12-19] MEDS: ENALAPRILAT 1.25 MG/ML VIAL. IVP PRN ×3 (02:58→23:33)
[2021-12-19] MEDS: ONDANSETRON PF 4 MG/2 ML VIAL. IVP PRN (05:07)
[2021-12-19] MEDS: PANTOPRAZOLE IV PUSH 40 MG VIAL. IVP SCH (06:35)
[2021-12-19 07:00] VITALS: BP 179/121
[2021-12-19] MEDS: AZITHROMYCIN 250 MG TABLET. PO SCH (08:24)
[2021-12-19] MEDS: BENZONATATE 100 MG CAPSULE. PO SCH ×3 (08:25→21:40)
[2021-12-19] MEDS: NICOTINE 21MG PATCH. TD SCH (08:25)
[2021-12-19 09:17] LABS: BASO # 0.1 x10^3/uL (0.0-0.2); BASO % 1 % (0-3); EOS # 0.3 x10^3/uL (0.0-0.7); EOS % 4 % (0-3); HEMATOCRIT 35.2 % (36.0-47.0); HEMOGLOBIN 11.4 g/dL (12.0-15.5); LYMPH # 2.2 x10^3/uL (1.0-4.8); LYMPH % 32 % (24-48); MEAN CORPUSCULAR HEMOGLOBIN 33 pg (25-35); MEAN CORPUSCULAR HGB CONC 33 g/dL (31-37); MEAN CORPUSCULAR VOLUME 100 fL (79-100); MONO # 0.5 x10^3/uL (0.0-1.1); MONO % 7 % (0-9); NEUT # 3.7 x10^3/uL (1.8-7.7); NEUT % 56 % (31-73); PLATELET COUNT 394 x10^3/uL (140-400); RED BLOOD COUNT 3.51 x10^6/uL (3.50-5.40); RED CELL DISTRIBUTION WIDTH 15.9 % (11.5-14.5); WHITE BLOOD COUNT 6.7 x10^3/uL (4.0-11.0)
[2021-12-19 09:41] LABS: ALBUMIN 2.4 g/dL (3.4-5.0); ALBUMIN/GLOBULIN RATIO 0.5 (1.0-1.7); CALCIUM 8.9 mg/dL (8.5-10.1); CREATININE 0.9 mg/dL (0.6-1.0); GFR 71.3; POTASSIUM 3.2 mmol/L (3.5-5.1); TOTAL BILIRUBIN 0.3 mg/dL (0.2-1.0); TOTAL PROTEIN 6.9 g/dL (6.4-8.2)
[2021-12-19 11:00] VITALS: BP 168/121
[2021-12-19] MEDS ORDERED: POTASSIUM CHLORIDE 20 MEQ TABLET.ER. PO ONE (12:30)
--- NOTE | 2021-12-19 12:47 | PDOC ---
GENERAL General: Patient examined chart reviewed no events overnight noted. She sitting in front of a clear liquid tray with beef broth with ice and it that is congealed already. She tells me that she cannot tolerate beef broth and needs chicken broth and she wants it hot please. She does not believe that she will be able to tolerate oral potassium and potassium level is 3.2 today. We will go ahead and order that IV. She is agreeable to adding duloxetine to help with pain and mood. We will need to continue to work hard on supporting her with maintenance of alcohol cessation. She is not ready to advance her diet at this point. Time spent today is 30 minutes with greater than 50% in counseling and coordination of care most of which in discussion with patient regarding care plan and progress. Problems: (1) Chronic alcoholism (2) Chronic pancreatitis due to chronic alcoholism (3) Perinephric hematoma (4) Biliary dyskinesia VITAL SIGNS Vital Signs/I&O: Vital Signs Date Time Temp Pulse Resp B/P (MAP) Pulse Ox O2 Delivery O2 Flow Rate FiO2 12/19/21 11:45 18 100 Room Air 12/19/21 11:40 93 168/121 12/19/21 11:00 98.4 98.4 I & O 12/18/21 12/18/21 12/19/21 15:00 23:00 07:00 Intake Total 0 ml 1240 ml Balance 0 ml 1240 ml In general patient is laying in bed tearful today tells me that she is tired of all of her pain and trouble HEENT exam is unremarkable for acute abnormality Chest is clear to auscultation Heart S1-S2 normal regular rate and rhythm no murmurs or gallops are noted Abdomen mild tenderness throughout no masses organomegaly noted bowel sounds are present though diminished Extremity exam is unremarkable for acute abnormality ALLERGIES Allergies: Allergies Coded Allergies Type Severity Reaction Last Updated Verified No Known Drug Allergies 08/10/21 No MEDS Medications: Current Medications Medications (Trade) Dose Ordered Sig/Deborah Start Time Stop Time Status Last Admin Dose Admin Acetaminophen (Tylenol Supp) 650 mg PRN Q6HRS PRN 12/17/21 07:15 Amlodipine Besylate (Norvasc) 5 mg HS 12/18/21 23:15 12/18/21 23:40 Azithromycin (Zithromax) 500 mg DAILY 12/19/21 09:00 12/24/21 08:59 12/19/21 08:24 Benzonatate (Tessalon Perle) 100 mg [id number] 12/18/21 21:00 12/19/21 08:25 Bisacodyl (Dulcolax Supp) 10 mg PRN DAILY PRN 12/17/21 07:15 Enalaprilat (Vasotec Inj) 1.25 mg PRN Q6HRS PRN 12/17/21 07:30 12/19/21 11:40 Guaifenesin (Mucinex) 600 mg BID 12/18/21 21:00 12/19/21 08:24 Hydromorphone HCl (Dilaudid) 0.6 mg PRN Q2HR PRN 12/18/21 20:25 12/19/21 11:45 Labetalol HCl (Normodyne Iv Push) 10 mg PRN Q2HR PRN 12/18/21 23:15 Lorazepam (Ativan Inj) 4 mg PRN Q1HR PRN 12/17/21 03:15 Magnesium Sulfate 100 ml @ 25 mls/hr 1X ONCE 12/17/21 11:30 12/17/21 15:29 DC 12/17/21 12:54 Nicotine (Nicoderm Cq 21mg) 1 patch DAILY 12/17/21 09:00 12/19/21 08:25 Ondansetron HCl (Zofran) 4 mg PRN Q4HRS PRN 12/17/21 03:15 12/19/21 05:07 Pantoprazole Sodium (PROTONIX VIAL for IV PUSH) 40 mg DAILYAC 12/17/21 10:30 12/19/21 06:35 Piperacillin Sod/ Tazobactam Sod (Zosyn Per Pharmacy) 1 each PRN DAILY PRN 12/17/21 03:15 12/19/21 12:18 DC Piperacillin Sod/ Tazobactam Sod 3.375 gm/Sodium Chloride 50 ml @ 100 mls/hr Q6HRS 12/17/21 06:00 12/18/21 14:00 DC 12/18/21 11:31 Prochlorperazine Edisylate (Compazine) 5 mg PRN Q6HRS PRN 12/17/21 04:45 Sodium Chloride 1,000 ml @ 150 mls/hr Q6H40M 12/17/21 03:15 12/19/21 08:26 Vancomycin HCl (Vanco Per Pharmacy) 1 each PRN DAILY PRN 12/17/21 03:15 12/18/21 14:00 DC 12/18/21 03:42 Vancomycin HCl (Vancomycin Random Level) 1 each 1X ONCE 12/18/21 16:00 12/18/21 16:01 DC Vancomycin HCl (Vancomycin Trough Level) 1 each 1X ONCE 12/18/21 00:01 12/18/21 00:02 DC 12/18/21 00:01 Vancomycin HCl 750 mg/Sodium Chloride 250 ml @ 250 mls/hr Q8H 12/17/21 08:30 12/18/21 01:21 DC 12/17/21 16:40 Current Medications Medications (Trade) Dose Ordered Sig/Deboarh Route PRN Reason Start Time Stop Time Status Last Admin Dose Admin Guaifenesin (Mucinex) 600 mg BID PO 12/18/21 21:00 12/19/21 08:24 Benzonatate (Tessalon Perle) 100 mg [id number] PO 12/18/21 21:00 12/19/21 08:25 Azithromycin (Zithromax) 500 mg DAILY PO 12/19/21 09:00 12/24/21 08:59 12/19/21 08:24 Hydromorphone HCl (Dilaudid) 0.6 mg PRN Q2HR PRN IVP MODERATE TO SEVERE PAIN 12/18/21 20:25 12/19/21 11:45 Amlodipine Besylate (Norvasc) 5 mg HS PO 12/18/21 23:15 12/18/21 23:40 LAB Lab: Laboratory Tests Test 12/18/21 17:25 12/19/21 08:40 Creatinine 1.0 mg/dL (0.6-1.0) 0.9 mg/dL (0.6-1.0) Estimated GFR (Cockcroft-Gault) 63.1 71.3 White Blood Count 6.7 x10^3/uL (4.0-11.0) Red Blood Count 3.51 x10^6/uL (3.50-5.40) Hemoglobin 11.4 g/dL (12.0-15.5) L Hematocrit 35.2 % (36.0-47.0) L Mean Corpuscular Volume 100 fL (79-100) Mean Corpuscular Hemoglobin 33 pg (25-35) Mean Corpuscular Hemoglobin Concent 33 g/dL (31-37) Red Cell Distribution Width 15.9 % (11.5-14.5) H Platelet Count 394 x10^3/uL (140-400) Neutrophils (%) (Auto) 56 % (31-73) Lymphocytes (%) (Auto) 32 % (24-48) Monocytes (%) (Auto) 7 % (0-9) Eosinophils (%) (Auto) 4 % (0-3) H Basophils (%) (Auto) 1 % (0-3) Neutrophils # (Auto) 3.7 x10^3/uL (1.8-7.7) Lymphocytes # (Auto) 2.2 x10^3/uL (1.0-4.8) Monocytes # (Auto) 0.5 x10^3/uL (0.0-1.1) Eosinophils # (Auto) 0.3 x10^3/uL (0.0-0.7) Basophils # (Auto) 0.1 x10^3/uL (0.0-0.2) Sodium Level 145 mmol/L (136-145) Potassium Level 3.2 mmol/L (3.5-5.1) L Chloride Level 106 mmol/L (98-107) Carbon Dioxide Level 28 mmol/L (21-32) Anion Gap 11 (6-14) Blood Urea Nitrogen 4 mg/dL (7-20) L BUN/Creatinine Ratio 4 (6-20) L Glucose Level 89 mg/dL (70-99) Calcium Level 8.9 mg/dL (8.5-10.1) Total Bilirubin 0.3 mg/dL (0.2-1.0) Aspartate Amino Transferase (AST) 31 U/L (15-37) Alanine Aminotransferase (ALT) 26 U/L (14-59) Alkaline Phosphatase 130 U/L (46-116) H Total Protein 6.9 g/dL (6.4-8.2) Albumin 2.4 g/dL (3.4-5.0) L Albumin/Globulin Ratio 0.5 (1.0-1.7) L Laboratory Tests 12/19/21 08:40 Laboratory Tests 12/18/21 17:25 12/19/21 08:40 ASSESSMENT & PLAN A&P Plan as noted above This note was created using [employer] and may have omissions and/or errors due to the nature of real-time voice natural remedy consultant. Justifications for Admission Other Justification Nutrition Consultation Dietary Evaluation: Recommendations by RD: Dietary education by RD, Add supplement feedings Comments: REC low fat diet when able to tolerate mvi at d/c Expected Outcomes/Goals: diet adv/tolerate meet >75% est nutr needs Interpretation of weight loss: >20% in 1 year Malnutrition Findings: Food and Nutrition Intake (Sev: <50% est energy req 5days Weight Status: Appropriate YAHIR EWING MD Dec 19, 2021 12:47
[2021-12-19] MEDS: POTASSIUM CHLORIDE 10MEQ 100 ML IV SCH ×2 (14:14→15:32)
[2021-12-19 15:00] VITALS: BP 184/117
[2021-12-19] MEDS: LABETALOL 20 MG/4 ML DISP.SYRIN. IVP PRN ×2 (15:39→20:14)
[2021-12-19 19:00] VITALS: BP 181/115
[2021-12-19 22:06] LABS: CHOLESTEROL/HDL RATIO 2.3
[2021-12-19 23:00] VITALS: BP 177/121
[2021-12-20] MEDS: HYDROmorphone 2 MG/ML INJ. IVP PRN ×2 (02:42→05:53)
[2021-12-20 03:00] VITALS: BP 153/106
[2021-12-20] MEDS: PANTOPRAZOLE IV PUSH 40 MG VIAL. IVP SCH (05:54)
[2021-12-20 07:00] VITALS: BP 170/116
[2021-12-20] MEDS ORDERED: HYDROcodone/APAP 5/325MG 1 TAB TABLET PO PRN (08:15)
[2021-12-20] MEDS ORDERED: LORazepam 0.5 MG TABLET PO PRN (08:15)
[2021-12-20] MEDS: IV NORMAL SALINE 1000ML BAG 1,000 ML IV SCH (08:32)
[2021-12-20] MEDS: BENZONATATE 100 MG CAPSULE. PO SCH (08:34)
[2021-12-20] MEDS: AZITHROMYCIN 250 MG TABLET. PO SCH (08:34)
[2021-12-20 08:35] VITALS: BP 170/116
[2021-12-20] MEDS: NICOTINE 21MG PATCH. TD SCH (08:35)
[2021-12-20] MEDS: ENALAPRILAT 1.25 MG/ML VIAL. IVP PRN (08:35)
[2021-12-20] MEDS ORDERED: DULoxetine HCL 20 MG CAPSULE.DR PO SCH (09:00)
[2021-12-20] MEDS ORDERED: AMLO-186 PO (09:41)
[2021-12-20] MEDS ORDERED: DULO20CA PO (09:41)
[2021-12-20] MEDS ORDERED: HYDR-2761 PO (09:44)
[2021-12-20] MEDS ORDERED: LORA0.5T96 PO (09:44)
--- NOTE | 2021-12-20 09:47 | PDOC3 ---
[facility]-Discharge Summary Date of Admission: Date of Admission: Dec 17, 2021 Date of Discharge: Date of Discharge: Dec 20, 2021 Admission Diagnosis: Problems: (1) Chronic pancreatitis due to chronic alcoholism Consults: Consults: GI, Urology Hospital Course: Hospital Course: Ms Buckley is a 36-year-old female w/ PMHx alcohol abuse, tobacco abuse, anxiety, depression, hyperlipidemia, hepatic steatosis, posttraumatic stress disorder, history of back surgery x3 , recurrent pancreatitis who presents to the ED at [facility] in [place], [place] with generalized abdominal pain. Patient states that pain started on 12/15/2021 at night at 11 PM. Patient states she was running a fever and also vomiting. She continues to drink alcohol. Reports taking ibuprofen and Tylenol for discomfort with no relief. Labs with WBC 9.6, Hb 11.8 with MCV 102, platelets 522, NA 139, K3.1, BUN 4, CR 0.5, glucose 107, calcium 8.8, magnesium 1.7, bilirubin 0.3, AST 67, ALT 42, alkaline phosphatase 158, albumin 2.9, lipase 216, urine drug screen positive for ethyl alcohol and ethanol level 12/16/21 at 2013 was 238 mg/dL, rapid influenza and rapid COVID-19 negative. EKG sinus tachycardia rate 102 bpm otherwise normal axis and intervals, QTC 479 CT abdomen reveals a large subcapsular collection at the lateral aspect of the left kidney with thickened peripheral rim. The collection measures 9.1 x 5.9 x 8.1 cm and flattens the lateral cortex Transferred to [facility] for higher level of care. Urology evaluated CT scan no need for intervention right now. GI evaluated as well. Outpatient follow-up. Patient was treated symptomatically and diet slowly advanced. On day of discharge she was able to tolerate p.o. intake not requiring IV medications. Greater than 30 minutes spent on this discharge. Disposition: Disposition/Orders: D/C to Home Activity: Activity: Resume previous activity Diet: Diet: Regular Medications: Home Meds Active Scripts Lorazepam (ATIVAN) 0.5 Mg Tablet, 0.5 MG PO PRN Q6HRS PRN for ANXIETY / AGITATION for 10 Days, #30 TAB Prov:ALYSA ALEXANDER MD 12/20/21 Hydrocodone Bit/Acetaminophen (HYDROCODONE-APAP 5-325 ) 1 Tab Tablet, 1 TAB PO PRN Q6HRS PRN for PAIN for 10 Days, #20 TAB Prov:ALYSA ALEXANDER MD 12/20/21 Scheduled PRN Hydrocodone Bit/Acetaminophen (Hydrocodone-Apap 5-325 ), 1 TAB PO PRN Q6HRS PRN for PAIN Lorazepam (Ativan), 0.5 MG PO PRN Q6HRS PRN for ANXIETY / AGITATION Justicifation of Admission Dx: Justifications for Admission: Justification of Admission Dx: Yes (alcohol w/d) ALYSA ALEXANDER MD Dec 20, 2021 09:47
--- NOTE | 2021-12-20 10:04 | PDOC ---
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 Ate full liquid breakfast, pain improved. Objective: Vital Signs: Vital Signs Date Time Temp Pulse Resp B/P (MAP) Pulse Ox O2 Delivery O2 Flow Rate FiO2 12/20/21 09:04 19 Room Air 12/20/21 08:35 74 170/116 12/20/21 07:00 98.0 99 98.0 Imaging: CXR 12/18 IMPRESSION: No acute cardiopulmonary process. PE: GEN: NAD LUNGS: CTAB HEART: RRR ABD: S/ND/NT NEURO/PSYCH: A & O 3, anxious A/P: Recurrent alcoholic pancreatitis, h/o pseudocyst Perinephric hematoma -- Tolerating diet, pain improved. Desire to DC noted as above - defer to primary. No alcohol. Follow-up w/ GI as needed for recurrent symptoms. Justicifation of Admission Dx: Justifications for Admission: Justification of Admission Dx: Yes (alcohol w/d) GABRIELE KEBEDE Dec 20, 2021 10:04
--- NOTE | 2021-12-20 10:40 | NUR ---
SW following. Discussed with RN, discharge for home with self care. RN advised no SW needs.
--- NOTE | 2021-12-20 10:50 | NUR ---
Discharge Note: JULIA GURROLA Discharge instructions and discharge home medications reviewed with Patient and a copy given. All questions have been answered and understanding verbalized. The following instructions and handouts were given: worsening symptoms, medication education, and follow up, alcohol cessation. Discontinued lines and drains: IV discontinued from right ac, telemetry removed, and skin intact. Patient discharged to home with spouse via private transportation, accompanied by spouse.
== END 2021-12-20 10:25 | disposition home or self-care (01) | DRG 439 ==
LOC: 2 NORTH 02:51
PROVIDERS: ADMIT Internal Medicine; ATTEND Internal Medicine
DX: K85.90 Acute pancreatitis without necrosis or infection, unspecified (principal); S37.012A Minor contusion of left kidney, initial encounter; E78.5 Hyperlipidemia, unspecified; E87.6 Hypokalemia; F10.20 Alcohol dependence, uncomplicated; F17.210 Nicotine dependence, cigarettes, uncomplicated; F32.A Depression, unspecified; F43.10 Post-traumatic stress disorder, unspecified; K70.10 Alcoholic hepatitis without ascites; K76.0 Fatty (change of) liver, not elsewhere classified; K86.1 Other chronic pancreatitis; Y90.7 Blood alcohol level of 200-239 mg/100 ml; D53.9 Nutritional anemia, unspecified; K82.8 Other specified diseases of gallbladder; K21.9 Gastro-esophageal reflux disease without esophagitis; Z20.822 Contact with and (suspected) exposure to COVID-19; X58.XXXA Exposure to other specified factors, initial encounter; Y93.89 Activity, other specified; Z90.49 Acquired absence of other specified parts of digestive tract; Y92.89 Other specified places as the place of occurrence of the external cause; Y99.8 Other external cause status
CPT/HCPCS: 36415; 71045; 80053; 80061; 80202; 82565; 82607; 83540; 83550; 83690; 83735; 85025; 99406; C9113; J1170; J2060; J2405; J2543; J3370; J3475; J3480; J3490; J7030; J7050; G0378

== ENCOUNTER 2022-03-06 17:20 | Inpatient (IN) | payer MEDICAID ==
[~2022-03-06] VITALS: Ht 162.6 cm; Wt 52.4 kg
[~2022-03-06 17:20] MED LIST changes: +AMLO-186 PO; +DULO20CA PO; +HYDR-2761 PO; +LORA0.5T96 PO
[2022-03-06] MEDS ORDERED: IV NORMAL SALINE 1000ML BAG 1,000 ML IV ONE (18:00)
[2022-03-06] MEDS ORDERED: fentaNYL PF VIAL 100 MCG/2 ML VIAL IVP ONE (18:00)
[2022-03-06] MEDS ORDERED: METOCLOPRAMIDE HCL 10 MG/2 ML VIAL. IVP ONE (18:00)
[2022-03-06 18:07] LABS: AMPHETAMINE/METHAMPHETAMINE NEG (NEG); BARBITURATES NEG (NEG); BENZODIAZEPINES NEG (NEG); CANNABINOIDS NEG (NEG); COCAINE NEG (NEG); METHADONE NEG (NEG); OPIATES NEG (NEG); PHENCYCLIDINE NEG (NEG)
[2022-03-06] MEDS ORDERED: METOCLOPRAMIDE HCL 10 MG/2 ML VIAL. ONE (18:10)
[2022-03-06] MEDS ORDERED: fentaNYL PF VIAL 100 MCG/2 ML VIAL ONE (18:11)
[2022-03-06 18:28] LABS: BASO # 0.1 x10^3/uL (0.0-0.2); BASO % 1 % (0-3); EOS # 0.1 x10^3/uL (0.0-0.7); EOS % 1 % (0-3); HEMATOCRIT 38.5 % (36.0-47.0); HEMOGLOBIN 13.4 g/dL (12.0-15.5); LYMPH # 2.8 x10^3/uL (1.0-4.8); LYMPH % 36 % (24-48); MEAN CORPUSCULAR HEMOGLOBIN 35 pg (25-35); MEAN CORPUSCULAR HGB CONC 35 g/dL (31-37); MEAN CORPUSCULAR VOLUME 101 fL (79-100); MONO # 0.5 x10^3/uL (0.0-1.1); MONO % 7 % (0-9); NEUT # 4.2 x10^3/uL (1.8-7.7); NEUT % 56 % (31-73); PLATELET COUNT 248 x10^3/uL (140-400); RED BLOOD COUNT 3.82 x10^6/uL (3.50-5.40); RED CELL DISTRIBUTION WIDTH 18.7 % (11.5-14.5); WHITE BLOOD COUNT 7.6 x10^3/uL (4.0-11.0)
[2022-03-06 18:35] LABS: BACTERIA,URINE 0 /HPF (0-FEW); WBC,URINE 0 /HPF (0-4)
--- NOTE | 2022-03-06 18:35 | PHYS DOC ---
Past Medical History Past Medical History: Anxiety, Depression, Hypertension, Liver Disease, P ancreatitis, Other Additional Past Medical Histor: PTSD Past Surgical History: Cholecystectomy Additional Past Surgical Histo: BACK Smoking Status: Current Every Day Smoker Alcohol Use: Heavy General Adult EDM: Chief Complaint: ABDOMINAL PAIN HPI: HPI: Patient is a 36-year-old female who presents today via [facility] for abdominal pain. Patient states that she has a history of chronic pancreatitis and that over the last couple of days she has increased her alcohol intake due to her abdominal pain. Patient states that she also has a history of a pseudocyst on her pancreas and that she sees Dr. Mckeon with gastrointestinal specialist and that she has a scheduled procedure in March to have the pseudocyst drained, she states that she continues to have increased pain. Patient states she had 5 beers today she states yesterday she drank quite a bit as well as took OxyContin for her pain. Patient states she has had nausea, vomiting and fever. EMS states that when they got to the home they found multiple empty liquor containers throughout the house, patient also has a small child with her and the child was unsupervised due to the intoxication of the mom. Review of Systems: Review of Systems: Constitutional: fever or chills. [] Eyes: Denies change in visual acuity. [] HENT: Denies nasal congestion or sore throat. [] Respiratory: Denies cough or shortness of breath. [] Cardiovascular: Denies chest pain or edema. [] GI: abdominal pain, nausea, vomiting, denies bloody stools or diarrhea. [] : Denies dysuria. [] Musculoskeletal: Denies back pain or joint pain. [] Integument: Denies rash. [] Neurologic: Denies headache, focal weakness or sensory changes. [] Endocrine: Denies polyuria or polydipsia. [] Lymphatic: Denies swollen glands. [] Psychiatric: Denies depression or anxiety. [] Heart Score: C/O Chest Pain: No Risk Factors: Risk Factors: DM, Current or recent (<one month) smoker, HTN, HLP, family history of CAD, obesity. Risk Scores: Score 0 - 3: 2.5% MACE over next 6 weeks - Discharge Home Score 4 - 6: 20.3% MACE over next 6 weeks - Admit for Clinical Observation Score 7 - 10: 72.7% MACE over next 6 weeks - Early Invasive Strategies Current Medications: Current Medications Medications (Trade) Dose Ordered Sig/Deborah Start Time Stop Time Status Last Admin Dose Admin Fentanyl Citrate (Fentanyl 2ml Vial) 100 mcg STK-MED ONCE 03/06/22 18:11 03/06/22 18:11 DC Metoclopramide HCl (Reglan Vial) 10 mg STK-MED ONCE 03/06/22 18:10 03/06/22 18:10 DC Sodium Chloride 1,000 ml @ 999 mls/hr 1X ONCE 03/06/22 18:00 03/06/22 19:00 Allergies: Allergies: Allergies Coded Allergies Type Severity Reaction Last Updated Verified No Known Drug Allergies 08/10/21 No Physical Exam: PE: Constitutional: Well developed, well nourished, moderate distress, non-toxic appearance. [] HENT: Normocephalic, atraumatic, bilateral external ears normal, oropharynx moist, no oral exudates, nose normal. [] Eyes: PERRLA, EOMI, conjunctiva normal, no discharge. [] Neck: Normal range of motion, no tenderness, supple, no stridor. [] Cardiovascular:Heart rate regular rhythm, no murmur [] Lungs & Thorax: Bilateral breath sounds clear to auscultation [] Abdomen: Abdomen soft and guarded, she has hypoactive bowel sounds, tenderness is located on the left upper quadrant. Skin: Warm, dry, no erythema, no rash. [] Back: No tenderness, no CVA tenderness. [] Extremities: No tenderness, no cyanosis, no clubbing, ROM intact, no edema, peripheral pulses are 2+ Neurologic: Alert and oriented X 3, normal motor function, normal sensory function, no focal deficits noted. [] Psychologic: Affect normal, judgement normal, mood normal. [] Current Patient Data: Labs: Laboratory Tests Test 03/06/22 17:40 03/06/22 18:00 Urine Collection Type Unknown Urine Color (Auto) Colorless Urine Turbidity Clear Urine pH (Auto) 7.0 Urine Specific [place] 1.004 Urine Protein (Auto) Negative mg/dL Urine Glucose (Auto)(UA) Negative mg/dL Urine Ketones (Auto) Negative mg/dL Urine Blood (Auto) Small Urine Nitrite Negative Urine Bilirubin (Auto) Negative Urine Urobilinogen (Auto) Normal mg/dL Urine Leukocyte Esterase (Auto) Negative Urine RBC 1-2 /HPF Urine WBC 0 /HPF Urine Squamous Epithelial Cells Occ /LPF Urine Bacteria 0 /HPF Urine Test Negative Urine Opiates Screen Neg Urine Methadone Screen Neg Urine Barbiturates Neg Urine Phencyclidine Screen Neg Urine Amphetamine/Methamphetamine Neg Urine Benzodiazepines Screen Neg Urine Cocaine Screen Neg Urine Cannabinoids Screen Neg Urine Ethyl Alcohol Pos White Blood Count 7.6 x10^3/uL Red Blood Count 3.82 x10^6/uL Hemoglobin 13.4 g/dL Hematocrit 38.5 % Mean Corpuscular Volume 101 fL Mean Corpuscular Hemoglobin 35 pg Mean Corpuscular Hemoglobin Concent 35 g/dL Red Cell Distribution Width 18.7 % Platelet Count 248 x10^3/uL Neutrophils (%) (Auto) 56 % Lymphocytes (%) (Auto) 36 % Monocytes (%) (Auto) 7 % Eosinophils (%) (Auto) 1 % Basophils (%) (Auto) 1 % Neutrophils # (Auto) 4.2 x10^3/uL Lymphocytes # (Auto) 2.8 x10^3/uL Monocytes # (Auto) 0.5 x10^3/uL Eosinophils # (Auto) 0.1 x10^3/uL Basophils # (Auto) 0.1 x10^3/uL Sodium Level 141 mmol/L Potassium Level 2.7 mmol/L Chloride Level 96 mmol/L Carbon Dioxide Level 27 mmol/L Anion Gap 18 Blood Urea Nitrogen 3 mg/dL Creatinine 0.8 mg/dL Estimated GFR (Cockcroft-Gault) 81.6 BUN/Creatinine Ratio 4 Glucose Level 80 mg/dL Calcium Level 8.2 mg/dL Total Bilirubin 0.4 mg/dL Aspartate Amino Transf (AST/SGOT) 108 U/L Alanine Aminotransferase (ALT/SGPT) 39 U/L Alkaline Phosphatase 172 U/L Total Protein 8.3 g/dL Albumin 3.3 g/dL Albumin/Globulin Ratio 0.7 Lipase 189 U/L Ethyl Alcohol Level 378 mg/dL Current Medications Medications (Trade) Dose Ordered Sig/Deborah Route PRN Reason Start Time Stop Time Status Last Admin Dose Admin Sodium Chloride 1,000 ml @ 999 mls/hr 1X ONCE IV 03/06/22 18:00 03/06/22 19:00 DC Metoclopramide HCl (Reglan Vial) 10 mg 1X ONCE IVP 03/06/22 18:00 03/06/22 18:11 DC 03/06/22 18:13 Fentanyl Citrate (Fentanyl 2ml Vial) 50 mcg 1X ONCE IVP 03/06/22 18:00 03/06/22 18:11 DC 03/06/22 18:18 Metoclopramide HCl (Reglan Vial) 10 mg STK-MED ONCE .ROUTE 03/06/22 18:10 03/06/22 18:10 DC Fentanyl Citrate (Fentanyl 2ml Vial) 100 mcg STK-MED ONCE .ROUTE 03/06/22 18:11 03/06/22 18:11 DC Hydromorphone HCl (Dilaudid) 1 mg 1X ONCE IVP 03/06/22 19:00 03/06/22 19:02 DC 03/06/22 19:11 Laboratory Tests Test 03/06/22 17:40 Urine Opiates Screen Neg (NEG) Urine Methadone Screen Neg (NEG) Urine Barbiturates Neg (NEG) Urine Phencyclidine Screen Neg (NEG) Urine Amphetamine/Methamphetamine Neg (NEG) Urine Benzodiazepines Screen Neg (NEG) Urine Cocaine Screen Neg (NEG) Urine Cannabinoids Screen Neg (NEG) Urine Ethyl Alcohol Pos (NEG) Vital Signs: Vital Signs Date Time Temp Pulse Resp B/P (MAP) Pulse Ox O2 Delivery O2 Flow Rate FiO2 03/06/22 20:37 98.8 66 18 189/77 (114) 94 98.8 03/06/22 19:11 18 97 03/06/22 18:18 20 99 03/06/22 17:37 98.6 114 22 161/119 (133) 98 Room Air 98.6 Vital Signs Date Time Temp Pulse Resp B/P (MAP) Pulse Ox O2 Delivery O2 Flow Rate FiO2 03/06/22 18:18 20 99 03/06/22 17:37 98.6 114 161/119 (133) Room Air 98.6 EKG: EKG: [] Radiology/Procedures: Radiology/Procedures: [] Course & Med Decision Making: Course & Med Decision Making Pertinent Labs and Imaging studies reviewed. (See chart for details) [address] Jorgensen regarding this patient, and he is agreeable to admitting her for pain control and for alcohol withdrawal management. I will also obtain a CT scan without contrast to evaluate the pancreatic cyst on her pancreas but that will not affect her admission status at this time. Patient has been given multiple doses of pain medication without relief. Patient is agreeable to admitting. Dragon Disclaimer: Dragon Disclaimer: This electronic medical record was generated, in whole or in part, using a voice recognition dictation system. Departure Departure Impression: Primary Impression: Abdominal pain Qualified Codes: R10.12 - Left upper quadrant pain Additional Impressions: Alcohol intoxication Qualified Codes: F10.929 - Alcohol use, unspecified with intoxication, unspecified Pancreatitis, alcoholic, acute Qualified Codes: K85.20 - Alcohol induced acute pancreatitis without necrosis or infection Disposition: 09 ADMITTED INPATIENT Admitting Physician: ISAI Condition: GUARDED Referrals: DAPHNE BLOOM (PCP) KEVIN GRANT APRN March 06, 2022 18:35
[2022-03-06] MEDS ORDERED: HYDROmorphone 2 MG/ML INJ. IVP ONE (19:00)
[2022-03-06 19:06] LABS: ALBUMIN 3.3 g/dL (3.4-5.0); ALBUMIN/GLOBULIN RATIO 0.7 (1.0-1.7); CALCIUM 8.2 mg/dL (8.5-10.1); CREATININE 0.8 mg/dL (0.6-1.0); GFR 81.6; TOTAL BILIRUBIN 0.4 mg/dL (0.2-1.0); TOTAL PROTEIN 8.3 g/dL (6.4-8.2)
[2022-03-06 19:09] LABS: POTASSIUM 2.7 mmol/L (3.5-5.1)
[2022-03-06 20:36] LABS: U PREG PATIENT NEGATIVE (NEG)
[2022-03-06 21:15] VITALS: BP 137/94
--- NOTE | 2022-03-06 22:31 | RAD ---
Exam: CT of abdomen and pelvis without contrast INDICATION: Abdominal pain, history of pancreatic cyst, Back pain TECHNIQUE: Sequential axial images through the abdomen and pelvis obtained without IV contrast. Sagit uzma and coronal reformatted images were reconstructed from the axial data and reviewed. Exposure: One or more of the following in the visualized dose reduction techniques were utilized for this examination: 1. Automated exposure control 2. Adjustment of the MA and/or KV according to patient size 3. Use of iterative of reconstructive technique Comparisons: 12/06/2021 FINDINGS: Heart size is normal. No pericardial effusion. Visualized lung bases are clear. No pleural effusion. Evaluation solid organs is limited secondary to noncontrast technique. Diffuse hepatic steatosis. Spleen, pancreas, and adrenals are unremarkable. Cystic lesion at the panc reatic tail not well assessed on this study Gallbladder surgically absent. There is redemonstration of a large subcapsular left renal fluid collection measuring approximately 9 .3 x 6.0 cm in transverse dimension. Collection is similar to mildly increased in size when compared to the prior study. There is mild surrounding perinephric fat stranding. No hydronephrosis. No renal or ureteral calculi. Bladder is partially distended and not well evaluated. Uterus is not enlarged. No abnormal adnexal ma ss. Large and small bowel are unremarkable. Appendix is absent. Small bowel is unremarkable. No free intr a-abdominal air or fluid. No obstruction. Abdominal aorta has normal course and caliber. Bowel vasculature is patent. No enlarged intra-abdominal lymph nodes are identified. No suspicious osseous lesions or acute fractures. IMPRESSION: 1. Large subcapsular fluid collection at the left kidney measuring 9.3 x 6.0 cm transverse dimension which appears similar to mildly increased in size compared to study in November. There is adjacent i nflammatory changes. Findings are nonspecific could relate to hematoma or infection. 2. Diffuse hepatic steatosis. Electronically signed by: Pedro Gustafson MD (03/06/2022 10:28 PM) [facility]
[2022-03-06 23:00] VITALS: BP 123/79
[2022-03-07] MEDS ORDERED: traMADol 50 MG TABLET PO ONE (00:30)
[2022-03-07 03:00] VITALS: BP 144/89
[2022-03-07 07:00] VITALS: BP 127/42
[2022-03-07] MEDS ORDERED: diphenhydrAMINE HCL 25 MG CAPSULE PO PRN ×2 (08:45)
[2022-03-07] MEDS ORDERED: ACETAMINOPHEN 325 MG TABLET. PO PRN (08:45)
[2022-03-07] MEDS ORDERED: diphenhydrAMINE 50 MG/ML VIAL IVP PRN ×2 (08:45)
[2022-03-07] MEDS ORDERED: SENNOSIDES 8.6 MG TABLET PO PRN (08:45)
[2022-03-07] MEDS ORDERED: DOCUSATE SODIUM 100 MG CAPSULE. PO PRN (08:45)
[2022-03-07] MEDS ORDERED: cloNIDine HCL 0.1 MG TABLET PO PRN (08:45)
[2022-03-07] MEDS ORDERED: DEXTROSE 50% 25 GM / 50ML DISP.SYRIN. IV PRN (08:45)
[2022-03-07] MEDS ORDERED: ZOLPIDEM 5 MG TABLET. PO PRN (08:45)
[2022-03-07] MEDS ORDERED: LORazepam 0.5 MG TABLET PO PRN (08:45)
[2022-03-07] MEDS ORDERED: HALOPERIDOL LACTATE 5 MG/ML VIAL. IVP PRN (08:45)
--- NOTE | 2022-03-07 08:53 | PDOC1 ---
History and Physical Date of Service: DOS: DATE: 03/07/22 TIME: 08:37 Chief Complaint: Chief Complain: Abdominal pain History of Present Illness: HPI: 36-year-old female who presents today via [facility] for abdominal pain. Patient states that she has a history of chronic pancreatitis and that over the last couple of days she has increased her alcohol intake due to her abdominal pain. Patient states that she also has a history of a pseudocyst on her pancreas and that she sees Dr. Mckeon with gastrointestinal specialist and that she has a scheduled procedure in March to have the pseudocyst drained, she states that she continues to have increased pain. Patient states she had 5 beers today she states yesterday she drank quite a bit as well as took OxyContin for her pain. Patient states she has had nausea, vomiting and fever. EMS states that when they got to the home they found multiple empty liquor containers throughout the house, patient also has a small child with her and the child was unsupervised due to the intoxication of the mom. Past Medical/Surgical History: PMH/PSH: Past Medical History: Anxiety, Depression, Hypertension, Liver Disease, Pancreatitis, PTSD Past Surgical History: Cholecystectomy, BACK Smoking Status: Current Every Day Smoker Alcohol Use: Heavy Allergies: Allergies: Coded Allergies: No Known Drug Allergies (Unverified , 08/10/21) Family History: Family History: Reviewed with no relative findings in the chart Social History: Social History: Smoking Status: Current Every Day Smoker Alcohol Use: Heavy Current Medications: Current Medications Current Medications Sodium Chloride 1,000 ml @ 999 mls/hr 1X ONCE IV ; Start 03/06/22 at 18:00; Stop 03/06/22 at 19:00; Status DC Metoclopramide HCl (Reglan Vial) 10 mg 1X ONCE IVP Last administered on 03/06/22at 18:13; Start 03/06/22 at 18:00; Stop 03/06/22 at 18:11; Status DC Fentanyl Citrate (Fentanyl 2ml Vial) 50 mcg 1X ONCE IVP Last administered on 03/06/22at 18:18; Start 03/06/22 at 18:00; Stop 03/06/22 at 18:11; Status DC Metoclopramide HCl (Reglan Vial) 10 mg STK-MED ONCE .ROUTE ; Start 03/06/22 at 18:10; Stop 03/06/22 at 18:10; Status DC Fentanyl Citrate (Fentanyl 2ml Vial) 100 mcg STK-MED ONCE .ROUTE ; Start 03/06/22 at 18:11; Stop 03/06/22 at 18:11; Status DC Hydromorphone HCl (Dilaudid) 1 mg 1X ONCE IVP Last administered on 03/06/22at 19:11; Start 03/06/22 at 19:00; Stop 03/06/22 at 19:02; Status DC Tramadol HCl (Ultram) 50 mg 1X ONCE PO Last administered on 03/07/22at 00:19; Start 03/07/22 at 00:30; Stop 03/07/22 at 00:31; Status DC Active Scripts Active Hydrocodone-Apap 5-325 (Hydrocodone Bit/Acetaminophen) 1 Tab Tablet 1 Tab PO PRN Q6HRS PRN 10 Days ROS: Review of Systems Review of System REVIEW OF SYSTEMS: GENERAL: Denies weakness SKIN: No bruising, hair changes or rashes. EYES: No blurred, double or loss of vision. NOSE AND THROAT: No history of nosebleeds, hoarseness or sore throat. HEART: No history of palpitations, chest pain or shortness of breath on exertion. LUNGS: Denies cough, hemoptysis, wheezing or shortness of breath. GASTROINTESTINAL: Positive for abdominal pain GENITOURINARY: No history of frequency, urgency, hesitancy or nocturia. NEUROLOGIC: Denies history of numbness, tingling, or tremor. PSYCHIATRIC: No history of panic, anxiety or depression. ENDOCRINE: No history of heat or cold intolerance, polyuria or polydipsia. EXTREMITIES: Denies joint pain, pain on walking or stiffness. Physical Exam: Vital Signs: Vital Signs Date Time Temp Pulse Resp B/P (MAP) Pulse Ox O2 Delivery O2 Flow Rate FiO2 03/07/22 03:00 98.2 83 14 144/89 (107) 96 Room Air 98.2 Physcial Exam: General: Well developed, well nourished, no acute distress, well appearing HEENT: Pupils equally round and reactive to light, EOMI, no discharge, normal conjunctiva Neck: Supple, no nuchal rigidity, no JVD, trachea midline, no tenderness Cardiac: RRR, no murmurs, no gallops, no rubs Chest/Lungs: CTAB, no wheeze, no rhonchi, no crackles Abdomen: soft, non-distended, no guarding, no peritoneal signs, tender to left upper quadrant and guarding Back: No tenderness Extremities: no edema, pulses intact, non-tender,capillary refill <3 sec bilateral upper and lower extremities, Neuro: Alert and oriented x 4, no focal deficits, normal speech Labs: Labs: Laboratory Tests Test 03/06/22 17:40 03/06/22 18:00 Urine Collection Type Unknown Urine Color (Auto) Colorless Urine Turbidity Clear Urine pH (Auto) 7.0 (<5.0-8.0) Urine Specific [place] 1.004 (1.000-1.030) Urine Protein (Auto) Negative mg/dL (Negative) Urine Glucose (Auto)(UA) Negative mg/dL (Negative) Urine Ketones (Auto) Negative mg/dL (Negative) Urine Blood (Auto) Small (Negative) Urine Nitrite Negative (Negative) Urine Bilirubin (Auto) Negative (Negative) Urine Urobilinogen (Auto) Normal mg/dL (Normal) Urine Leukocyte Esterase (Auto) Negative (Negative) Urine RBC 1-2 /HPF (0-2) Urine WBC 0 /HPF (0-4) Urine Squamous Epithelial Cells Occ /LPF Urine Bacteria 0 /HPF (0-FEW) Urine Test Negative (NEG) Urine Opiates Screen Neg (NEG) Urine Methadone Screen Neg (NEG) Urine Barbiturates Neg (NEG) Urine Phencyclidine Screen Neg (NEG) Urine Amphetamine/Methamphetamine Neg (NEG) Urine Benzodiazepines Screen Neg (NEG) Urine Cocaine Screen Neg (NEG) Urine Cannabinoids Screen Neg (NEG) Urine Ethyl Alcohol Pos (NEG) White Blood Count 7.6 x10^3/uL (4.0-11.0) Red Blood Count 3.82 x10^6/uL (3.50-5.40) Hemoglobin 13.4 g/dL (12.0-15.5) Hematocrit 38.5 % (36.0-47.0) Mean Corpuscular Volume 101 fL (79-100) Mean Corpuscular Hemoglobin 35 pg (25-35) Mean Corpuscular Hemoglobin Concent 35 g/dL (31-37) Red Cell Distribution Width 18.7 % (11.5-14.5) Platelet Count 248 x10^3/uL (140-400) Neutrophils (%) (Auto) 56 % (31-73) Lymphocytes (%) (Auto) 36 % (24-48) Monocytes (%) (Auto) 7 % (0-9) Eosinophils (%) (Auto) 1 % (0-3) Basophils (%) (Auto) 1 % (0-3) Neutrophils # (Auto) 4.2 x10^3/uL (1.8-7.7) Lymphocytes # (Auto) 2.8 x10^3/uL (1.0-4.8) Monocytes # (Auto) 0.5 x10^3/uL (0.0-1.1) Eosinophils # (Auto) 0.1 x10^3/uL (0.0-0.7) Basophils # (Auto) 0.1 x10^3/uL (0.0-0.2) Sodium Level 141 mmol/L (136-145) Potassium Level 2.7 mmol/L (3.5-5.1) Chloride Level 96 mmol/L (98-107) Carbon Dioxide Level 27 mmol/L (21-32) Anion Gap 18 (6-14) Blood Urea Nitrogen 3 mg/dL (7-20) Creatinine 0.8 mg/dL (0.6-1.0) Estimated GFR (Cockcroft-Gault) 81.6 BUN/Creatinine Ratio 4 (6-20) Glucose Level 80 mg/dL (70-99) Calcium Level 8.2 mg/dL (8.5-10.1) Total Bilirubin 0.4 mg/dL (0.2-1.0) Aspartate Amino Transf (AST/SGOT) 108 U/L (15-37) Alanine Aminotransferase (ALT/SGPT) 39 U/L (14-59) Alkaline Phosphatase 172 U/L (46-116) Total Protein 8.3 g/dL (6.4-8.2) Albumin 3.3 g/dL (3.4-5.0) Albumin/Globulin Ratio 0.7 (1.0-1.7) Lipase 189 U/L (73-393) Ethyl Alcohol Level 378 mg/dL (0-10) Laboratory Tests Test 03/06/22 17:40 03/06/22 18:00 Urine Collection Type Unknown Urine Color (Auto) Colorless Urine Turbidity Clear Urine pH (Auto) 7.0 (<5.0-8.0) Urine Specific [place] 1.004 (1.000-1.030) Urine Protein (Auto) Negative mg/dL (Negative) Urine Glucose (Auto)(UA) Negative mg/dL (Negative) Urine Ketones (Auto) Negative mg/dL (Negative) Urine Blood (Auto) Small (Negative) Urine Nitrite Negative (Negative) Urine Bilirubin (Auto) Negative (Negative) Urine Urobilinogen (Auto) Normal mg/dL (Normal) Urine Leukocyte Esterase (Auto) Negative (Negative) Urine RBC 1-2 /HPF (0-2) Urine WBC 0 /HPF (0-4) Urine Squamous Epithelial Cells Occ /LPF Urine Bacteria 0 /HPF (0-FEW) Urine Test Negative (NEG) Urine Opiates Screen Neg (NEG) Urine Methadone Screen Neg (NEG) Urine Barbiturates Neg (NEG) Urine Phencyclidine Screen Neg (NEG) Urine Amphetamine/Methamphetamine Neg (NEG) Urine Benzodiazepines Screen Neg (NEG) Urine Cocaine Screen Neg (NEG) Urine Cannabinoids Screen Neg (NEG) Urine Ethyl Alcohol Pos (NEG) White Blood Count 7.6 x10^3/uL (4.0-11.0) Red Blood Count 3.82 x10^6/uL (3.50-5.40) Hemoglobin 13.4 g/dL (12.0-15.5) Hematocrit 38.5 % (36.0-47.0) Mean Corpuscular Volume 101 fL (79-100) Mean Corpuscular Hemoglobin 35 pg (25-35) Mean Corpuscular Hemoglobin Concent 35 g/dL (31-37) Red Cell Distribution Width 18.7 % (11.5-14.5) Platelet Count 248 x10^3/uL (140-400) Neutrophils (%) (Auto) 56 % (31-73) Lymphocytes (%) (Auto) 36 % (24-48) Monocytes (%) (Auto) 7 % (0-9) Eosinophils (%) (Auto) 1 % (0-3) Basophils (%) (Auto) 1 % (0-3) Neutrophils # (Auto) 4.2 x10^3/uL (1.8-7.7) Lymphocytes # (Auto) 2.8 x10^3/uL (1.0-4.8) Monocytes # (Auto) 0.5 x10^3/uL (0.0-1.1) Eosinophils # (Auto) 0.1 x10^3/uL (0.0-0.7) Basophils # (Auto) 0.1 x10^3/uL (0.0-0.2) Sodium Level 141 mmol/L (136-145) Potassium Level 2.7 mmol/L (3.5-5.1) Chloride Level 96 mmol/L (98-107) Carbon Dioxide Level 27 mmol/L (21-32) Anion Gap 18 (6-14) Blood Urea Nitrogen 3 mg/dL (7-20) Creatinine 0.8 mg/dL (0.6-1.0) Estimated GFR (Cockcroft-Gault) 81.6 BUN/Creatinine Ratio 4 (6-20) Glucose Level 80 mg/dL (70-99) Calcium Level 8.2 mg/dL (8.5-10.1) Total Bilirubin 0.4 mg/dL (0.2-1.0) Aspartate Amino Transf (AST/SGOT) 108 U/L (15-37) Alanine Aminotransferase (ALT/SGPT) 39 U/L (14-59) Alkaline Phosphatase 172 U/L (46-116) Total Protein 8.3 g/dL (6.4-8.2) Albumin 3.3 g/dL (3.4-5.0) Albumin/Globulin Ratio 0.7 (1.0-1.7) Lipase 189 U/L (73-393) Ethyl Alcohol Level 378 mg/dL (0-10) Images: Images PROCEDURE: CT ABDOMEN PELVIS WO CONTRAST Exam: CT of abdomen and pelvis without contrast INDICATION: Abdominal pain, history of pancreatic cyst, Back pain TECHNIQUE: Sequential axial images through the abdomen and pelvis obtained without IV contrast. Sagittal and coronal reformatted images were reconstructed from the axial data and reviewed. Exposure: One or more of the following in the visualized dose reduction techniques were utilized for this examination: 1. Automated exposure control 2. Adjustment of the MA and/or KV according to patient size 3. Use of iterative of reconstructive technique Comparisons: 12/06/2021 FINDINGS: Heart size is normal. No pericardial effusion. Visualized lung bases are clear. No pleural effusion. Evaluation solid organs is limited secondary to noncontrast technique. Diffuse hepatic steatosis. Spleen, pancreas, and adrenals are unremarkable. Cystic lesion at the pancreatic tail not well assessed on this study Gallbladder surgically absent. There is redemonstration of a large subcapsular left renal fluid collection measuring approximately 9.3 x 6.0 cm in transverse dimension. Collection is similar to mildly increased in size when compared to the prior study. There is mild surrounding perinephric fat stranding. No hydronephrosis. No renal or ureteral calculi. Bladder is partially distended and not well evaluated. Uterus is not enlarged. No abnormal adnexal mass. Large and small bowel are unremarkable. Appendix is absent. Small bowel is unremarkable. No free intra-abdominal air or fluid. No obstruction. Abdominal aorta has normal course and caliber. Bowel vasculature is patent. No enlarged intra-abdominal lymph nodes are identified. No suspicious osseous lesions or acute fractures. IMPRESSION: 1. Large subcapsular fluid collection at the left kidney measuring 9.3 x 6.0 cm transverse dimension which appears similar to mildly increased in size compared to study in November. There is adjacent inflammatory changes. Findings are nonspecific could relate to hematoma or infection. 2. Diffuse hepatic steatosis. Assessment/Plan Assessment/Plan Acute alcohol intoxication Acute abdominal pain due to large left renal subcapsular fluid Severe hypokalemia suggestive of volume depletion Intractable nausea vomiting Elevated AST to ALT ratio suggestive of chronic alcohol use History of pancreatic pseudocyst History of chronic pancreatitis Admit to hospitalist service for further management CIWA protocol Urology consult IR consult GI consult Continue IV fluids PO and IV pain control IV electrolyte replacement as needed Lovenox for DVT prophylaxis Protonix GI prophylaxis ADA diet CODE STATUS full Discussed with RN and SW Disposition pending surgery and IR evaluation DPOA: Father Justifications for Admission Other Justification ERIC ACEVEDO MD March 07, 2022 08:53
[2022-03-07] MEDS: ENOXAPARIN 40 MG/0.4 ML SYRINGE. SQ SCH (09:00)
[2022-03-07] MEDS: POTASSIUM CHLORIDE 20 MEQ TABLET.ER. PO SCH ×2 (09:04→21:58)
[2022-03-07] MEDS: MORPHINE SULFATE 2 MG/ML INJ. IVP PRN ×6 (09:04→22:28)
[2022-03-07] MEDS: IV NORMAL SALINE 1000ML BAG 1,000 ML IV SCH ×3 (09:05→22:28)
[2022-03-07] MEDS: POTASSIUM CHLORIDE 10MEQ 100 ML IV SCH ×4 (09:42→16:13)
[2022-03-07] MEDS: oxyCODONE/APAP 5/325 1 TAB TABLET PO PRN ×3 (09:42→23:27)
[2022-03-07] MEDS: PANTOPRAZOLE IV PUSH 40 MG VIAL. IVP SCH (09:43)
[2022-03-07] MEDS: ONDANSETRON PF 4 MG/2 ML VIAL. IVP PRN ×3 (10:03→22:28)
[2022-03-07] MEDS: MORPHINE SULFATE 2 MG/ML INJ. IV PRN (10:04)
[2022-03-07] MEDS: THIAMINE INJ 300 MG in IV DEXTROSE 5% 50 ML IV SCH (10:05)
--- NOTE | 2022-03-07 10:22 | PDOC ---
PROGRESS NOTES Date of Service DATE: 03/07/22 TIME: 10:18 Subjective Subjective chart reviewed Objective Objective Vital Signs Date Time Temp Pulse Resp B/P (MAP) Pulse Ox O2 Delivery O2 Flow Rate FiO2 03/07/22 10:04 18 Room Air 03/07/22 07:00 97.6 86 127/42 (70) 92 97.6 Intake and Output 03/07/22 07:00 Intake Total 0 ml Balance 0 ml Intake Oral 0 ml Assessment Assessment Problems Medical Problems: (1) Abdominal pain Status: Acute (2) Alcohol intoxication Status: Acute (3) Pancreatitis, alcoholic, acute Status: Acute Plan Plan of Care Review of the records show a subcapsular renal fluid collection; recommend Urology consultation which has been placed. Defer to them for management, please call if needed for anything else Comment Review of Relevant I have reviewed the following items jairo (where applicable) has been applied. Labs Laboratory Tests Test 03/06/22 17:40 03/06/22 18:00 Urine Collection Type Unknown Urine Color (Auto) Colorless Urine Turbidity Clear Urine pH (Auto) 7.0 (<5.0-8.0) Urine Specific [place] 1.004 (1.000-1.030) Urine Protein (Auto) Negative mg/dL (Negative) Urine Glucose (Auto)(UA) Negative mg/dL (Negative) Urine Ketones (Auto) Negative mg/dL (Negative) Urine Blood (Auto) Small (Negative) Urine Nitrite Negative (Negative) Urine Bilirubin (Auto) Negative (Negative) Urine Urobilinogen (Auto) Normal mg/dL (Normal) Urine Leukocyte Esterase (Auto) Negative (Negative) Urine RBC 1-2 /HPF (0-2) Urine WBC 0 /HPF (0-4) Urine Squamous Epithelial Cells Occ /LPF Urine Bacteria 0 /HPF (0-FEW) Urine Test Negative (NEG) Urine Opiates Screen Neg (NEG) Urine Methadone Screen Neg (NEG) Urine Barbiturates Neg (NEG) Urine Phencyclidine Screen Neg (NEG) Urine Amphetamine/Methamphetamine Neg (NEG) Urine Benzodiazepines Screen Neg (NEG) Urine Cocaine Screen Neg (NEG) Urine Cannabinoids Screen Neg (NEG) Urine Ethyl Alcohol Pos (NEG) White Blood Count 7.6 x10^3/uL (4.0-11.0) Red Blood Count 3.82 x10^6/uL (3.50-5.40) Hemoglobin 13.4 g/dL (12.0-15.5) Hematocrit 38.5 % (36.0-47.0) Mean Corpuscular Volume 101 fL (79-100) Mean Corpuscular Hemoglobin 35 pg (25-35) Mean Corpuscular Hemoglobin Concent 35 g/dL (31-37) Red Cell Distribution Width 18.7 % (11.5-14.5) Platelet Count 248 x10^3/uL (140-400) Neutrophils (%) (Auto) 56 % (31-73) Lymphocytes (%) (Auto) 36 % (24-48) Monocytes (%) (Auto) 7 % (0-9) Eosinophils (%) (Auto) 1 % (0-3) Basophils (%) (Auto) 1 % (0-3) Neutrophils # (Auto) 4.2 x10^3/uL (1.8-7.7) Lymphocytes # (Auto) 2.8 x10^3/uL (1.0-4.8) Monocytes # (Auto) 0.5 x10^3/uL (0.0-1.1) Eosinophils # (Auto) 0.1 x10^3/uL (0.0-0.7) Basophils # (Auto) 0.1 x10^3/uL (0.0-0.2) Sodium Level 141 mmol/L (136-145) Potassium Level 2.7 mmol/L (3.5-5.1) Chloride Level 96 mmol/L (98-107) Carbon Dioxide Level 27 mmol/L (21-32) Anion Gap 18 (6-14) Blood Urea Nitrogen 3 mg/dL (7-20) Creatinine 0.8 mg/dL (0.6-1.0) Estimated GFR (Cockcroft-Gault) 81.6 BUN/Creatinine Ratio 4 (6-20) Glucose Level 80 mg/dL (70-99) Calcium Level 8.2 mg/dL (8.5-10.1) Total Bilirubin 0.4 mg/dL (0.2-1.0) Aspartate Amino Transf (AST/SGOT) 108 U/L (15-37) Alanine Aminotransferase (ALT/SGPT) 39 U/L (14-59) Alkaline Phosphatase 172 U/L (46-116) Total Protein 8.3 g/dL (6.4-8.2) Albumin 3.3 g/dL (3.4-5.0) Albumin/Globulin Ratio 0.7 (1.0-1.7) Lipase 189 U/L (73-393) Ethyl Alcohol Level 378 mg/dL (0-10) Laboratory Tests Test 03/06/22 17:40 03/06/22 18:00 Urine Collection Type Unknown Urine Color (Auto) Colorless Urine Turbidity Clear Urine pH (Auto) 7.0 (<5.0-8.0) Urine Specific [place] 1.004 (1.000-1.030) Urine Protein (Auto) Negative mg/dL (Negative) Urine Glucose (Auto)(UA) Negative mg/dL (Negative) Urine Ketones (Auto) Negative mg/dL (Negative) Urine Blood (Auto) Small (Negative) Urine Nitrite Negative (Negative) Urine Bilirubin (Auto) Negative (Negative) Urine Urobilinogen (Auto) Normal mg/dL (Normal) Urine Leukocyte Esterase (Auto) Negative (Negative) Urine RBC 1-2 /HPF (0-2) Urine WBC 0 /HPF (0-4) Urine Squamous Epithelial Cells Occ /LPF Urine Bacteria 0 /HPF (0-FEW) Urine Test Negative (NEG) Urine Opiates Screen Neg (NEG) Urine Methadone Screen Neg (NEG) Urine Barbiturates Neg (NEG) Urine Phencyclidine Screen Neg (NEG) Urine Amphetamine/Methamphetamine Neg (NEG) Urine Benzodiazepines Screen Neg (NEG) Urine Cocaine Screen Neg (NEG) Urine Cannabinoids Screen Neg (NEG) Urine Ethyl Alcohol Pos (NEG) White Blood Count 7.6 x10^3/uL (4.0-11.0) Red Blood Count 3.82 x10^6/uL (3.50-5.40) Hemoglobin 13.4 g/dL (12.0-15.5) Hematocrit 38.5 % (36.0-47.0) Mean Corpuscular Volume 101 fL (79-100) Mean Corpuscular Hemoglobin 35 pg (25-35) Mean Corpuscular Hemoglobin Concent 35 g/dL (31-37) Red Cell Distribution Width 18.7 % (11.5-14.5) Platelet Count 248 x10^3/uL (140-400) Neutrophils (%) (Auto) 56 % (31-73) Lymphocytes (%) (Auto) 36 % (24-48) Monocytes (%) (Auto) 7 % (0-9) Eosinophils (%) (Auto) 1 % (0-3) Basophils (%) (Auto) 1 % (0-3) Neutrophils # (Auto) 4.2 x10^3/uL (1.8-7.7) Lymphocytes # (Auto) 2.8 x10^3/uL (1.0-4.8) Monocytes # (Auto) 0.5 x10^3/uL (0.0-1.1) Eosinophils # (Auto) 0.1 x10^3/uL (0.0-0.7) Basophils # (Auto) 0.1 x10^3/uL (0.0-0.2) Sodium Level 141 mmol/L (136-145) Potassium Level 2.7 mmol/L (3.5-5.1) Chloride Level 96 mmol/L (98-107) Carbon Dioxide Level 27 mmol/L (21-32) Anion Gap 18 (6-14) Blood Urea Nitrogen 3 mg/dL (7-20) Creatinine 0.8 mg/dL (0.6-1.0) Estimated GFR (Cockcroft-Gault) 81.6 BUN/Creatinine Ratio 4 (6-20) Glucose Level 80 mg/dL (70-99) Calcium Level 8.2 mg/dL (8.5-10.1) Total Bilirubin 0.4 mg/dL (0.2-1.0) Aspartate Amino Transf (AST/SGOT) 108 U/L (15-37) Alanine Aminotransferase (ALT/SGPT) 39 U/L (14-59) Alkaline Phosphatase 172 U/L (46-116) Total Protein 8.3 g/dL (6.4-8.2) Albumin 3.3 g/dL (3.4-5.0) Albumin/Globulin Ratio 0.7 (1.0-1.7) Lipase 189 U/L (73-393) Ethyl Alcohol Level 378 mg/dL (0-10) Medications Current Medications Sodium Chloride 1,000 ml @ 999 mls/hr 1X ONCE IV ; Start 03/06/22 at 18:00; Stop 03/06/22 at 19:00; Status DC Metoclopramide HCl (Reglan Vial) 10 mg 1X ONCE IVP Last administered on 03/06/22at 18:13; Start 03/06/22 at 18:00; Stop 03/06/22 at 18:11; Status DC Fentanyl Citrate (Fentanyl 2ml Vial) 50 mcg 1X ONCE IVP Last administered on 03/06/22at 18:18; Start 03/06/22 at 18:00; Stop 03/06/22 at 18:11; Status DC Metoclopramide HCl (Reglan Vial) 10 mg STK-MED ONCE .ROUTE ; Start 03/06/22 at 18:10; Stop 03/06/22 at 18:10; Status DC Fentanyl Citrate (Fentanyl 2ml Vial) 100 mcg STK-MED ONCE .ROUTE ; Start 03/06/22 at 18:11; Stop 03/06/22 at 18:11; Status DC Hydromorphone HCl (Dilaudid) 1 mg 1X ONCE IVP Last administered on 03/06/22at 19:11; Start 03/06/22 at 19:00; Stop 03/06/22 at 19:02; Status DC Tramadol HCl (Ultram) 50 mg 1X ONCE PO Last administered on 03/07/22at 00:19; Start 03/07/22 at 00:30; Stop 03/07/22 at 00:31; Status DC Thiamine HCl 300 mg/Dextrose 53 ml @ 100 mls/hr DAILY IV Last administered on 03/07/22at 10:05; Start 03/07/22 at 09:00; Stop 03/11/22 at 09:32 Multivitamins (Thera M Plus) 1 tab DAILY PO ; Start 03/12/22 at 09:00 Folic Acid (Folic Acid) 1 mg DAILY PO ; Start 03/12/22 at 09:00 Lorazepam (Ativan) 4 mg PRN Q1HR PRN PO For CIWA 8-14; Start 03/07/22 at 08:45 Lorazepam (Ativan) 8 mg PRN Q1HR PRN PO For CIWA 15 or greater; Start 03/07/22 at 08:45 Lorazepam (Ativan Inj) 2 mg PRN Q1HR PRN IV For CIWA 8-14 Last administered on 03/07/22at 10:04; Start 03/07/22 at 08:45 Lorazepam (Ativan Inj) 4 mg PRN Q1HR PRN IV For CIWA 15 or greater; Start 03/07/22 at 08:45 Haloperidol Lactate (Haldol Inj) 5 mg PRN Q4HRS PRN IVP Hallucinatns,Confusn,Delirium; Start 03/07/22 at 08:45 Diphenhydramine HCl (Benadryl) 25 mg PRN Q15MIN PRN IVP EPS symptoms 2'Haldol admin; Start 03/07/22 at 08:45 Clonidine HCl (Catapres) 0.1 mg PRN Q1HR PRN PO SBP > 180 or DBP > 100, MRX3; Start 03/07/22 at 08:45 Sennosides (Senna) 17.2 mg PRN BID PRN PO CONSTIPATION; Start 03/07/22 at 08:45 Docusate Sodium (Colace) 100 mg PRN DAILY PRN PO HARD STOOLS; Start 03/07/22 at 08:45 Ondansetron HCl (Zofran) 4 mg PRN Q6HRS PRN IVP NAUSEA/VOMITING, 1st CHOICE Last administered on 03/07/22at 10:03; Start 03/07/22 at 08:45 Dextrose (Dextrose 50%-Water Syringe) 12.5 gm PRN Q15MIN PRN IV SEE COMMENTS; Start 03/07/22 at 08:45 Sodium Chloride 1,000 ml @ 100 mls/hr Q10H IV Last administered on 03/07/22at 09:05; Start 03/07/22 at 08:45 Acetaminophen (Tylenol) 650 mg PRN Q4HRS PRN PO TEMP OVER 100.4F OR MILD PAIN; Start 03/07/22 at 08:45 Lorazepam (Ativan) 0.5 mg PRN Q6HRS PRN PO ANXIETY / AGITATION; Start 03/07/22 at 08:45 Lorazepam (Ativan Inj) 0.25 mg PRN Q4HRS PRN IV ANXIETY / AGITATION; Start 03/07/22 at 08:45 Enoxaparin Sodium (Lovenox 40mg Syringe) 40 mg Q24H SQ ; Start 03/07/22 at 09:00 Oxycodone/ Acetaminophen (Percocet 5/325) 1 tab PRN Q4HRS PRN PO MILD PAIN, 1ST CHOICE Last administered on 03/07/22at 09:42; Start 03/07/22 at 08:45 Morphine Sulfate (Morphine Sulfate) 1 mg PRN Q1HR PRN IV PAIN Last administered on 03/07/22at 10:04; Start 03/07/22 at 08:45 Morphine Sulfate (Morphine Sulfate) 2 mg PRN Q2HR PRN IVP SEVERE PAIN 7-10 Last administered on 03/07/22at 09:04; Start 03/07/22 at 08:45; Stop 03/08/22 at 08:44 Prochlorperazine Edisylate (Compazine) 10 mg PRN Q6HRS PRN IV NAUSEA/VOMITING, 2nd CHOICE; Start 03/07/22 at 08:45 Diphenhydramine HCl (Benadryl) 25 mg PRN Q6HRS PRN IVP ITCHING; Start 03/07/22 at 08:45 Diphenhydramine HCl (Benadryl) 25 mg PRN Q6HRS PRN PO ITCHING; Start 03/07/22 at 08:45 Diphenhydramine HCl (Benadryl) 25 mg PRN QHS PRN PO INSOMNIA, 1st CHOICE; Start 03/07/22 at 08:45 Zolpidem Tartrate (Ambien) 2.5 mg PRN QHS PRN PO INSOMNIA, 2nd CHOICE; Start 03/07/22 at 08:45 Potassium Chloride (Klor-Con) 40 meq BID PO Last administered on 03/07/22at 09:04; Start 03/07/22 at 09:00; Stop 03/08/22 at 08:59 Potassium Chloride/Water 100 ml @ 100 mls/hr Q1H IV Last administered on 03/07/22at 09:42; Start 03/07/22 at 10:00; Stop 03/07/22 at 13:59 Pantoprazole Sodium (PROTONIX VIAL for IV PUSH) 40 mg DAILYAC IVP Last administered on 03/07/22at 09:43; Start 03/07/22 at 09:00 Active Scripts Active Hydrocodone-Apap 5-325 (Hydrocodone Bit/Acetaminophen) 1 Tab Tablet 1 Tab PO PRN Q6HRS PRN 10 Days Vitals/I & O Vital Sign - Last 24 Hours 03/06/22 03/06/22 03/06/22 03/06/22 17:37 18:18 19:11 20:37 Temp 98.6 98.8 98.6 98.8 Pulse 114 66 Resp 22 20 18 18 B/P (MAP) 161/119 (133) 189/77 (114) Pulse Ox 98 99 97 94 O2 Delivery Room Air 03/06/22 03/06/22 03/06/22 03/07/22 21:10 21:15 23:00 00:19 Temp 98.1 98.0 98.1 98.0 Pulse 93 94 Resp 14 14 20 B/P (MAP) 137/94 (108) 123/79 (94) Pulse Ox 94 95 O2 Delivery Room Air Room Air Room Air 03/07/22 03/07/22 03/07/22 03/07/22 02:27 03:00 07:00 09:04 Temp 98.2 97.6 98.2 97.6 Pulse 83 86 Resp 18 14 16 B/P (MAP) 144/89 (107) 127/42 (70) Pulse Ox 96 92 O2 Delivery Room Air Room Air Room Air 03/07/22 03/07/22 09:42 10:04 Resp 18 18 O2 Delivery Room Air Room Air Intake and Output 03/06/22 03/06/22 03/07/22 15:00 23:00 07:00 Intake Total 0 ml 0 ml Balance 0 ml 0 ml Justifications for Admission Other Justification Abdominal pain and alcohol withdrawal SERENA DANIEL MD March 07, 2022 10:22
--- NOTE | 2022-03-07 10:29 | PDOC ---
Provider Note Date of Service: DATE: 03/07/22 TIME: 10:[address] reviewed left perinephric fluid collection appears to also abut tail of pancreas. The appearance is very similar to CT from 12.06.21 and 11.19.21. Patient afebrile, with normal WBC count. A hematoma would generally decrease over this timeframe. 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 Lipase currently normal... GI planning an endoscopic ultrasound eval. Given stability could consider aspiration or transgastric drainage at that time . Alternatively could aspirate the collection percutaneously, and send fluid for eval, but would not place a drain at current time given low probability of infection. Consider GI consult to get their thoughts and see how they would like to proceed. Justifications for Admission Other Justification Abdominal pain and alcohol withdrawal SERINA HARVEY MD March 07, 2022 10:29
--- NOTE | 2022-03-07 13:49 | PDOC2 ---
UROLOGY CONSULT Date of Service DATE: 03/07/22 TIME: 13:41 Reason for Consult Reason for Consult: renal fluid collection Identification/Chief Complaint Chief Complaint abdominal pain History of Present Illness Reason for Visit: 36yo female with PMH of alcohol abuse presented to ER for abdominal pain that began acutely two days ago. She has history of chronic pancreatitis and does state it is similar to this pain. She has been hospitalized for similar complaints over the past 4-5 months. In Nov 2021 she was found to have fluid collection near left kidney. This was thought to possibly be renal hematoma and conservative measures were recommended. CT this admission shows that the fluid collection has not decreased in size. Pt denies any specific flank pain. Endorses diffuse abdominal pain and low back pain. Denies dysuria, gross hematuria, fevers. IR has seen patient today and believes fluid collection may be pancreatic in origin. GI consult was recommended for possible drainage. They have not yet been consulted. Past Medical History GI: Other Psych: Anxiety, Depression Past Surgical History Past Surgical History: Cholecystectomy Family History Family History: Alcohol Abuse, High Cholestrol Social History ALCOHOL: heavy Current Medications Current Medications Current Medications Acetaminophen (Tylenol) 650 mg PRN Q4HRS PRN PO TEMP OVER 100.4F OR MILD PAIN; Start 03/07/22 at 08:45 Clonidine HCl (Catapres) 0.1 mg PRN Q1HR PRN PO SBP > 180 or DBP > 100, MRX3; Start 03/07/22 at 08:45 Dextrose (Dextrose 50%-Water Syringe) 12.5 gm PRN Q15MIN PRN IV SEE COMMENTS; Start 03/07/22 at 08:45 Diphenhydramine HCl (Benadryl) 25 mg PRN Q15MIN PRN IVP EPS symptoms 2'Haldol admin; Start 03/07/22 at 08:45 Diphenhydramine HCl (Benadryl) 25 mg PRN Q6HRS PRN IVP ITCHING; Start 03/07/22 at 08:45 Diphenhydramine HCl (Benadryl) 25 mg PRN Q6HRS PRN PO ITCHING; Start 03/07/22 at 08:45 Diphenhydramine HCl (Benadryl) 25 mg PRN QHS PRN PO INSOMNIA, 1st CHOICE; Start 03/07/22 at 08:45 Docusate Sodium (Colace) 100 mg PRN DAILY PRN PO HARD STOOLS; Start 03/07/22 at 08:45 Enoxaparin Sodium (Lovenox 40mg Syringe) 40 mg Q24H SQ ; Start 03/07/22 at 09:00 Fentanyl Citrate (Fentanyl 2ml Vial) 50 mcg 1X ONCE IVP Last administered on 03/06/22at 18:18; Start 03/06/22 at 18:00; Stop 03/06/22 at 18:11; Status DC Fentanyl Citrate (Fentanyl 2ml Vial) 100 mcg STK-MED ONCE .ROUTE ; Start 03/06/22 at 18:11; Stop 03/06/22 at 18:11; Status DC Folic Acid (Folic Acid) 1 mg DAILY PO ; Start 03/12/22 at 09:00 Haloperidol Lactate (Haldol Inj) 5 mg PRN Q4HRS PRN IVP Hallucinatns,Confusn,Delirium; Start 03/07/22 at 08:45 Hydromorphone HCl (Dilaudid) 1 mg 1X ONCE IVP Last administered on 03/06/22at 19:11; Start 03/06/22 at 19:00; Stop 03/06/22 at 19:02; Status DC Lorazepam (Ativan Inj) 0.25 mg PRN Q4HRS PRN IV ANXIETY / AGITATION; Start 03/07/22 at 08:45 Lorazepam (Ativan Inj) 2 mg PRN Q1HR PRN IV For CIWA 8-14 Last administered on 03/07/22at 12:14; Start 03/07/22 at 08:45 Lorazepam (Ativan Inj) 4 mg PRN Q1HR PRN IV For CIWA 15 or greater; Start 03/07/22 at 08:45 Lorazepam (Ativan) 0.5 mg PRN Q6HRS PRN PO ANXIETY / AGITATION; Start 03/07/22 at 08:45 Lorazepam (Ativan) 4 mg PRN Q1HR PRN PO For CIWA 8-14; Start 03/07/22 at 08:45 Lorazepam (Ativan) 8 mg PRN Q1HR PRN PO For CIWA 15 or greater; Start 03/07/22 at 08:45 Metoclopramide HCl (Reglan Vial) 10 mg 1X ONCE IVP Last administered on 03/06/22at 18:13; Start 03/06/22 at 18:00; Stop 03/06/22 at 18:11; Status DC Metoclopramide HCl (Reglan Vial) 10 mg STK-MED ONCE .ROUTE ; Start 03/06/22 at 18:10; Stop 03/06/22 at 18:10; Status DC Morphine Sulfate (Morphine Sulfate) 1 mg PRN Q1HR PRN IV PAIN Last administered on 03/07/22at 10:04; Start 03/07/22 at 08:45 Morphine Sulfate (Morphine Sulfate) 2 mg PRN Q2HR PRN IVP SEVERE PAIN 7-10 Last administered on 03/07/22at 11:41; Start 03/07/22 at 08:45; Stop 03/08/22 at 08:44 Multivitamins (Thera M Plus) 1 tab DAILY PO ; Start 03/12/22 at 09:00 Ondansetron HCl (Zofran) 4 mg PRN Q6HRS PRN IVP NAUSEA/VOMITING, 1st CHOICE Last administered on 03/07/22at 10:03; Start 03/07/22 at 08:45 Oxycodone/ Acetaminophen (Percocet 5/325) 1 tab PRN Q4HRS PRN PO MILD PAIN, 1ST CHOICE Last administered on 03/07/22at 09:42; Start 03/07/22 at 08:45 Pantoprazole Sodium (PROTONIX VIAL for IV PUSH) 40 mg DAILYAC IVP Last administered on 03/07/22at 09:43; Start 03/07/22 at 09:00 Potassium Chloride/Water 100 ml @ 100 mls/hr Q1H IV Last administered on 03/07/22at 11:41; Start 03/07/22 at 10:00; Stop 03/07/22 at 13:59 Potassium Chloride (Klor-Con) 40 meq BID PO Last administered on 03/07/22at 09:04; Start 03/07/22 at 09:00; Stop 03/08/22 at 08:59 Prochlorperazine Edisylate (Compazine) 10 mg PRN Q6HRS PRN IV NAUSEA/VOMITING, 2nd CHOICE; Start 03/07/22 at 08:45 Sennosides (Senna) 17.2 mg PRN BID PRN PO CONSTIPATION; Start 03/07/22 at 08:45 Sodium Chloride 1,000 ml @ 100 mls/hr Q10H IV Last administered on 03/07/22at 09:05; Start 03/07/22 at 08:45 Sodium Chloride 1,000 ml @ 999 mls/hr 1X ONCE IV ; Start 03/06/22 at 18:00; Stop 03/06/22 at 19:00; Status DC Thiamine HCl 300 mg/Dextrose 53 ml @ 100 mls/hr DAILY IV Last administered on 03/07/22at 10:05; Start 03/07/22 at 09:00; Stop 03/11/22 at 09:32 Tramadol HCl (Ultram) 50 mg 1X ONCE PO Last administered on 03/07/22at 00:19; Start 03/07/22 at 00:30; Stop 03/07/22 at 00:31; Status DC Zolpidem Tartrate (Ambien) 2.5 mg PRN QHS PRN PO INSOMNIA, 2nd CHOICE; Start 03/07/22 at 08:45 Allergies Allergies: Coded Allergies: No Known Drug Allergies (Unverified , 08/10/21) ROS Review Of Systems: CONSTITUTIONAL: No fever or chills EYES: No recent changes SKIN: No rash or itching CARDIOVASCULAR: No chest pain, syncope, palpitations, or edema RESPIRATORY: No SOB or cough GASTROINTESTINAL: abd pain, nausea, vomiting NEUROLOGICAL: No headaches or weakness ENDOCRINE: No cold or heat intolerance GENITOURINARY: No urgency or frequency of urination MUSCULOSKELETAL: No back pain or joint pain LYMPHATICS: No enlarged lymph nodes PSYCHIATRIC: No anxiety or depression Physical Exam Physical Exam: General: Pleasant, no acute distress, well groomed Eyes: conjunctiva anicteric, eyes full range of motion ENT: moist oral mucosa, normal dentition Neck: Trachea midline, no masses Respiratory: unlabored breathing, not using accessory muscles, no crackles or wheezes Cardiovascular: Regular rate and rhythm, no peripheral edema Abdomen: nontender, nondistended, no hepatosplenomegaly, no masses Skin: no rashes or skin lesions on visualized skin Psych: normal mood, affect. Alert and oriented x 3. Vitals VITALS Vital Signs Date Time Temp Pulse Resp B/P (MAP) Pulse Ox O2 Delivery O2 Flow Rate FiO2 03/07/22 11:41 18 97 Room Air 03/07/22 07:00 97.6 86 127/42 (70) 97.6 Labs Labs Laboratory Tests Test 03/06/22 17:40 03/06/22 18:00 Urine Collection Type Unknown Urine Color (Auto) Colorless Urine Turbidity Clear Urine pH (Auto) 7.0 (<5.0-8.0) Urine Specific [place] 1.004 (1.000-1.030) Urine Protein (Auto) Negative mg/dL (Negative) Urine Glucose (Auto)(UA) Negative mg/dL (Negative) Urine Ketones (Auto) Negative mg/dL (Negative) Urine Blood (Auto) Small (Negative) Urine Nitrite Negative (Negative) Urine Bilirubin (Auto) Negative (Negative) Urine Urobilinogen (Auto) Normal mg/dL (Normal) Urine Leukocyte Esterase (Auto) Negative (Negative) Urine RBC 1-2 /HPF (0-2) Urine WBC 0 /HPF (0-4) Urine Squamous Epithelial Cells Occ /LPF Urine Bacteria 0 /HPF (0-FEW) Urine Test Negative (NEG) Urine Opiates Screen Neg (NEG) Urine Methadone Screen Neg (NEG) Urine Barbiturates Neg (NEG) Urine Phencyclidine Screen Neg (NEG) Urine Amphetamine/Methamphetamine Neg (NEG) Urine Benzodiazepines Screen Neg (NEG) Urine Cocaine Screen Neg (NEG) Urine Cannabinoids Screen Neg (NEG) Urine Ethyl Alcohol Pos (NEG) White Blood Count 7.6 x10^3/uL (4.0-11.0) Red Blood Count 3.82 x10^6/uL (3.50-5.40) Hemoglobin 13.4 g/dL (12.0-15.5) Hematocrit 38.5 % (36.0-47.0) Mean Corpuscular Volume 101 fL (79-100) Mean Corpuscular Hemoglobin 35 pg (25-35) Mean Corpuscular Hemoglobin Concent 35 g/dL (31-37) Red Cell Distribution Width 18.7 % (11.5-14.5) Platelet Count 248 x10^3/uL (140-400) Neutrophils (%) (Auto) 56 % (31-73) Lymphocytes (%) (Auto) 36 % (24-48) Monocytes (%) (Auto) 7 % (0-9) Eosinophils (%) (Auto) 1 % (0-3) Basophils (%) (Auto) 1 % (0-3) Neutrophils # (Auto) 4.2 x10^3/uL (1.8-7.7) Lymphocytes # (Auto) 2.8 x10^3/uL (1.0-4.8) Monocytes # (Auto) 0.5 x10^3/uL (0.0-1.1) Eosinophils # (Auto) 0.1 x10^3/uL (0.0-0.7) Basophils # (Auto) 0.1 x10^3/uL (0.0-0.2) Sodium Level 141 mmol/L (136-145) Potassium Level 2.7 mmol/L (3.5-5.1) Chloride Level 96 mmol/L (98-107) Carbon Dioxide Level 27 mmol/L (21-32) Anion Gap 18 (6-14) Blood Urea Nitrogen 3 mg/dL (7-20) Creatinine 0.8 mg/dL (0.6-1.0) Estimated GFR (Cockcroft-Gault) 81.6 BUN/Creatinine Ratio 4 (6-20) Glucose Level 80 mg/dL (70-99) Calcium Level 8.2 mg/dL (8.5-10.1) Total Bilirubin 0.4 mg/dL (0.2-1.0) Aspartate Amino Transf (AST/SGOT) 108 U/L (15-37) Alanine Aminotransferase (ALT/SGPT) 39 U/L (14-59) Alkaline Phosphatase 172 U/L (46-116) Total Protein 8.3 g/dL (6.4-8.2) Albumin 3.3 g/dL (3.4-5.0) Albumin/Globulin Ratio 0.7 (1.0-1.7) Lipase 189 U/L (73-393) Ethyl Alcohol Level 378 mg/dL (0-10) Laboratory Tests Test 03/06/22 17:40 03/06/22 18:00 Urine Collection Type Unknown Urine Color (Auto) Colorless Urine Turbidity Clear Urine pH (Auto) 7.0 (<5.0-8.0) Urine Specific [place] 1.004 (1.000-1.030) Urine Protein (Auto) Negative mg/dL (Negative) Urine Glucose (Auto)(UA) Negative mg/dL (Negative) Urine Ketones (Auto) Negative mg/dL (Negative) Urine Blood (Auto) Small (Negative) Urine Nitrite Negative (Negative) Urine Bilirubin (Auto) Negative (Negative) Urine Urobilinogen (Auto) Normal mg/dL (Normal) Urine Leukocyte Esterase (Auto) Negative (Negative) Urine RBC 1-2 /HPF (0-2) Urine WBC 0 /HPF (0-4) Urine Squamous Epithelial Cells Occ /LPF Urine Bacteria 0 /HPF (0-FEW) Urine Test Negative (NEG) Urine Opiates Screen Neg (NEG) Urine Methadone Screen Neg (NEG) Urine Barbiturates Neg (NEG) Urine Phencyclidine Screen Neg (NEG) Urine Amphetamine/Methamphetamine Neg (NEG) Urine Benzodiazepines Screen Neg (NEG) Urine Cocaine Screen Neg (NEG) Urine Cannabinoids Screen Neg (NEG) Urine Ethyl Alcohol Pos (NEG) White Blood Count 7.6 x10^3/uL (4.0-11.0) Red Blood Count 3.82 x10^6/uL (3.50-5.40) Hemoglobin 13.4 g/dL (12.0-15.5) Hematocrit 38.5 % (36.0-47.0) Mean Corpuscular Volume 101 fL (79-100) Mean Corpuscular Hemoglobin 35 pg (25-35) Mean Corpuscular Hemoglobin Concent 35 g/dL (31-37) Red Cell Distribution Width 18.7 % (11.5-14.5) Platelet Count 248 x10^3/uL (140-400) Neutrophils (%) (Auto) 56 % (31-73) Lymphocytes (%) (Auto) 36 % (24-48) Monocytes (%) (Auto) 7 % (0-9) Eosinophils (%) (Auto) 1 % (0-3) Basophils (%) (Auto) 1 % (0-3) Neutrophils # (Auto) 4.2 x10^3/uL (1.8-7.7) Lymphocytes # (Auto) 2.8 x10^3/uL (1.0-4.8) Monocytes # (Auto) 0.5 x10^3/uL (0.0-1.1) Eosinophils # (Auto) 0.1 x10^3/uL (0.0-0.7) Basophils # (Auto) 0.1 x10^3/uL (0.0-0.2) Sodium Level 141 mmol/L (136-145) Potassium Level 2.7 mmol/L (3.5-5.1) Chloride Level 96 mmol/L (98-107) Carbon Dioxide Level 27 mmol/L (21-32) Anion Gap 18 (6-14) Blood Urea Nitrogen 3 mg/dL (7-20) Creatinine 0.8 mg/dL (0.6-1.0) Estimated GFR (Cockcroft-Gault) 81.6 BUN/Creatinine Ratio 4 (6-20) Glucose Level 80 mg/dL (70-99) Calcium Level 8.2 mg/dL (8.5-10.1) Total Bilirubin 0.4 mg/dL (0.2-1.0) Aspartate Amino Transf (AST/SGOT) 108 U/L (15-37) Alanine Aminotransferase (ALT/SGPT) 39 U/L (14-59) Alkaline Phosphatase 172 U/L (46-116) Total Protein 8.3 g/dL (6.4-8.2) Albumin 3.3 g/dL (3.4-5.0) Albumin/Globulin Ratio 0.7 (1.0-1.7) Lipase 189 U/L (73-393) Ethyl Alcohol Level 378 mg/dL (0-10) Images Images FINDINGS: Heart size is normal. No pericardial effusion. Visualized lung bases are clear. No pleural effusion. Evaluation solid organs is limited secondary to noncontrast technique. Diffuse hepatic steatosis. Spleen, pancreas, and adrenals are unremarkable. Cystic lesion at the pancreatic tail not well assessed on this study Gallbladder surgically absent. There is redemonstration of a large subcapsular left renal fluid collection measuring approximately 9.3 x 6.0 cm in transverse dimension. Collection is similar to mildly increased in size when compared to the prior study. There is mild surrounding perinephric fat stranding. No hydronephrosis. No renal or ureteral calculi. Bladder is partially distended and not well evaluated. Uterus is not enlarged. No abnormal adnexal mass. Large and small bowel are unremarkable. Appendix is absent. Small bowel is unremarkable. No free intra-abdominal air or fluid. No obstruction. Abdominal aorta has normal course and caliber. Bowel vasculature is patent. No enlarged intra-abdominal lymph nodes are identified. No suspicious osseous lesions or acute fractures. IMPRESSION: 1. Large subcapsular fluid collection at the left kidney measuring 9.3 x 6.0 cm transverse dimension which appears similar to mildly increased in size compared to study in November. There is adjacent inflammatory changes. Findings are nonspecific could relate to hematoma or infection. 2. Diffuse hepatic steatosis. Assessment/Plan Assessment/Plan Left perinephric fluid collection, since 11/19/21 VSS. No leukocytosis. Unclear etiology. +extrinsic compression of left kidney. Would anticipate decreasing size if hematoma. Agree with IR assessment--GI consult for possible intervention. Request fluid analysis, cytology from specimen if this is completed. Will follow. D/w Dr. Waite. ALONZO GARDNER March 07, 2022 13:49
--- NOTE | 2022-03-07 14:43 | PDOC2 ---
GI CONSULT Date of Service: DATE: 03/07/22 TIME: 14:12 Reason For Consult: pancreatic pseudocyst, perinephric fluid HPI: HPI: 36 y/o female admitted through ER - as before, tells me ill for over a year but worsening diffuse abdominal pain wrapping around both sides to back (worse on left) and n/v x 2 days. Alcohol level 378 yesterday. H/o pancreatitis (likely alcohol) w/ pseudocyst. Has seen urology in the past for possible renal hematoma but it is now thought this is less likely due to stable size (not decreasing) on CT. IR has seen and suspects this may be an atypical pancreatic pseudocyst. We're asked to see for recommendation for aspiration vs percutaneous or transgastric drainage. H/o reflux - says recently started on omeprazole and also had an EGD @ [facility] and follow-up appt w/ Dr. Mckeon. History otherwise limited - she is drowsy. IgG4 and CA19-9 normal in 07/2021, triglycerides normal 12/2021, elevated iron s aturation and low TIBC in 12/2021, low-normal B12 in 12/2021. No previous colonoscopy. S/p cholecystectomy (biliary dyskinesia). Hepatic steatosis on past imaging. CT 11/19/21: 12 x 9 cm subacute appearing left perinephric hematoma, mild stranding about the pancreatic head is consistent with pancreatitis, 12 mm fluid collection within the pancreatic head/body junction consistent with small pseudocyst CT 12/06/21: repeat demonstration of a large subcapsular fluid collection at the left kidney - slightly decreased in size, repeat demonstration of low-density lesion at the pancreas. CT 12/2021 @ [facility]: large subcapsular fluid collection at the lateral left kidney w/ adjacent inflammatory changes in perinephric fat and mild urothelial thickening of the proximal left ureter - the subcapsular collection abuts the pancreatic tail and there is mild inflammatory stranding around the pancreatic t ail w/ remaining pancreas being unremarkable. CT 03/06/22 (this admission): Large subcapsular fluid collection at the left kidney measuring 9.3 x 6.0 cm transverse dimension which appears similar to mildly increased in size compared to study in November. There is adjacent inflammatory changes. Findings are nonspecific could relate to hematoma or infection. PMH: PMH: PTSD, anxiety/depression back surgery x 4 FH: Family History: No pertinent hx Social History: Smoke: 1 pack per day ALCOHOL: heavy ROS: GEN: Difficult to obtain, see HPI. Vitals: Vitals: Vital Signs Date Time Temp Pulse Resp B/P (MAP) Pulse Ox O2 Delivery O2 Flow Rate FiO2 03/07/22 13:51 18 97 Room Air 03/07/22 07:00 97.6 86 127/42 (70) 97.6 Labs: Labs: Laboratory Tests Test 03/06/22 17:40 03/06/22 18:00 Urine Collection Type Unknown Urine Color (Auto) Colorless Urine Turbidity Clear Urine pH (Auto) 7.0 (<5.0-8.0) Urine Specific [place] 1.004 (1.000-1.030) Urine Protein (Auto) Negative mg/dL (Negative) Urine Glucose (Auto)(UA) Negative mg/dL (Negative) Urine Ketones (Auto) Negative mg/dL (Negative) Urine Blood (Auto) Small (Negative) Urine Nitrite Negative (Negative) Urine Bilirubin (Auto) Negative (Negative) Urine Urobilinogen (Auto) Normal mg/dL (Normal) Urine Leukocyte Esterase (Auto) Negative (Negative) Urine RBC 1-2 /HPF (0-2) Urine WBC 0 /HPF (0-4) Urine Squamous Epithelial Cells Occ /LPF Urine Bacteria 0 /HPF (0-FEW) Urine Test Negative (NEG) Urine Opiates Screen Neg (NEG) Urine Methadone Screen Neg (NEG) Urine Barbiturates Neg (NEG) Urine Phencyclidine Screen Neg (NEG) Urine Amphetamine/Methamphetamine Neg (NEG) Urine Benzodiazepines Screen Neg (NEG) Urine Cocaine Screen Neg (NEG) Urine Cannabinoids Screen Neg (NEG) Urine Ethyl Alcohol Pos (NEG) White Blood Count 7.6 x10^3/uL (4.0-11.0) Red Blood Count 3.82 x10^6/uL (3.50-5.40) Hemoglobin 13.4 g/dL (12.0-15.5) Hematocrit 38.5 % (36.0-47.0) Mean Corpuscular Volume 101 fL (79-100) Mean Corpuscular Hemoglobin 35 pg (25-35) Mean Corpuscular Hemoglobin Concent 35 g/dL (31-37) Red Cell Distribution Width 18.7 % (11.5-14.5) Platelet Count 248 x10^3/uL (140-400) Neutrophils (%) (Auto) 56 % (31-73) Lymphocytes (%) (Auto) 36 % (24-48) Monocytes (%) (Auto) 7 % (0-9) Eosinophils (%) (Auto) 1 % (0-3) Basophils (%) (Auto) 1 % (0-3) Neutrophils # (Auto) 4.2 x10^3/uL (1.8-7.7) Lymphocytes # (Auto) 2.8 x10^3/uL (1.0-4.8) Monocytes # (Auto) 0.5 x10^3/uL (0.0-1.1) Eosinophils # (Auto) 0.1 x10^3/uL (0.0-0.7) Basophils # (Auto) 0.1 x10^3/uL (0.0-0.2) Sodium Level 141 mmol/L (136-145) Potassium Level 2.7 mmol/L (3.5-5.1) Chloride Level 96 mmol/L (98-107) Carbon Dioxide Level 27 mmol/L (21-32) Anion Gap 18 (6-14) Blood Urea Nitrogen 3 mg/dL (7-20) Creatinine 0.8 mg/dL (0.6-1.0) Estimated GFR (Cockcroft-Gault) 81.6 BUN/Creatinine Ratio 4 (6-20) Glucose Level 80 mg/dL (70-99) Calcium Level 8.2 mg/dL (8.5-10.1) Total Bilirubin 0.4 mg/dL (0.2-1.0) Aspartate Amino Transf (AST/SGOT) 108 U/L (15-37) Alanine Aminotransferase (ALT/SGPT) 39 U/L (14-59) Alkaline Phosphatase 172 U/L (46-116) Total Protein 8.3 g/dL (6.4-8.2) Albumin 3.3 g/dL (3.4-5.0) Albumin/Globulin Ratio 0.7 (1.0-1.7) Lipase 189 U/L (73-393) Ethyl Alcohol Level 378 mg/dL (0-10) Allergies: Coded Allergies: No Known Drug Allergies (Unverified , 08/10/21) Medications: Current Medications Medications (Trade) Dose Ordered Sig/Deborah Route PRN Reason Start Time Stop Time Status Last Admin Dose Admin Metoclopramide HCl (Reglan Vial) 10 mg 1X ONCE IVP 03/06/22 18:00 03/06/22 18:11 DC 03/06/22 18:13 Fentanyl Citrate (Fentanyl 2ml Vial) 50 mcg 1X ONCE IVP 03/06/22 18:00 03/06/22 18:11 DC 03/06/22 18:18 Hydromorphone HCl (Dilaudid) 1 mg 1X ONCE IVP 03/06/22 19:00 03/06/22 19:02 DC 03/06/22 19:11 Tramadol HCl (Ultram) 50 mg 1X ONCE PO 03/07/22 00:30 03/07/22 00:31 DC 03/07/22 00:19 Thiamine HCl 300 mg/Dextrose 53 ml @ 100 mls/hr DAILY IV 03/07/22 09:00 03/11/22 09:32 03/07/22 10:05 Lorazepam (Ativan Inj) 2 mg PRN Q1HR PRN IV For CIWA 8-14 03/07/22 08:45 03/07/22 12:14 Ondansetron HCl (Zofran) 4 mg PRN Q6HRS PRN IVP NAUSEA/VOMITING, 1st CHOICE 03/07/22 08:45 03/07/22 10:03 Sodium Chloride 1,000 ml @ 100 mls/hr Q10H IV 03/07/22 08:45 03/07/22 09:05 Oxycodone/ Acetaminophen (Percocet 5/325) 1 tab PRN Q4HRS PRN PO MILD PAIN, 1ST CHOICE 03/07/22 08:45 03/07/22 09:42 Morphine Sulfate (Morphine Sulfate) 1 mg PRN Q1HR PRN IV PAIN 03/07/22 08:45 03/07/22 10:04 Morphine Sulfate (Morphine Sulfate) 2 mg PRN Q2HR PRN IVP SEVERE PAIN 7-10 03/07/22 08:45 03/08/22 08:44 03/07/22 13:51 Potassium Chloride (Klor-Con) 40 meq BID PO 03/07/22 09:00 03/08/22 08:59 03/07/22 09:04 Potassium Chloride/Water 100 ml @ 100 mls/hr Q1H IV 03/07/22 10:00 03/07/22 13:59 DC 03/07/22 13:51 Pantoprazole Sodium (PROTONIX VIAL for IV PUSH) 40 mg DAILYAC IVP 03/07/22 09:00 03/07/22 09:43 Imaging: Imaging: CT A/P 03/06 FINDINGS: Heart size is normal. No pericardial effusion. Visualized lung bases are clear. No pleural effusion. Evaluation solid organs is limited secondary to noncontrast technique. Diffuse hepatic steatosis. Spleen, pancreas, and adrenals are unremarkable. Cystic lesion at the pancreatic tail not well assessed on this study Gallbladder surgically absent. There is redemonstration of a large subcapsular left renal fluid collection measuring approximately 9.3 x 6.0 cm in transverse dimension. Collection is similar to mildly increased in size when compared to the prior study. There is mild surrounding perinephric fat stranding. No hydronephrosis. No renal or ureteral calculi. Bladder is partially distended and not well evaluated. Uterus is not enlarged. No abnormal adnexal mass. Large and small bowel are unremarkable. Appendix is absent. Small bowel is unremarkable. No free intra-abdominal air or fluid. No obstruction. Abdominal aorta has normal course and caliber. Bowel vasculature is patent. No enlarged intra-abdominal lymph nodes are identified. No suspicious osseous lesions or acute fractures. IMPRESSION: 1. Large subcapsular fluid collection at the left kidney measuring 9.3 x 6.0 cm transverse dimension which appears similar to mildly increased in size compared to study in November. There is adjacent inflammatory changes. Findings are nonspecific could relate to hematoma or infection. 2. Diffuse hepatic steatosis. PE: GEN: NAD HEENT: Atraumatic, PERRL LUNGS: CTAB HEART: RRR ABD: diffuse discomfort, quiet, soft EXTREMITY: No edema SKIN: No rashes, no jaundice NEURO/PSYCH: drowsy, falls asleep between questions A/P: A/P: Abd pain, n/v, alcohol intoxication H/o pancreatitis/pseudocyst (suspect from alcohol) Left renal fluid collection - unclear etiology, concern possible atypical pancreatic pseudocyst Macrocytosis, hypokalemia, elevated AST and Alk Phos GERD - recently started PPI and had EGD S/p cholecystectomy Hepatic steatosis -- Withdrawal precautions per primary. Will review EGD report/path and most recent office visit and discuss aspiration/drainage issue w/ Dr. Mckeon. Agree w/ IV PPI, NPO. EGD 01/27/[address] Mckeon: LA Grade C reflux esophagitis, erythematous mucosa in the prepyloric region of the stomach (biopsy w/ reactive gastropathy, negative for intestinal metaplasia and H. pylori), normal duodenum. GABRIELE KEBEDE March 07, 2022 14:43
[2022-03-07 15:00] VITALS: BP 143/101
[2022-03-07] MEDS: PROCHLORPERAZINE 10 MG/2 ML VIAL. IV PRN (17:44)
[2022-03-07 19:00] VITALS: BP 146/92
--- NOTE | 2022-03-07 20:00 | NUR ---
1999 CIWA: patient asleep at this time. Addendum: 03/07/22 at 2347 by OK BUTLER RN Amended: Links added.
[2022-03-07 23:25] VITALS: BP 138/101
[2022-03-08] VITALS (14 sets, daily range): BP systolic 140–167; BP diastolic 99–116
[2022-03-08] MEDS: MORPHINE SULFATE 2 MG/ML INJ. IVP PRN ×3 (01:35→06:22)
[2022-03-08] MEDS: PROCHLORPERAZINE 10 MG/2 ML VIAL. IV PRN ×2 (06:29→23:34)
[2022-03-08 08:06] LABS: BASO % 1 % (0-3); EOS # 0.1 x10^3/uL (0.0-0.7); EOS % 4 % (0-3); HEMATOCRIT 31.2 % (36.0-47.0); HEMOGLOBIN 10.4 g/dL (12.0-15.5); LYMPH # 1.5 x10^3/uL (1.0-4.8); LYMPH % 45 % (24-48); MEAN CORPUSCULAR HEMOGLOBIN 35 pg (25-35); MEAN CORPUSCULAR HGB CONC 34 g/dL (31-37); MEAN CORPUSCULAR VOLUME 104 fL (79-100); MONO # 0.2 x10^3/uL (0.0-1.1); MONO % 6 % (0-9); NEUT # 1.5 x10^3/uL (1.8-7.7); NEUT % 44 % (31-73); PLATELET COUNT 131 x10^3/uL (140-400); RED BLOOD COUNT 2.99 x10^6/uL (3.50-5.40); RED CELL DISTRIBUTION WIDTH 18.2 % (11.5-14.5); WHITE BLOOD COUNT 3.3 x10^3/uL (4.0-11.0)
[2022-03-08 08:18] LABS: CALCIUM 7.8 mg/dL (8.5-10.1); CREATININE 0.7 mg/dL (0.6-1.0); GFR 95.2; MAGNESIUM 1.4 mg/dL (1.8-2.4); PHOSPHORUS 2.7 mg/dL (2.6-4.7); POTASSIUM 4.3 mmol/L (3.5-5.1)
[2022-03-08] MEDS: IV NORMAL SALINE 1000ML BAG 1,000 ML IV SCH ×2 (08:24→22:46)
[2022-03-08] MEDS: PANTOPRAZOLE IV PUSH 40 MG VIAL. IVP SCH (08:24)
[2022-03-08] MEDS: THIAMINE INJ 300 MG in IV DEXTROSE 5% 50 ML IV SCH (08:24)
[2022-03-08] MEDS ORDERED: MAGNESIUM SULFATE 2GM 50 ML IV ONE (08:30)
[2022-03-08] MEDS: ENOXAPARIN 40 MG/0.4 ML SYRINGE. SQ SCH (08:53)
--- NOTE | 2022-03-08 08:54 | NUR ---
pt has possible IR procedure today, hector held
[2022-03-08] MEDS: MORPHINE SULFATE 2 MG/ML INJ. IV PRN ×9 (09:47→23:34)
--- NOTE | 2022-03-08 10:27 | PDOC ---
Date of Service: DATE: 03/08/22 TIME: 10:13 Subjective: Subjective: Feels a little better - still abd pain. No vomiting. Passed gas. Objective: Vital Signs: Vital Signs Date Time Temp Pulse Resp B/P (MAP) Pulse Ox O2 Delivery O2 Flow Rate FiO2 03/08/22 09:47 18 Room Air 03/08/22 07:36 97 03/08/22 07:00 98.5 80 150/99 (116) 98.5 Labs: Laboratory Tests Test 03/08/22 06:40 White Blood Count 3.3 x10^3/uL Red Blood Count 2.99 x10^6/uL Hemoglobin 10.4 g/dL Hematocrit 31.2 % Mean Corpuscular Volume 104 fL Mean Corpuscular Hemoglobin 35 pg Mean Corpuscular Hemoglobin Concent 34 g/dL Red Cell Distribution Width 18.2 % Platelet Count 131 x10^3/uL Neutrophils (%) (Auto) 44 % Lymphocytes (%) (Auto) 45 % Monocytes (%) (Auto) 6 % Eosinophils (%) (Auto) 4 % Basophils (%) (Auto) 1 % Neutrophils # (Auto) 1.5 x10^3/uL Lymphocytes # (Auto) 1.5 x10^3/uL Monocytes # (Auto) 0.2 x10^3/uL Eosinophils # (Auto) 0.1 x10^3/uL Basophils # (Auto) 0.0 x10^3/uL Sodium Level 141 mmol/L Potassium Level 4.3 mmol/L Chloride Level 103 mmol/L Carbon Dioxide Level 22 mmol/L Anion Gap 16 Blood Urea Nitrogen 5 mg/dL Creatinine 0.7 mg/dL Estimated GFR (Cockcroft-Gault) 95.2 Glucose Level 74 mg/dL Calcium Level 7.8 mg/dL Phosphorus Level 2.7 mg/dL Magnesium Level 1.4 mg/dL PE: GEN: NAD LUNGS: CTAB HEART: RRR ABD: soft, upper discomfort NEURO/PSYCH: still pretty drowsy A/P: Abd pain, alcohol overuse, h/o pancreatitis/pseudocyst GERD -- Cyst fluid studies ordered, unclear if aspirate to be done today - will attempt to clarify. Suspect surgical approach needed eventually - too far away from stomach for endoscopic drainage - surgery opinion for this? Justicifation of Admission Dx: Justifications for Admission: Justification of Admission Dx: Yes STAN-BRANINE,GABRIELE PA March 08, 2022 10:27
[2022-03-08 11:56] LABS: PROTHROMBIN TIME PATIENT 13.5 SEC (11.7-14.0)
--- NOTE | 2022-03-08 12:06 | PDOC ---
[employer] PROGRESS NOTE Date of Service DOS: DATE: 03/08/22 TIME: 12:04 Chief Complaint Chief Complaint Assessment/Plan Acute alcohol intoxication Acute abdominal pain due to large left renal subcapsular fluid Severe hypokalemia suggestive of volume depletion Intractable nausea vomiting Elevated AST to ALT ratio suggestive of chronic alcohol use History of pancreatic pseudocyst History of chronic pancreatitis IR today for aspiration of fluid Pending body fluid amylase CIWA protocol Urology consult IR consult GI consult Continue IV fluids PO and IV pain control IV electrolyte replacement as needed Lovenox for DVT prophylaxis Protonix GI prophylaxis ADA diet CODE STATUS full Discussed with RN and SW Disposition pending surgery and IR evaluation DPOA: Father History of Present Illness History of Present Illness 36-year-old female who presents today via [facility] for abdominal pain. Patient states that she has a history of chronic pancreatitis and that over the last couple of days she has increased her alcohol intake due to her abdominal pain. Patient states that she also has a history of a pseudocyst on her pancreas and that she sees Dr. Mckeon with gastrointestinal specialist and that she has a scheduled procedure in March to have the pseudocyst drained, she states that she continues to have increased pain. Patient states she had 5 beers today she states yesterday she drank quite a bit as well as took OxyContin for her pain. Patient states she has had nausea, vomiting and fever. EMS states that when they got to the home they found multiple empty liquor containers throughout the house, patient also has a small child with her and the child was unsupervised due to the intoxication of the mom. 03/08/2022 No acute events overnight. Patient seen examined bedside. Somewhat lethargic but following commands and making eye contact. Patient still on CIWA protocol. Plan for IR aspiration of fluid today. Vitals/I&O Vitals/I&O: Vital Signs Date Time Temp Pulse Resp B/P (MAP) Pulse Ox O2 Delivery O2 Flow Rate FiO2 03/08/22 11:00 98.5 80 162/110 (127) 96 Room Air 98.5 03/08/22 10:17 18 I & O 03/07/22 03/07/22 03/08/22 15:00 23:00 07:00 Intake Total 0 ml 200 ml Balance 0 ml 200 ml Physical Exam General: Alert, Oriented X3 Lungs: Clear Labs Labs: Laboratory Tests Test 03/08/22 06:40 5/24/22 11:10 White Blood Count 3.3 x10^3/uL (4.0-11.0) Red Blood Count 2.99 x10^6/uL (3.50-5.40) Hemoglobin 10.4 g/dL (12.0-15.5) Hematocrit 31.2 % (36.0-47.0) Mean Corpuscular Volume 104 fL (79-100) Mean Corpuscular Hemoglobin 35 pg (25-35) Mean Corpuscular Hemoglobin Concent 34 g/dL (31-37) Red Cell Distribution Width 18.2 % (11.5-14.5) Platelet Count 131 x10^3/uL (140-400) Neutrophils (%) (Auto) 44 % (31-73) Lymphocytes (%) (Auto) 45 % (24-48) Monocytes (%) (Auto) 6 % (0-9) Eosinophils (%) (Auto) 4 % (0-3) Basophils (%) (Auto) 1 % (0-3) Neutrophils # (Auto) 1.5 x10^3/uL (1.8-7.7) Lymphocytes # (Auto) 1.5 x10^3/uL (1.0-4.8) Monocytes # (Auto) 0.2 x10^3/uL (0.0-1.1) Eosinophils # (Auto) 0.1 x10^3/uL (0.0-0.7) Basophils # (Auto) 0.0 x10^3/uL (0.0-0.2) Sodium Level 141 mmol/L (136-145) Potassium Level 4.3 mmol/L (3.5-5.1) Chloride Level 103 mmol/L (98-107) Carbon Dioxide Level 22 mmol/L (21-32) Anion Gap 16 (6-14) Blood Urea Nitrogen 5 mg/dL (7-20) Creatinine 0.7 mg/dL (0.6-1.0) Estimated GFR (Cockcroft-Gault) 95.2 Glucose Level 74 mg/dL (70-99) Calcium Level 7.8 mg/dL (8.5-10.1) Phosphorus Level 2.7 mg/dL (2.6-4.7) Magnesium Level 1.4 mg/dL (1.8-2.4) Prothrombin Time 13.5 SEC (11.7-14.0) Prothromb Time International Ratio 1.1 (0.8-1.1) Activated Partial Thromboplast Time 33 SEC (24-38) Assessment and Plan Assessmemt and Plan Problems Medical Problems: (1) Abdominal pain Status: Acute (2) Alcohol intoxication Status: Acute (3) Pancreatitis, alcoholic, acute Status: Acute Comment Review of Relevant I have reviewed the following items jairo (where applicable) has been applied. Medications: Current Medications Medications (Trade) Dose Ordered Sig/Deborah Route PRN Reason Start Time Stop Time Status Last Admin Dose Admin Magnesium Sulfate 50 ml @ 25 mls/hr 1X ONCE IV 03/08/22 08:30 03/08/22 10:29 DC 03/08/22 11:10 Justifications for Admission Other Justification Abdominal pain and alcohol withdrawal ERIC ACEVEDO MD March 08, 2022 12:06
--- NOTE | 2022-03-08 13:02 | PN ---
PROGRESS NOTES Date of Service DATE: 03/08/22 TIME: 13:00 Subjective Subjective Pt in bed, says she needs to leave in order to feed her pet rabbit at home. Plans for aspiration today Objective Objective Vital Signs Date Time Temp Pulse Resp B/P (MAP) Pulse Ox O2 Delivery O2 Flow Rate FiO2 03/08/22 12:54 18 03/08/22 11:00 98.5 80 162/110 (127) 96 Room Air 98.5 Intake and Output 03/08/22 07:00 Intake Total 200 ml Balance 200 ml Intake Oral 200 ml # Voids 2 Physical Exam Physical Exam NAD, aox3 nonlabored respiration Diagnosis PROBLEM LIST Problems Medical Problems: (1) Abdominal pain Status: Acute (2) Alcohol intoxication Status: Acute (3) Pancreatitis, alcoholic, acute Status: Acute Assessment Assessment Problems Medical Problems: (1) Abdominal pain Status: Acute (2) Alcohol intoxication Status: Acute (3) Pancreatitis, alcoholic, acute Status: Acute Plan Plan of Care Left perinephric fluid collection, since 11/19/21 VSS. No leukocytosis. Unclear etiology. +extrinsic compression of left kidney. Would anticipate decreasing size if hematoma. GI and IR have seen, possible pancreatic origin. Plans for aspiration today then fluid analysis. Will follow peripherally, call if urologic intervention is required. Comment Review of Relevant I have reviewed the following items jairo (where applicable) has been applied. Labs Laboratory Tests Test 03/06/22 17:40 03/06/22 18:00 03/08/22 06:40 03/08/22 11:10 Urine Collection Type Unknown Urine Color (Auto) Colorless Urine Turbidity Clear Urine pH (Auto) 7.0 (<5.0-8.0) Urine Specific [place] 1.004 (1.000-1.030) Urine Protein (Auto) Negative mg/dL (Negative) Urine Glucose (Auto)(UA) Negative mg/dL (Negative) Urine Ketones (Auto) Negative mg/dL (Negative) Urine Blood (Auto) Small (Negative) Urine Nitrite Negative (Negative) Urine Bilirubin (Auto) Negative (Negative) Urine Urobilinogen (Auto) Normal mg/dL (Normal) Urine Leukocyte Esterase (Auto) Negative (Negative) Urine RBC 1-2 /HPF (0-2) Urine WBC 0 /HPF (0-4) Urine Squamous Epithelial Cells Occ /LPF Urine Bacteria 0 /HPF (0-FEW) Urine Test Negative (NEG) Urine Opiates Screen Neg (NEG) Urine Methadone Screen Neg (NEG) Urine Barbiturates Neg (NEG) Urine Phencyclidine Screen Neg (NEG) Urine Amphetamine/Methamphetamine Neg (NEG) Urine Benzodiazepines Screen Neg (NEG) Urine Cocaine Screen Neg (NEG) Urine Cannabinoids Screen Neg (NEG) Urine Ethyl Alcohol Pos (NEG) White Blood Count 7.6 x10^3/uL (4.0-11.0) 3.3 x10^3/uL (4.0-11.0) Red Blood Count 3.82 x10^6/uL (3.50-5.40) 2.99 x10^6/uL (3.50-5.40) Hemoglobin 13.4 g/dL (12.0-15.5) 10.4 g/dL (12.0-15.5) Hematocrit 38.5 % (36.0-47.0) 31.2 % (36.0-47.0) Mean Corpuscular Volume 101 fL (79-100) 104 fL (79-100) Mean Corpuscular Hemoglobin 35 pg (25-35) 35 pg (25-35) Mean Corpuscular Hemoglobin Concent 35 g/dL (31-37) 34 g/dL (31-37) Red Cell Distribution Width 18.7 % (11.5-14.5) 18.2 % (11.5-14.5) Platelet Count 248 x10^3/uL (140-400) 131 x10^3/uL (140-400) Neutrophils (%) (Auto) 56 % (31-73) 44 % (31-73) Lymphocytes (%) (Auto) 36 % (24-48) 45 % (24-48) Monocytes (%) (Auto) 7 % (0-9) 6 % (0-9) Eosinophils (%) (Auto) 1 % (0-3) 4 % (0-3) Basophils (%) (Auto) 1 % (0-3) 1 % (0-3) Neutrophils # (Auto) 4.2 x10^3/uL (1.8-7.7) 1.5 x10^3/uL (1.8-7.7) Lymphocytes # (Auto) 2.8 x10^3/uL (1.0-4.8) 1.5 x10^3/uL (1.0-4.8) Monocytes # (Auto) 0.5 x10^3/uL (0.0-1.1) 0.2 x10^3/uL (0.0-1.1) Eosinophils # (Auto) 0.1 x10^3/uL (0.0-0.7) 0.1 x10^3/uL (0.0-0.7) Basophils # (Auto) 0.1 x10^3/uL (0.0-0.2) 0.0 x10^3/uL (0.0-0.2) Sodium Level 141 mmol/L (136-145) 141 mmol/L (136-145) Potassium Level 2.7 mmol/L (3.5-5.1) 4.3 mmol/L (3.5-5.1) Chloride Level 96 mmol/L (98-107) 103 mmol/L (98-107) Carbon Dioxide Level 27 mmol/L (21-32) 22 mmol/L (21-32) Anion Gap 18 (6-14) 16 (6-14) Blood Urea Nitrogen 3 mg/dL (7-20) 5 mg/dL (7-20) Creatinine 0.8 mg/dL (0.6-1.0) 0.7 mg/dL (0.6-1.0) Estimated GFR (Cockcroft-Gault) 81.6 95.2 BUN/Creatinine Ratio 4 (6-20) Glucose Level 80 mg/dL (70-99) 74 mg/dL (70-99) Calcium Level 8.2 mg/dL (8.5-10.1) 7.8 mg/dL (8.5-10.1) Total Bilirubin 0.4 mg/dL (0.2-1.0) Aspartate Amino Transf (AST/SGOT) 108 U/L (15-37) Alanine Aminotransferase (ALT/SGPT) 39 U/L (14-59) Alkaline Phosphatase 172 U/L (46-116) Total Protein 8.3 g/dL (6.4-8.2) Albumin 3.3 g/dL (3.4-5.0) Albumin/Globulin Ratio 0.7 (1.0-1.7) Lipase 189 U/L (73-393) Ethyl Alcohol Level 378 mg/dL (0-10) Phosphorus Level 2.7 mg/dL (2.6-4.7) Magnesium Level 1.4 mg/dL (1.8-2.4) Prothrombin Time 13.5 SEC (11.7-14.0) Prothromb Time International Ratio 1.1 (0.8-1.1) Activated Partial Thromboplast Time 33 SEC (24-38) Laboratory Tests Test 03/08/22 06:40 03/08/22 11:10 White Blood Count 3.3 x10^3/uL (4.0-11.0) Red Blood Count 2.99 x10^6/uL (3.50-5.40) Hemoglobin 10.4 g/dL (12.0-15.5) Hematocrit 31.2 % (36.0-47.0) Mean Corpuscular Volume 104 fL (79-100) Mean Corpuscular Hemoglobin 35 pg (25-35) Mean Corpuscular Hemoglobin Concent 34 g/dL (31-37) Red Cell Distribution Width 18.2 % (11.5-14.5) Platelet Count 131 x10^3/uL (140-400) Neutrophils (%) (Auto) 44 % (31-73) Lymphocytes (%) (Auto) 45 % (24-48) Monocytes (%) (Auto) 6 % (0-9) Eosinophils (%) (Auto) 4 % (0-3) Basophils (%) (Auto) 1 % (0-3) Neutrophils # (Auto) 1.5 x10^3/uL (1.8-7.7) Lymphocytes # (Auto) 1.5 x10^3/uL (1.0-4.8) Monocytes # (Auto) 0.2 x10^3/uL (0.0-1.1) Eosinophils # (Auto) 0.1 x10^3/uL (0.0-0.7) Basophils # (Auto) 0.0 x10^3/uL (0.0-0.2) Sodium Level 141 mmol/L (136-145) Potassium Level 4.3 mmol/L (3.5-5.1) Chloride Level 103 mmol/L (98-107) Carbon Dioxide Level 22 mmol/L (21-32) Anion Gap 16 (6-14) Blood Urea Nitrogen 5 mg/dL (7-20) Creatinine 0.7 mg/dL (0.6-1.0) Estimated GFR (Cockcroft-Gault) 95.2 Glucose Level 74 mg/dL (70-99) Calcium Level 7.8 mg/dL (8.5-10.1) Phosphorus Level 2.7 mg/dL (2.6-4.7) Magnesium Level 1.4 mg/dL (1.8-2.4) Prothrombin Time 13.5 SEC (11.7-14.0) Prothromb Time International Ratio 1.1 (0.8-1.1) Activated Partial Thromboplast Time 33 SEC (24-38) Medications Current Medications Sodium Chloride 1,000 ml @ 999 mls/hr 1X ONCE IV ; Start 03/06/22 at 18:00; Stop 03/06/22 at 19:00; Status DC Metoclopramide HCl (Reglan Vial) 10 mg 1X ONCE IVP Last administered on 03/06/22at 18:13; Start 03/06/22 at 18:00; Stop 03/06/22 at 18:11; Status DC Fentanyl Citrate (Fentanyl 2ml Vial) 50 mcg 1X ONCE IVP Last administered on 03/06/22at 18:18; Start 03/06/22 at 18:00; Stop 03/06/22 at 18:11; Status DC Metoclopramide HCl (Reglan Vial) 10 mg STK-MED ONCE .ROUTE ; Start 03/06/22 at 18:10; Stop 03/06/22 at 18:10; Status DC Fentanyl Citrate (Fentanyl 2ml Vial) 100 mcg STK-MED ONCE .ROUTE ; Start 03/06/22 at 18:11; Stop 03/06/22 at 18:11; Status DC Hydromorphone HCl (Dilaudid) 1 mg 1X ONCE IVP Last administered on 03/06/22at 19:11; Start 03/06/22 at 19:00; Stop 03/06/22 at 19:02; Status DC Tramadol HCl (Ultram) 50 mg 1X ONCE PO Last administered on 03/07/22at 00:19; Start 03/07/22 at 00:30; Stop 03/07/22 at 00:31; Status DC Thiamine HCl 300 mg/Dextrose 53 ml @ 100 mls/hr DAILY IV Last administered on 03/08/22at 08:24; Start 03/07/22 at 09:00; Stop 03/11/22 at 09:32 Multivitamins (Thera M Plus) 1 tab DAILY PO ; Start 03/12/22 at 09:00 Folic Acid (Folic Acid) 1 mg DAILY PO ; Start 03/12/22 at 09:00 Lorazepam (Ativan) 4 mg PRN Q1HR PRN PO For CIWA 8-14; Start 03/07/22 at 08:45 Lorazepam (Ativan) 8 mg PRN Q1HR PRN PO For CIWA 15 or greater; Start 03/07/22 at 08:45 Lorazepam (Ativan Inj) 2 mg PRN Q1HR PRN IV For CIWA 8-14 Last administered on 03/08/22at 09:47; Start 03/07/22 at 08:45 Lorazepam (Ativan Inj) 4 mg PRN Q1HR PRN IV For CIWA 15 or greater; Start 03/07/22 at 08:45 Haloperidol Lactate (Haldol Inj) 5 mg PRN Q4HRS PRN IVP Hallucinatns,Confusn,Delirium; Start 03/07/22 at 08:45 Diphenhydramine HCl (Benadryl) 25 mg PRN Q15MIN PRN IVP EPS symptoms 2'Haldol admin; Start 03/07/22 at 08:45 Clonidine HCl (Catapres) 0.1 mg PRN Q1HR PRN PO SBP > 180 or DBP > 100, MRX3; Start 03/07/22 at 08:45 Sennosides (Senna) 17.2 mg PRN BID PRN PO CONSTIPATION; Start 03/07/22 at 08:45 Docusate Sodium (Colace) 100 mg PRN DAILY PRN PO HARD STOOLS; Start 03/07/22 at 08:45 Ondansetron HCl (Zofran) 4 mg PRN Q6HRS PRN IVP NAUSEA/VOMITING, 1st CHOICE Last administered on 03/07/22at 22:28; Start 03/07/22 at 08:45 Dextrose (Dextrose 50%-Water Syringe) 12.5 gm PRN Q15MIN PRN IV SEE COMMENTS; Start 03/07/22 at 08:45 Sodium Chloride 1,000 ml @ 100 mls/hr Q10H IV Last administered on 03/08/22at 08:24; Start 03/07/22 at 08:45 Acetaminophen (Tylenol) 650 mg PRN Q4HRS PRN PO TEMP OVER 100.4F OR MILD PAIN; Start 03/07/22 at 08:45 Lorazepam (Ativan) 0.5 mg PRN Q6HRS PRN PO ANXIETY / AGITATION; Start 03/07/22 at 08:45 Lorazepam (Ativan Inj) 0.25 mg PRN Q4HRS PRN IV ANXIETY / AGITATION; Start 02/14 01/04 at 08:45 Enoxaparin Sodium (Lovenox 40mg Syringe) 40 mg Q24H SQ ; Start 03/07/22 at 09:00 Oxycodone/ Acetaminophen (Percocet 5/325) 1 tab PRN Q4HRS PRN PO MILD PAIN, 1ST CHOICE Last administered on 03/07/22at 23:27; Start 03/07/22 at 08:45 Morphine Sulfate (Morphine Sulfate) 1 mg PRN Q1HR PRN IV PAIN Last administered on 03/08/22at 12:54; Start 03/07/22 at 08:45 Morphine Sulfate (Morphine Sulfate) 2 mg PRN Q2HR PRN IVP SEVERE PAIN 7-10 Last administered on 03/08/22at 06:22; Start 03/07/22 at 08:45; Stop 03/08/22 at 08:44; Status DC Prochlorperazine Edisylate (Compazine) 10 mg PRN Q6HRS PRN IV NAUSEA/VOMITING, 2nd CHOICE Last administered on 03/08/22at 06:29; Start 03/07/22 at 08:45 Diphenhydramine HCl (Benadryl) 25 mg PRN Q6HRS PRN IVP ITCHING; Start 03/07/22 at 08:45 Diphenhydramine HCl (Benadryl) 25 mg PRN Q6HRS PRN PO ITCHING; Start 03/07/22 at 08:45 Diphenhydramine HCl (Benadryl) 25 mg PRN QHS PRN PO INSOMNIA, 1st CHOICE; Start 03/07/22 at 08:45 Zolpidem Tartrate (Ambien) 2.5 mg PRN QHS PRN PO INSOMNIA, 2nd CHOICE; Start 03/07/22 at 08:45 Potassium Chloride (Klor-Con) 40 meq BID PO Last administered on 03/07/22at 21:58; Start 03/07/22 at 09:00; Stop 03/08/22 at 08:59; Status DC Potassium Chloride/Water 100 ml @ 100 mls/hr Q1H IV Last administered on 03/07/22at 16:13; Start 03/07/22 at 10:00; Stop 03/07/22 at 13:59; Status DC Pantoprazole Sodium (PROTONIX VIAL for IV PUSH) 40 mg DAILYAC IVP Last administered on 03/08/22at 08:24; Start 03/07/22 at 09:00 Magnesium Sulfate 50 ml @ 25 mls/hr 1X ONCE IV Last administered on 03/08/22at 11:10; Start 03/08/22 at 08:30; Stop 03/08/22 at 10:29; Status DC Active Scripts Active Hydrocodone-Apap 5-325 (Hydrocodone Bit/Acetaminophen) 1 Tab Tablet 1 Tab PO PRN Q6HRS PRN 10 Days Vitals/I & O Vital Sign - Last 24 Hours 03/07/22 03/07/22 03/07/22 03/07/22 13:51 14:21 15:00 16:14 Temp 99.5 99.5 Pulse 91 Resp 18 18 16 18 B/P (MAP) 143/101 (115) Pulse Ox 97 99 99 O2 Delivery Room Air Room Air Room Air Room Air 03/07/22 03/07/22 03/07/22 03/07/22 16:49 17:44 18:14 18:14 Resp 18 18 18 18 Pulse Ox 99 99 O2 Delivery Room Air Room Air Room Air Room Air 03/07/22 03/07/22 03/07/22 03/08/22 19:00 20:00 23:25 03:00 Temp 99.4 99.1 98.1 99.4 99.1 98.1 Pulse 91 96 70 Resp 18 18 18 B/P (MAP) 146/92 (110) 138/101 (113) 146/104 (118) Pulse Ox 97 95 97 O2 Delivery Room Air Room Air Room Air Room Air 03/08/22 03/08/22 03/08/22 03/08/22 07:00 07:36 08:00 09:47 Temp 98.5 98.5 Pulse 80 Resp 16 18 18 B/P (MAP) 150/99 (116) Pulse Ox 96 97 O2 Delivery Room Air Room Air Room Air Room Air 03/08/22 03/08/22 03/08/22 10:17 11:00 12:54 Temp 98.5 98.5 Pulse 80 Resp 18 18 B/P (MAP) 162/110 (127) Pulse Ox 97 96 O2 Delivery Room Air Room Air Intake and Output 03/07/22 03/07/22 03/08/22 15:00 23:00 07:00 Intake Total 0 ml 200 ml Balance 0 ml 200 ml ALONZO GARDNER March 08, 2022 13:02
[2022-03-08] MEDS ORDERED: LIDOCAINE WITH 8.4% SOD BICARB 3 ML DISP.SYRIN. ONE (13:13)
[2022-03-08] MEDS ORDERED: MIDAZOLAM HCL/PF 2 MG/2 ML VIAL. ONE (13:24)
[2022-03-08] MEDS ORDERED: fentaNYL PF VIAL 100 MCG/2 ML VIAL ONE (13:25)
[2022-03-08] MEDS ORDERED: MIDAZOLAM HCL/PF 2 MG/2 ML VIAL. IV ONE (13:45)
[2022-03-08] MEDS ORDERED: LIDOCAINE WITH 8.4% SOD BICARB 3 ML DISP.SYRIN. IJ ONE (13:45)
[2022-03-08] MEDS ORDERED: fentaNYL PF VIAL 100 MCG/2 ML VIAL IV ONE (13:45)
--- NOTE | 2022-03-08 15:32 | RAD ---
Ultrasound-guided aspiration, left perinephric fluid collection 03/08/2022 INDICATION: Left perinephric fluid collection. Pseudocyst versus chronic hematoma. COMPARISON STUDY: CT of the abdomen and pelvis March 06, 2022. Consent: The procedure was explained in its entirety to the patient or the patients designated repres entative by a member of the treatment team, including a discussion of the risks, benefits and commonl y accepted alternatives to the procedure, as well as the expected consequences of no therapy whatsoev er. Discussion of the risks included, but was not limited to, those that are most frequent and thos e that are rare but possibly severe or life-threatening, as well as the possibility of unforeseen com plications. Procedural detail: The patient was placed in the prone position. A timeout procedure was performed. T he left flank was prepped and draped using sterile barrier technique. 1% lidocaine was administered f or local anesthesia. Ultrasound evaluation demonstrates a left perinephric fluid collection. 1% lidoc loly was administered to the overlying skin and subcutaneous tissues. Under direct ultrasound guidanc e a 22-gauge spinal needle was advanced into the collection. Approximately 60 to 70 cc of dark fluid was aspirated. This was sent for further evaluation per ordering physician request. The needle was re moved. Manual pressure was held. Sterile dressings were applied. No immediate complications were iden tified. Sedation: The procedure was performed under conscious sedation including continuous cardiopulmonary m onitoring via a dedicated sedation nurse. [id number] sedation time: 20 minutes IMPRESSION: Ultrasound-guided aspiration, left perinephric fluid collection Electronically signed by: Amador Mack MD (03/08/2022 3:29 PM) [id number]
[2022-03-08] MEDS: oxyCODONE/APAP 5/325 1 TAB TABLET PO PRN (15:41)
[2022-03-08] MEDS: ONDANSETRON PF 4 MG/2 ML VIAL. IVP PRN (19:17)
[2022-03-09] MEDS: MORPHINE SULFATE 2 MG/ML INJ. IV PRN (01:51)
[2022-03-09 07:00] VITALS: BP 143/104
[2022-03-09 07:44] LABS: BASO % 1 % (0-3); EOS # 0.2 x10^3/uL (0.0-0.7); EOS % 5 % (0-3); HEMATOCRIT 35.2 % (36.0-47.0); HEMOGLOBIN 11.8 g/dL (12.0-15.5); LYMPH # 1.8 x10^3/uL (1.0-4.8); LYMPH % 37 % (24-48); MEAN CORPUSCULAR HEMOGLOBIN 35 pg (25-35); MEAN CORPUSCULAR HGB CONC 34 g/dL (31-37); MEAN CORPUSCULAR VOLUME 103 fL (79-100); MONO # 0.3 x10^3/uL (0.0-1.1); MONO % 6 % (0-9); NEUT # 2.5 x10^3/uL (1.8-7.7); NEUT % 53 % (31-73); PLATELET COUNT 130 x10^3/uL (140-400); RED BLOOD COUNT 3.41 x10^6/uL (3.50-5.40); RED CELL DISTRIBUTION WIDTH 17.3 % (11.5-14.5); WHITE BLOOD COUNT 4.8 x10^3/uL (4.0-11.0)
[2022-03-09 07:49] LABS: CALCIUM 8.6 mg/dL (8.5-10.1); CREATININE 0.6 mg/dL (0.6-1.0); GFR 113.8; MAGNESIUM 1.6 mg/dL (1.8-2.4); POTASSIUM 3.5 mmol/L (3.5-5.1)
--- NOTE | 2022-03-09 08:00 | NUR ---
PT REFUSED MORNING ASSESSMENTS, STATES SHE WILL BE LEAVING SOON.
[2022-03-09] MEDS ORDERED: MAGNESIUM SULFATE 2GM 50 ML IV ONE (09:00)
[2022-03-09] MEDS ORDERED: POTASSIUM CHLORIDE 20 MEQ TABLET.ER. PO ONE (09:00)
--- NOTE | 2022-03-09 09:27 | NUR ---
PT REQUESTING "ID LIKE TO LEAVE AMA AND NOW PLEASE." AMA FORM SIGNED, IV'S TO BE REMOVED AND SECURITY CALLED.
--- NOTE | 2022-03-09 10:10 | NUR ---
PT CALLED STATING HER RIDE IS HERE AND SHE IS READY TO GO. SECURITY ARRIVED AND PT ESCORTED OFF UNIT AND DOWNSTAIRS TO THE ER TO HER RIDE.
--- NOTE | 2022-03-09 10:41 | PDOC ---
Date of Service: DATE: 03/09/22 TIME: 10:38 Subjective: Subjective: I saw earlier this morning with Dr. Mckeon - she said she was feeling a little better. Objective: Objective: Reviewed nursing notes - since we have seen, she left AMA. Vital Signs: Vital Signs Date Time Temp Pulse Resp B/P (MAP) Pulse Ox O2 Delivery O2 Flow Rate FiO2 03/09/22 07:00 98.4 87 18 143/104 (117) 98 Room Air 98.4 03/08/22 13:50 2.0 Labs: Laboratory Tests Test 03/08/22 11:10 03/09/22 06:40 Prothrombin Time 13.5 SEC Prothromb Time International Ratio 1.1 Activated Partial Thromboplast Time 33 SEC White Blood Count 4.8 x10^3/uL Red Blood Count 3.41 x10^6/uL Hemoglobin 11.8 g/dL Hematocrit 35.2 % Mean Corpuscular Volume 103 fL Mean Corpuscular Hemoglobin 35 pg Mean Corpuscular Hemoglobin Concent 34 g/dL Red Cell Distribution Width 17.3 % Platelet Count 130 x10^3/uL Neutrophils (%) (Auto) 53 % Lymphocytes (%) (Auto) 37 % Monocytes (%) (Auto) 6 % Eosinophils (%) (Auto) 5 % Basophils (%) (Auto) 1 % Neutrophils # (Auto) 2.5 x10^3/uL Lymphocytes # (Auto) 1.8 x10^3/uL Monocytes # (Auto) 0.3 x10^3/uL Eosinophils # (Auto) 0.2 x10^3/uL Basophils # (Auto) 0.0 x10^3/uL Sodium Level 137 mmol/L Potassium Level 3.5 mmol/L Chloride Level 99 mmol/L Carbon Dioxide Level 21 mmol/L Anion Gap 17 Blood Urea Nitrogen 2 mg/dL Creatinine 0.6 mg/dL Estimated GFR (Cockcroft-Gault) 113.8 Glucose Level 74 mg/dL Calcium Level 8.6 mg/dL Magnesium Level 1.6 mg/dL Imagin/24 IMPRESSION: Ultrasound-guided aspiration, left perinephric fluid collection PE: GEN: NAD - walking to restroom ABD: non-distended NEURO/PSYCH: A & O 3 - seems more awake today A/P: Abd pain, alcohol overuse, h/o pancreatitis/pseudocyst/left perinephric fluid collection s/p aspiration - fluid studies pending GERD -- Left AMA, hopefully will f/u re: fluid studies, chronic issues, etc. Justicifation of Admission Dx: Justifications for Admission: Justification of Admission Dx: Yes GABRIELE KEBEDE March 09, 2022 10:41
[2022-03-12] MEDS ORDERED: MULTIVITAMIN with MINERAL TABLET. PO SCH (09:00)
[2022-03-12] MEDS ORDERED: FOLIC ACID 1 MG TABLET. PO SCH (09:00)
--- NOTE | 2022-03-12 15:03 | PDOC3 ---
[facility]-Discharge Summary Date of Admission: Date of Admission: March 07, 2022 Date of Discharge: Date of Discharge: March 09, 2022 Discharge Diagnosis: Discharge Diagnosis: As perAcute alcohol intoxication Acute abdominal pain due to large left renal subcapsular fluid fluid aspiration from presumed pancreatic pseudocyst and a very peculiar location Severe hypokalemia suggestive of volume depletion Intractable nausea vomiting Elevated AST to ALT ratio suggestive of chronic alcohol use History of pancreatic pseudocyst History of chronic pancreatitis Hospital Course: Hospital Course: 36-year-old female who presents today via [facility] for abdominal pain. Patient states that she has a history of chronic pancreatitis and that over the last couple of days she has increased her alcohol intake due to her abdominal pain. Patient states that she also has a history of a pseudocyst on her pancreas and that she sees Dr. Mckeon with gastrointestinal specialist and that she has a scheduled procedure in March to have the pseudocyst drained, she states that she continues to have increased pain. Patient states she had 5 beers today she states yesterday she drank quite a bit as well as took OxyContin for her pain. Patient states she has had nausea, vomiting and fever. EMS states that when they got to the home they found multiple empty liquor containers throughout the house, patient also has a small child with her and the child was unsupervised due to the intoxication of the mom. 03/08/2022 No acute events overnight. Patient seen examined bedside. Somewhat lethargic but following commands and making eye contact. Patient still on CIWA protocol. Plan for IR aspiration of fluid today. Status post aspiration and dark fluid was drained. Patient's pain improved by time of discharge. Unfortunately patient left AMA before formal discharge was arranged and before pleural fluids return. Evaluation of labs today showed that amylase was elevated in greater than 13,000 suggestive of pancreatic fluid. Rest of hospital course was uneventful. Patient will need to follow-up closely with gastroenterology for further management for her pancreatic pseudocyst Disposition: Disposition/Orders: Other (Patient left AMA) Activity: Activity: Resume previous activity Diet: Diet: Regular Medications: Home Meds Active Scripts Hydrocodone Bit/Acetaminophen (HYDROCODONE-APAP 5-325 ) 1 Tab Tablet, 1 TAB PO PRN Q6HRS PRN for PAIN for 10 Days, #20 TAB Prov:ALYSA ALEXANDER MD 12/20/21 Scheduled PRN Hydrocodone Bit/Acetaminophen (Hydrocodone-Apap 5-325 ), 1 TAB PO PRN Q6HRS PRN for PAIN Total Time: Total Time: Total time spent was 34 minutes in preparing scripts, discharge planning with SWI and RN and preparing this discharge summary Patient seen and examined on day of discharge. No acute abnormal findings. Justicifation of Admission Dx: Justifications for Admission: Justification of Admission Dx: Yes ERIC ACEVEDO MD March 12, 2022 15:03
== END 2022-03-09 10:10 | disposition left against medical advice (07) | DRG 440 ==
LOC: ER 17:20 → 4 NORTH 19:29
PROVIDERS: ADMIT Student in an Organized Health Care Education/Training Program; ATTEND Student in an Organized Health Care Education/Training Program
PROC: 0T913ZX Drainage of Left Kidney, Percutaneous Approach, Diagnostic (ICD-10-PCS; principal; 2022-03-08)
DX: K85.20 Alcohol induced acute pancreatitis without necrosis or infection (principal); F10.129 Alcohol abuse with intoxication, unspecified; E87.6 Hypokalemia; F17.210 Nicotine dependence, cigarettes, uncomplicated; F32.A Depression, unspecified; F43.10 Post-traumatic stress disorder, unspecified; I10 Essential (primary) hypertension; K21.9 Gastro-esophageal reflux disease without esophagitis; K76.0 Fatty (change of) liver, not elsewhere classified; K86.1 Other chronic pancreatitis; Y90.8 Blood alcohol level of 240 mg/100 ml or more; Z53.29 Procedure and treatment not carried out because of patient's decision for other reasons; Z90.49 Acquired absence of other specified parts of digestive tract
CPT/HCPCS: 10005; 36415; 74176; 80048; 80053; 80307; 81001; 81025; 82042; 82150; 82945; 83690; 83735; 84100; 84157; 85025; 85610; 85730; 96374; 96375; 99152; C9113; G0480; J0780; J1170; J2060; J2250; J2270; J2405; J2765; J3010; J3411; J3475; J3480; J3490; J7030; J7060; 99285-25; G0378